=== PATIENT | female | born 1950 | race Caucasian/White ===

== ENCOUNTER 2019-08-09 14:56 | Outpatient (CLI) | payer MEDICARE, SELFPAY ==
--- NOTE | 2019-08-09 15:05 | MR_ITS ---
WS: [id number] MRI LUMBAR SPINE NONCONTRAST TECHNIQUE: Sagittal T1, T2 and STIR imaging. Axial T1 and T2 imaging. CLINICAL INFORMATION: LOW BACK PAIN COMPARISON: None. FINDINGS: Mild lumbar curve. Slight retrolisthesis L2 on L3. Slight anterolisthesis L4 on L5. Schmorl's nodes i n the lower thoracic spine. No high-grade central canal stenosis. Tarlov cysts in the sacrum. L1-L2: Normal. L2-L3: Mild annular bulging with slight effacement of ventral thecal sac. Mild facet arthropathy. Spi nal canal and foramen are patent. L3-L4: Mild annular bulging with slight effacement of ventral thecal sac. Mild facet arthropathy. Spi nal canal and foramen are patent. L4-L5: Grade 1 anterolisthesis L4 on L5. Left foraminal protrusion with mild to moderate left and no significant right foraminal narrowing. Contact of the exiting left L4 nerve root. Mild right foramina l narrowing. Moderate to advanced facet arthropathy. L5-S1: Left eccentric disc osteophyte complex contacts the exiting left L5 nerve root with mild left foraminal narrowing. Right foramen is patent. Moderate facet arthropathy. Visualized pelvic bony structures: Normal. Paravertebral soft tissues: Normal. MR/MR lumbar spine wo con* [id number] IMPRESSION: 1. Left foraminal disc protrusion L4-5 slightly impinges the exiting L4 nerve root with moderate left foraminal narrowing. Recommend correlation for left L4 nerve root symptoms. 2. Left eccentric disc osteophyte complex L5-S1 contacts the exiting left L5 n erve root with mild left foraminal narrowing. 3. Moderate facet arthropathy L3-L4 and L4-L5.
--- NOTE | 2019-08-09 15:05 | MR_ITS ---
WS: [id number] INDICATION: Bilateral hip pain TECHNIQUE: MRI bilateral hips without gadolinium enhancement. Axial T1, axial T2, coronal T1, coronal STIR, sagittal T1, sagittal T2 imaging. FINDINGS: Normal anatomic alignment. No acute fractures. Moderate degenerative arthritis both hips wi th joint space narrowing. No subchondral edema. No significant joint effusion. No edema in the underlying acetabulum. Normal pubic rami. Normal bone marrow signal in the femoral he ads and necks. No evidence of avascular necrosis or subchondral collapse. Proximal femoral shafts are normal in appearance. Normal bony pelvis. Sacrum is normal in appearance. Normal pelvic soft tissues . No inguinal lymphadenopathy. MR/MR hips BI wo con [id number] IMPRESSION: 1. Moderate degenerative arthritis both hips with joint space narrowing. No ac [place] fractures. 2. Normal bone marrow signal in both femoral heads and necks. No evidence of a vascular necrosis. 3. Normal bone marrow signal in the pelvis and sacrum. 4. Normal visualized soft tissues.
== END 2019-08-09 14:57 | disposition home or self-care (01) ==
PROVIDERS: Family Provider Family Medicine; PCP Family Medicine; Visit Provider Family Medicine
DX: M51.26 Other intervertebral disc displacement, lumbar region (principal); M47.816 Spondylosis without myelopathy or radiculopathy, lumbar region; M16.0 Bilateral primary osteoarthritis of hip; G30.9 Alzheimer's disease, unspecified; F02.80 Dementia in other diseases classified elsewhere, unspecified severity, without behavioral disturbance, psychotic disturbance, mood disturbance, and anxiety; M54.9 Dorsalgia, unspecified; F44.4 Conversion disorder with motor symptom or deficit; M51.16 Intervertebral disc disorders with radiculopathy, lumbar region
CPT/HCPCS: 72148; 73721; 96116; 99204

== ENCOUNTER 2019-08-17 06:00 | Outpatient (RCR) | payer MEDICARE, SELFPAY | END 2019-09-03 23:59 | disposition home or self-care (01) | LOC: WPT 06:00 | PROVIDERS: Family Provider Family Medicine; PCP Family Medicine; Referring Provider Specialist; Visit Provider Specialist | DX: M54.9 Dorsalgia, unspecified (principal) | CPT/HCPCS: 97110; 97163 ==

== ENCOUNTER 2019-09-04 06:00 | Outpatient (RCR) | payer MEDICARE, SELFPAY | END 2019-10-04 23:59 | disposition home or self-care (01) | LOC: WPT 06:00 | PROVIDERS: Family Provider Family Medicine; PCP Family Medicine; Referring Provider Specialist; Visit Provider Specialist | DX: M54.9 Dorsalgia, unspecified (principal) | CPT/HCPCS: 97110; 97112; 97140; G0283 ==

== ENCOUNTER → 2019-09-09 12:34 | Outpatient (BNVA) | payer MEDICARE, SELFPAY | PROVIDERS: Family Provider Family Medicine; PCP Family Medicine; Visit Provider Anesthesiology | DX: M51.16 Intervertebral disc disorders with radiculopathy, lumbar region (principal); M79.651 Pain in right thigh; M79.652 Pain in left thigh; Z79.891 Long term (current) use of opiate analgesic | CPT/HCPCS: 99214 ==

== ENCOUNTER 2019-12-05 06:00 | Outpatient (RCR) | payer MEDICARE, SELFPAY | END 2020-01-03 23:59 | disposition home or self-care (01) | LOC: WPT 06:00 | PROVIDERS: Family Provider Family Medicine; PCP Family Medicine; Referring Provider Licensed Practical Nurse; Visit Provider Licensed Practical Nurse | DX: M51.17 Intervertebral disc disorders with radiculopathy, lumbosacral region (principal) | CPT/HCPCS: 97110; 97163 ==

== ENCOUNTER → 2019-12-08 13:41 | Outpatient (BNVA) | payer MEDICARE, SELFPAY | PROVIDERS: Family Provider Family Medicine; PCP Family Medicine; Visit Provider Anesthesiology | DX: M51.16 Intervertebral disc disorders with radiculopathy, lumbar region (principal); M54.9 Dorsalgia, unspecified; Z79.891 Long term (current) use of opiate analgesic | CPT/HCPCS: 99214 ==

== ENCOUNTER 2020-01-04 06:00 | Outpatient (RCR) | payer MEDICARE, SELFPAY | END 2020-02-03 23:59 | disposition home or self-care (01) | LOC: WPT 06:00 | PROVIDERS: Family Provider Family Medicine; PCP Family Medicine; Referring Provider Licensed Practical Nurse; Visit Provider Licensed Practical Nurse | DX: M47.816 Spondylosis without myelopathy or radiculopathy, lumbar region (principal); M51.17 Intervertebral disc disorders with radiculopathy, lumbosacral region; M43.17 Spondylolisthesis, lumbosacral region | CPT/HCPCS: 97110; 97112 ==

== ENCOUNTER → 2020-01-16 13:33 | Outpatient (BNVA) | payer MEDICARE, SELFPAY | PROVIDERS: Family Provider Family Medicine; PCP Family Medicine; Visit Provider Specialist | DX: G30.9 Alzheimer's disease, unspecified (principal); F02.80 Dementia in other diseases classified elsewhere, unspecified severity, without behavioral disturbance, psychotic disturbance, mood disturbance, and anxiety; M51.17 Intervertebral disc disorders with radiculopathy, lumbosacral region; M46.1 Sacroiliitis, not elsewhere classified; R41.9 Unspecified symptoms and signs involving cognitive functions and awareness | CPT/HCPCS: 96116; 99213; 99214 ==

== ENCOUNTER 2020-01-17 12:58 | Outpatient (CLI) | payer MEDICARE, SELFPAY ==
--- NOTE | 2020-01-17 14:15 | XR_ITS ---
WS: [id number] Lumbar spine with flexion, extension, and neutral lateral, 01/17/2020 Clinical Data: Low back pain Comparison: None. Findings: No compression fractures or subluxation is seen. There is degenerative disc narrowing at L5-S1. Minim al 0.3 cm subluxation of L4 on L5 is seen. No increased subluxation is seen on flexion or extension. There is minimal limitation of motion on fl exion and extension. There is calcification of the wall of the abdominal aorta but no aneurysm is se en. XR/XR lumbar spine f/e only [id number] Impression: 1. Limitation of motion on flexion and extension. 2. Anterolisthesis of L4 and L5 0.3 cm. 3. Degenerative disc narrowing at L5-S1.
== END 2020-01-17 12:59 | disposition home or self-care (01) ==
LOC: RAD 12:59
PROVIDERS: PCP Family Medicine; Visit Provider Licensed Practical Nurse
DX: M54.5 Low back pain (principal)
CPT/HCPCS: 72120

== ENCOUNTER 2020-01-17 13:03 | Outpatient (CLI) | payer MEDICARE, SELFPAY ==
--- NOTE | 2020-01-17 12:45 | USCV_ITS ---
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
--- NOTE | 2020-01-17 14:15 | USCV_ITS ---
Melvi Jaeger Age: 69 Gender: F : 1950 Exam Date: 01/17/2020 14:16 Ordering Phys: Rozina Kauffman Technologist: Jing Avilez [place] [facility] [place]ication: lower extremity edema BP: / HR: 61 Rhythm: Sinus Technical Quality: TDS due to body habitus MEASUREMENTS (Male / Female) Normal Values 2D ECHO LV Diastolic Diameter PLAX 3.9 cm 4.2 - 5.9 / 3.9 - 5.3 cm LV Systolic Diameter PLAX 2.3 cm IVS Diastolic Thickness 1.4 cm 0.6 - 1.0 / 0.6 - 0.9 cm IVS Systolic Thickness 1.6 cm LVPW Diastolic Thickness 1.1 cm 0.6 - 1.0 / 0.6 - 0.9 cm LVPW Systolic Thickness 1.9 cm LVOT Diameter 2.0 cm LV Ejection Fraction 2D Teich 73.0 % LV Ejection Fraction MOD 2C 82.1 % LV Ejection Fraction 2C AL 80.8 % LA Diameter 3.9 cm LA Width 4.1 cm LA Height 6.2 cm RA Width 4.0 cm RA Height 5.7 cm M-MODE LV Diastolic Diameter MM 6.1 cm 4.2 - 5.9 / 3.9 - 5.3 cm LV Systolic Diameter MM 4.4 cm LV Ejection Fraction MM Teich 52.7 % IVS Diastolic Thickness MM 0.7 cm 0.6 - 1.0 / 0.6 - 0.9 cm IVS Systolic Thickness MM 0.9 cm LVPW Diastolic Thickness MM 0.5 cm 0.6 - 1.0 / 0.6 - 0.9 cm LVPW Systolic Thickness MM 1.1 cm Aortic Annulus Diameter 3.0 cm LA Ao Ratio MM 1.3 MV E Point Septal Separation 0.9 cm DOPPLER AV Peak Velocity 132.0 cm/s LVOT Peak Velocity 90.0 cm/s AV Area Cont Eq vti 1.9 cm squared AV Area Cont Eq pk 2.2 cm squared MV Peak Velocity 124.0 cm/s MV Area PHT 3.9 cm squared Mitral E to A Ratio 2.7 MV E' Velocity 13.0 cm/s Mitral E to MV E' Ratio 10.4 Mitral E to LV E' Lateral Ratio 8.4 Mitral E to LV E' Septal Ratio 13.6 TR Peak Velocity 297.0 cm/s TR Peak Gradient 35.3 mmHg Right Atrial Pressure 3.0 mmHg Pulmonary Artery Systolic Pressu 38.3 mmHg PV Peak Velocity 88.0 cm/s RV Acceleration Time 0.1 s FINDINGS Left Ventricle Normal left ventricular size and systolic function with no regional wall motion abnormalities. Mild concentric left ventricular hypertrophy left ventricular ejection fraction is estimated at 60%. Grade III diastolic dysfunction (restrictive filling pattern), severely elevated filling pressures. Right Ventricle Normal right ventricular size and systolic function, RVSP 38.3 mmHg. Right Atrium Normal right atrial size. Right atrial pressure estimated at 3 mmHg. Left Atrium Mildly increased left atrial size. Mitral Valve Structurally normal mitral valve. No mitral valve stenosis. Mild-moderate mitral valve regurgitation. Aortic Valve Structurally normal trileaflet aortic valve. No aortic valve stenosis. No aortic valve regurgitation. Tricuspid Valve Structurally normal tricuspid valve. Moderate tricuspid valve regurgitation. Pulmonic Valve Pulmonic valve not well visualized. No pulmonary valve stenosis. Trace pulmonary valve regurgitation. Pericardium No pericardial effusion. Aorta Normal size aortic root and proximal ascending aorta. CONCLUSIONS 1. This is a technically difficult study. 2. Normal left ventricular size and systolic function with no regional wall motion abnormalities. Mild concentric left ventricular hypertrophy left ventricular ejection fraction is estimated at 60%. Grade III diastolic dysfunction (restrictive filling pattern), severely elevated filling pressures. 3. Pulmonary artery pressure estimated at 38 mmHg. 4. Moderate tricuspid valve regurgitation. 5. No prior similar studies to compare. Liliane Negrete MD (Electronically Signed) Final Date: 18 January 2020 13:34 S
== END 2020-01-17 13:04 | disposition home or self-care (01) ==
LOC: US 13:03
PROVIDERS: PCP Family Medicine; Visit Provider Nurse Practitioner Family
DX: R60.0 Localized edema (principal); I73.9 Peripheral vascular disease, unspecified; I07.1 Rheumatic tricuspid insufficiency
CPT/HCPCS: 93306; 93925

== ENCOUNTER 2020-02-04 06:00 | Outpatient (RCR) | payer MEDICARE, SELFPAY | END 2020-03-05 23:59 | disposition home or self-care (01) | LOC: WPT 06:00 | PROVIDERS: PCP Family Medicine; Referring Provider Licensed Practical Nurse; Visit Provider Licensed Practical Nurse | DX: M47.816 Spondylosis without myelopathy or radiculopathy, lumbar region (principal); M51.17 Intervertebral disc disorders with radiculopathy, lumbosacral region | CPT/HCPCS: 97110; 97112; 97530 ==

== ENCOUNTER → 2020-02-16 09:30 | Outpatient (BNVA) | payer MEDICARE, SELFPAY | PROVIDERS: PCP Family Medicine; Visit Provider Anesthesiology | DX: M51.16 Intervertebral disc disorders with radiculopathy, lumbar region (principal); M47.816 Spondylosis without myelopathy or radiculopathy, lumbar region; M43.17 Spondylolisthesis, lumbosacral region; M54.9 Dorsalgia, unspecified; Z79.891 Long term (current) use of opiate analgesic | CPT/HCPCS: 99214 ==

== ENCOUNTER 2020-03-06 06:00 | Outpatient (RCR) | payer MEDICARE, SELFPAY | END 2020-04-04 23:59 | disposition home or self-care (01) | LOC: WPT 06:00 | PROVIDERS: PCP Family Medicine; Referring Provider Licensed Practical Nurse; Visit Provider Licensed Practical Nurse | DX: M51.17 Intervertebral disc disorders with radiculopathy, lumbosacral region (principal); M43.17 Spondylolisthesis, lumbosacral region | CPT/HCPCS: 97110 ==

== ENCOUNTER → 2020-04-12 14:00 | Outpatient (BNVA) | payer MEDICARE, SELFPAY | PROVIDERS: PCP Family Medicine; Visit Provider Anesthesiology | DX: M51.16 Intervertebral disc disorders with radiculopathy, lumbar region (principal); M47.816 Spondylosis without myelopathy or radiculopathy, lumbar region; M51.17 Intervertebral disc disorders with radiculopathy, lumbosacral region; M43.17 Spondylolisthesis, lumbosacral region; M54.9 Dorsalgia, unspecified; Z79.891 Long term (current) use of opiate analgesic | CPT/HCPCS: 99213; 99214 ==

== ENCOUNTER 2020-04-19 10:14 | Inpatient (IN) | payer MEDICARE, SELFPAY ==
[2020-04-19] VITALS (39 sets, daily range): BP systolic 140–178; BP diastolic 77–110; PULSE 88–117; RESP 10–22; TEMP 36.7–36.8; O2SAT 88–97; BMI 34.3
--- NOTE | 2020-04-19 10:25 | ED_ITS ---
HPI - Chest Pain General: Chief Complaint: Chest Pain Stated Complaint: NonStemi/Tx from [facility] Time Seen by Provider: 04/19/20 10:24 History of Present Illness: HPI narrative: 62-year-old female brought in on transfer from [facility] she lives in this area as of no history of coronary disease she had a previous stent to an unknown vessel she is usually followed by Dr. Faith. I reviewed his previous note she start having chest pain intermittently yesterday she been trout fishing and started getting worsening chest pain went into the emergency room was evaluated at the local hospital. Her initial troponin was over 900 her 2-hour troponin was significantly down in the 760. We reviewed the chart that was sent here she is a little past due for her 6-hour troponin will draw immediately. She is pain-free at this time with nitro on the chest MD complaint: chest pain Pertinent past history: coronary artery disease Onset (ago): hour(s) Timing of current episode: episodic Onset: during exertion Pain location: left chest Severity: moderate Quality: tightness and heaviness Relieving factors: nitroglycerin and rest Exacerbating factors: exertion Associated symptoms: Reports dyspnea; Deny abdominal pain, diaphoresis, fever(s), leg edema, nausea, palpitations, sense of impending doom, syncope or vomiting Treatment prior to arrival: aspirin, nitroglycerin and oxygen Review of Systems Const: Denies: fever(s) or diaphoresis ENMT: Denies: throat pain, ear or mastoid pain, nasal discharge or nasal congestion Card: Denies: palpitations or syncope Resp: Reports: dyspnea GI: Denies: abdominal pain, nausea or vomiting : Denies: flank pain, difficulty voiding, dysuria, urinary frequency or urinary urgency Skin/Breast: Denies: rash or pruritus PFSH ED PFSH: Medical History CAD (coronary artery disease) last coronary angiogram 2018- non obstructive disease Encounter for long-term use of opiate analgesic History of myocardial infarction Hx of gastroesophageal reflux (GERD) Hypercholesterolemia Hypertension Intervertebral disc disorder with radiculopathy of lumbosacral region Opioid contract exists 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 region Surgical History History of hysterectomy for cancer Hx of cholecystectomy Stented coronary artery Family History Father CAD (coronary artery disease) Hypertension Stroke Mother Hypertension Social History Smoking and tobacco status: former smoker Second hand smoke exposure: No Alcohol intake: never Household members: significant other Marital status: / Current occupational status: retired and disabled History of recent travel: No Physical Exam Const: COMMON NORMALS: no acute distress GENERAL APPEARANCE: cooperative and comfortable ORIENTATION/CONSCIOUSNESS: Yes awake, Yes oriented to person, Yes oriented to place and Yes oriented to time HENMT: COMMON NORMALS: normocephalic, atraumatic and hearing grossly normal bilaterally HEAD & SCALP: normocephalic and atraumatic Neck/C-Spine: COMMON NORMALS: no JVD Resp: COMMON NORMALS: normal respiratory effort, No retractions, No use of accessory muscles and clear to auscultation bilaterally AUSCULTATION: clear to auscultation bilaterally Cardio: COMMON NORMALS: no JVD, regular rate, regular rhythm and No murmurs present (Cardio) RATE: regular rate RHYTHM: regular rhythm GI: COMMON NORMALS: Soft to palpation and No hepatosplenomegaly present AUSCULTATION: Yes normoactive bowel sounds PALPATION: Yes Soft to palpation, No Tenderness to palpation present (GI), No Guarding due to palpation present (GI) and Yes No hepatosplenomegaly present Extremity: COMMON NORMALS: normal to inspection, capillary refill normal, no clubbing, cyanosis or edema, no calf tenderness and no pedal edema Neuro: SENSORIUM/ORIENTATION: Yes oriented to person, Yes oriented to place and Yes oriented to time Skin: COMMON NORMALS: no rashes or lesions noted GENERAL SKIN EXAM: no rashes or lesions noted Course Vital Signs: Vital signs: Vital Signs Temperature 98.3 F 04/19/20 10:15 Pulse Rate 93 04/19/20 10:15 Respiratory Rate 20 H 04/19/20 10:15 Blood Pressure 170/108 04/19/20 10:15 Pulse Oximetry 93 04/19/20 10:47 MDM - Chest Pain MDM Narrative: Medical decision making narrative: Discussed with Dr. Titus. She has so admit to the hospitalist patient will be admitted for NSTEMI discussed Dr. Ruth as well Discharge Plan Discharge Patient Disposition: Admitted As Inpatient Clinical Impression: Non-ST elevation IL (NSTEMI) Condition: Stable Prescriptions: No Action simethicone [Gas-X Extra Strength] 125 mg tablet,chewable 125 mg PO BID PRN (Reason: FLATULANCE) RF: 0 amlodipine 10 mg tablet 10 mg PO DAILY RF: 0 aspirin [Aspir-81] 81 mg tablet,delayed release (DR/EC) 81 mg PO DAILY RF: 0 buspirone 10 mg tablet 10 mg PO BID RF: 0 cetirizine 10 mg tablet 5 mg PO DAILY RF: 0 donepezil 10 mg tablet 10 mg PO DAILY RF: 0 lisinopril 40 mg tablet 40 mg PO DAILY RF: 0 omeprazole 20 mg capsule,delayed release(DR/EC) 20 mg PO DAILY RF: 0 pramipexole 0.125 mg tablet 0.125 mg PO DAILY RF: 0 atorvastatin 80 mg tablet 80 mg PO DAILY RF: 0 memantine [Namenda] 10 mg tablet 10 mg PO BID Qty: 180 RF: 1 metoprolol segura-hydrochlorothiaz 50-12.5 mg tablet extended release 24 hr 0.5 tab PO BID RF: 0 furosemide [Lasix] 20 mg tablet 20 mg PO DAILY RF: 0 oxycodone-acetaminophen [Percocet] 10-325 mg tablet 1 tab PO TID PRN (Reason: pain) 30 Days Qty: 90 RF: 0 tramadol 50 mg tablet 100 mg PO TID PRN (Reason: pain) 30 Days Qty: 180 RF: 1 baclofen 20 mg tablet 20 mg PO TID PRN (Reason: spasms) 90 Days Qty: 270 RF: 0 isosorbide mononitrate 30 mg Tablet Extended Release 24 Hr 30 mg PO DAILY RF: 0 Referrals: Jorge Styles [Primary Care Provider] - Coding Level of Care Code ED [employer] for Caridad Clayton
[2020-04-19] MEDS: ondansetron 2 mg/ML SDV 2 mL 4 MG IVP (11:14)
[2020-04-19] MEDS: morphine 4 mg/mL SDV 1 mL IVP (11:16)
[2020-04-19 12:22] LABS: Troponin T (5th) Once 766 ng/L (0-10)
--- NOTE | 2020-04-19 12:30 | PC.NURSE ---
pt from er, assessment performed, dr aranda at bedside. ekg ordered, chest pain 7/10, order nitro drip. call light within reach, will continue to monitor.
--- NOTE | 2020-04-19 12:38 | ECG_ITS ---
[facility] Test Date: 2020-04-19 Pat Name: Melvi Jaeger Department: Room: 101 Gender: Female [employer] Operator: : 1950 Requested By: Yolande Ruth Order Number: [id number] Dowd MD: Glen Ramos M.D. Measurements Intervals [place] Rate: 92 P: 59 MS: 165 QRS: -21 QRSD: 87 T: -6 QT: 341 QTc: 423 Interpretive Statements SINUS RHYTHM BORDERLINE LEFT AXIS DEVIATION [QRS AXIS < -20] LOW QRS VOLTAGE IN PRECORDIAL LEADS [QRS DEFLECTION < 1.0 mV IN CHEST LEADS] PATTERN CONSISTENT WITH PULMONARY DISEASE No previous ECG available for comparison Electronically Signed On 04-19-2020 18:38:53 CDT by Geln Ramos M.D. [id number]
--- NOTE | 2020-04-19 12:49 | PM.CONSULT ---
Providers/Reason For Consult Consulting Physican/Specialty*: Dr. Negrete, cardiology Reason for Consult*: Non-ST elevation DC Attending Physician: Yolande Ruth DO Primary Care Provider: Jorge Styles History of Present Illness History of Present Illness Melvi Jaeger is a 70 year old female with past medical history of CAD with history of DC and intervention to an unknown vessel in , hypertension, dyslipidemia, obesity and varicose veins with bilateral lower extremity swelling and cognitive dysfunction. She previously used to follow-up with Dr. Faith and last saw him on 02 February 2020. Patient states that last night she woke up with 9/10 retrosternal chest discomfort that radiated to her back and bilateral arms. She complained of nausea, shortness of breath with that. She tells me this has happened 2 days back as well for which she used nitroglycerin spray that helped her with her symptoms. She is not a great historian. Ambulance was called and she was taken to ER in [place] around 1:30 AM. Her hemoglobin was 13, hematocrit 40.6, potassium 3.8, BUN 16, creatinine 0.9, AST 48. Her baseline troponin T was 922 and at 2 hours was 764. She received metoprolol 5 mg IV, aspirin 324 mg and seems like 4000 units IV of heparin was given. She was transferred to [facility] for further management. blood pressure on arrival was 170/108 mmHg. Troponin T 766. I have been asked to evaluate the patient and assist in further management. At the time of evaluation, she has chest pain 4/10. And blood pressure is elevated. Heparin drip was off in the ER and has not been running. Review of Systems Const: Denies: fever(s), chills, change in appetite, change in weight, fatigue or malaise Eyes: Denies: change in vision or eye discharge ENMT: Denies: throat pain, swelling of lips/tongue, oral sores, bleeding gums, nasal congestion, epistaxis or post nasal drip Card: Denies: chest pain, palpitations, irregular heart rhythm, edema, lightheadedness, syncope, dyspnea on exertion, orthopnea or leg pain with exertion Resp: Denies: dyspnea, productive cough, wheezing or hemoptysis GI: Denies: abdominal pain, nausea, vomiting, hematemesis, heartburn, diarrhea, constipation, change in bowel habits, hematochezia or melena : Denies: difficulty voiding, dysuria, oliguria, hematuria or sexual dysfunction Musc: Denies: back pain, extremity swelling, joint pain or muscle weakness Skin/Breast: Denies: rash, erythema, new lesions or change in hair Neuro: Denies: numbness in extremities, weakness in extremities, lack of coordination, difficulty walking, dizziness, vertigo or confusion Psych: Denies: anxiety, depression, irritability, suicidal ideation or homicidal ideation Endo: Denies: tired all the time, cold intolerance or heat intolerance Fernie/Lymph: Denies: easy bruising, easy bleeding, petechiae or purpura All/Imm: Denies: throat swelling, tongue swelling or acute wheezing Meds/Allergies Home Medications and Allergies Home Medications Medication Instructions Recorded Confirmed Last Taken Type amlodipine 10 mg tablet 10 mg PO DAILY 08/09/19 04/19/20 04/18/20 History aspirin 81 mg tablet,delayed 81 mg PO DAILY 08/09/19 04/19/20 04/18/20 History release atorvastatin 80 mg tablet 80 mg PO DAILY 08/09/19 04/19/20 04/18/20 History buspirone 10 mg tablet 10 mg PO BID 08/09/19 04/19/20 04/18/20 History cetirizine 10 mg tablet 5 mg PO DAILY 08/09/19 04/19/20 04/18/20 History donepezil 10 mg tablet 10 mg PO DAILY 08/09/19 04/19/20 04/18/20 History lisinopril 40 mg tablet 40 mg PO DAILY 08/09/19 04/19/20 04/18/20 History memantine 10 mg tablet 10 mg PO BID #180 tab 08/09/19 04/19/20 04/18/20 Rx omeprazole 20 mg capsule,delayed 20 mg PO DAILY 08/09/19 04/19/20 04/18/20 History release pramipexole 0.125 mg tablet 0.125 mg PO DAILY 08/09/19 04/19/20 04/18/20 History simethicone 125 mg chewable tablet 125 mg PO BID PRN tab 08/09/19 04/19/20 Unknown History metoprolol succ 50 0.5 tab PO BID 06/09/20 10/15/20 10/14/20 History mg-hydrochlorothiazide 12.5 mg tablet,ext.rel 24 hr furosemide 20 mg tablet 20 mg PO DAILY 01/16/20 04/19/20 04/18/20 History baclofen 20 mg tablet 20 mg PO TID PRN 90 Days #270 tab 04/12/20 04/19/20 04/18/20 Rx oxycodone-acetaminophen 10 mg-325 1 tab PO TID PRN 30 Days #90 tab 04/12/20 04/19/20 04/18/20 Rx mg tablet tramadol 50 mg tablet 100 mg PO TID PRN 30 Days #180 tab 04/12/20 04/19/20 04/18/20 Rx isosorbide mononitrate 30 mg PO DAILY 04/19/20 04/19/20 04/18/20 History Allergies Allergy/AdvReac Type Severity Reaction Status Date / Time Penicillins AdvReac Unknown hives Verified 04/19/20 10:34 Sulfa (Sulfonamide AdvReac Unknown hives Verified 04/19/20 10:34 Antibiotics) PFSH Acute PFSH: Medical History CAD (coronary artery disease) last coronary angiogram 2018- non obstructive disease Diastolic congestive heart failure Encounter for long-term use of opiate analgesic History of myocardial infarction Hx of gastroesophageal reflux (GERD) Hx of skin cancer, basal cell Hypercholesterolemia Hypertension Intervertebral disc disorder with radiculopathy of lumbosacral region Opioid contract exists 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 region Surgical History History of hysterectomy for cancer Hx of cholecystectomy Stented coronary artery Family History Father CAD (coronary artery disease) Hypertension Stroke Mother Hypertension Social History Smoking and tobacco status: former smoker Second hand smoke exposure: No Alcohol intake: never Household members: significant other Marital status: / Current occupational status: retired and disabled History of recent travel: No Vitals/I&O/Wt Last Vital Signs Temp 98.3 F 04/19/20 10:15 Pulse 92 04/19/20 11:41 Resp 16 04/19/20 11:41 BP 157/103 04/19/20 11:41 Pulse Ox 95 04/19/20 11:41 Weight last 48 hrs Weight 200 lb Physical Exam Const: COMMON NORMALS: no acute distress, patient oriented x3 and alert GENERAL APPEARANCE: cooperative, comfortable, well kempt and well hydrated HENMT: COMMON NORMALS: normocephalic, atraumatic, hearing grossly normal bilaterally and external ears normal HEAD & SCALP: normocephalic and atraumatic FACE & SINUS: normal facial exam; no edema EXTERNAL EAR: Yes external ears normal Eye: COMMON NORMALS: Equal, round and reactive pupils present, EOMs intact bilaterally, conjunctivae normal and no scleral icterus GENERAL EYE: appearance normal, both eyes and all related structures ALIGNMENT: Yes alignment normal CONJUNCTIVA: Yes conjunctivae normal SCLERA: sclerae normal PUPIL: Yes Equal, round and reactive pupils present Neck/C-Spine: COMMON NORMALS: no lymphadenopathy, supple and no JVD GENERAL: Yes normal visual inspection, Yes trachea midline and No Mass present (neck) CAROTIDS: Yes normal carotid upstroke CERVICAL SPINE: Yes cervical ROM normal Chest: COMMONS NORMALS: normal inspection of the chest and normal palpation of entire chest wall CHEST: Yes Symmetrical chest wall rise, No mass, No tenderness, No Surgical scars present (Chest) and No rash Resp: COMMON NORMALS: clear to auscultation bilaterally EFFORT & INSPECTION: Yes able to speak in complete sentences and No respiratory distress AUSCULTATION: clear to auscultation bilaterally, no crackles, no rales, no rhonchi, no wheezes and vesicular breath sounds Cardio: COMMON NORMALS: no JVD, regular rate, regular rhythm, S1 normal heart sound present, S2 normal heart sound present and Peripheral pulses 2+ throughout PALPATION: normal PMI RATE: regular rate RHYTHM: regular rhythm HEART SOUNDS: S1 normal heart sound present, S2 normal heart sound present, no click, no gallops and no murmurs BRUITS: no carotid bruits PERIPHERAL PULSES: Peripheral pulses 2+ throughout, radial pulses present, posterior tibial pulses present and dorsalis pedis present GI: COMMON NORMALS: Soft to palpation AUSCULTATION: Yes normoactive bowel sounds PALPATION: Yes Soft to palpation, No Tenderness to palpation present (GI), No Guarding due to palpation present (GI), No Rigid due to palpation and No Ascites present Extremity: GENERAL: No calf tenderness, No clubbing, No cyanosis, Yes edema and No pallor Neuro: COMMON NORMALS: patient oriented x3 and gait normal SENSORIUM/ORIENTATION: Yes alert Psych: COMMON NORMALS: Normal thought process present and speech normal APPEARANCE: Yes well kempt SPEECH: Yes normal speech MOOD & AFFECT: Yes euthymic mood THOUGHT PROCESS: Normal thought process present THOUGHT CONTENT: Yes Normal thought content present Skin: HAIR: normal NAILS: normal and no clubbing Data Other Data: Attestation for Other Data: I personally reviewed and interpreted the following: Other data: Transthoracic echocardiogram 17 January 2020 CONCLUSIONS 1. This is a technically difficult study. 2. Normal left ventricular size and systolic function with no regional wall motion abnormalities. Mild concentric left ventricular hypertrophy left ventricular ejection fraction is estimated at 60%. Grade III diastolic dysfunction (restrictive filling pattern), severely elevated filling pressures. 3. Pulmonary artery pressure estimated at 38 mmHg. 4. Moderate tricuspid valve regurgitation. 5. No prior similar studies to compare. Lower extremity arterial duplex 17 January 2020 Normal resting GEOVANI on right and supranormal resting GEOVANI on left side. Near normal Doppler flow velocities. No significant arterial obstructions based on these findings. A&P Assessment and plan (1) Non-ST elevation DC (NSTEMI): Patient has prior history of CAD with stenting several years back in unknown vessel. Having typical anginal chest discomfort with significantly elevated troponin. EKG with sinus rhythm borderline left axis deviation and low QRS voltage in precordial leads. -Patient received aspirin 324mg. Weight-based Lovenox and Plavix 600 mg p.o. x1. -continue with nitroglycerin drip. -I will keep her n.p.o. for possible coronary angiogram later today with Dr. Ramos. -Risks and benefits discussed with the patient and she is agreeable with the plan. Status: Acute (2) Hypertension: Blood pressure elevated. Continue to closely monitor with nitroglycerin drip. -Home medications restarted Status: Acute (3) Hypercholesterolemia: Status: Acute (4) CAD (coronary artery disease): There is documentation of coronary angiogram in 2018 with no obstructive disease. I am unable to actual report of that. -Last stress test at [place] was positive for anterolateral ischemia. Status: Chronic (5) Alzheimer disease: Status: Acute Consult Attestations Medical Necessity Statement: Needs hospital stay for non-ST elevation DC Coding Level of Care Code Acute Pack Out Operator for Chg Fwd Exam Comprehensive Diagnoses Non-ST elevation DC (NSTEMI) I21.4 Hypertension I10 Hypercholesterolemia E78.00 CAD (coronary artery disease) I25.10 Alzheimer disease G30.9; F02.80
[2020-04-19] MEDS: nitroglycerin drip 50 MG/250 ML PREMIX IV (13:19)
--- NOTE | 2020-04-19 13:19 | PC.NURSE ---
nitro drip and fluids started per orders. new iv started in L forearm. call light within reach. will continue to monitor.
[2020-04-19] MEDS: sodium chloride 0.9% 1,000 ML 100 ML IV (13:26)
--- NOTE | 2020-04-19 14:14 | USCV_ITS ---
Melvi Jaeger Age: 70 Gender: F : 1950 Exam Date: 04/19/2020 14:51 Ordering Phys: Liliane Negrete MD ([email or web address]) Technologist: Viktor Marquez [place] [facility] [place]: NSTEMI BP: 155 / 90 HR: 95 Rhythm: Sinus Technical Quality: Adequate MEASUREMENTS (Male / Female) Normal Values 2D ECHO LV Diastolic Diameter PLAX 4.1 cm 4.2 - 5.9 / 3.9 - 5.3 cm LV Systolic Diameter PLAX 2.3 cm IVS Diastolic Thickness 0.8 cm 0.6 - 1.0 / 0.6 - 0.9 cm IVS Systolic Thickness 1.3 cm LVPW Diastolic Thickness 0.9 cm 0.6 - 1.0 / 0.6 - 0.9 cm LVPW Systolic Thickness 1.3 cm LVOT Diameter 2.0 cm LV Ejection Fraction 2D Teich 75.6 % LV Ejection Fraction MOD 2C 52.9 % LV Ejection Fraction 2C AL 52.1 % LA Diameter 3.2 cm LA Width 3.7 cm LA Height 4.7 cm RA Width 3.1 cm RA Height 4.0 cm M-MODE LV Diastolic Diameter MM 5.9 cm 4.2 - 5.9 / 3.9 - 5.3 cm LV Systolic Diameter MM 4.3 cm LV Ejection Fraction MM Teich 51.3 % IVS Diastolic Thickness MM 1.2 cm 0.6 - 1.0 / 0.6 - 0.9 cm IVS Systolic Thickness MM 1.6 cm LVPW Diastolic Thickness MM 1.0 cm 0.6 - 1.0 / 0.6 - 0.9 cm LVPW Systolic Thickness MM 1.8 cm RV Diastolic Diameter MM 0.8 cm Aortic Annulus Diameter 3.4 cm LA Ao Ratio MM 1.1 MV E Point Septal Separation 0.6 cm DOPPLER AV Peak Velocity 146.0 cm/s LVOT Peak Velocity 120.0 cm/s AV Area Cont Eq vti 2.5 cm squared AV Area Cont Eq pk 2.7 cm squared MV Area PHT 5.1 cm squared Mitral E to A Ratio 1.1 MV E' Velocity 50.0 cm/s Mitral E to MV E' Ratio 11.4 Mitral E to LV E' Lateral Ratio 8.8 Mitral E to LV E' Septal Ratio 16.0 TR Peak Velocity 308.0 cm/s TR Peak Gradient 37.9 mmHg FINDINGS Left Ventricle Normal left ventricular cavity size. Normal left ventricular systolic function. Left ventricular ejection fraction is estimated at 60 %. There is possible hypokinesis of mid anteroseptal and apical septal yousif. Normal diastolic function. Right Ventricle Normal right ventricular size and systolic function. Right ventricular systolic pressure 38 mmHg. Right Atrium Upper normal right atrial size. Left Atrium Mildly increased left atrial size. Mitral Valve Mildly thickened mitral valve. No mitral valve stenosis. Trace - mild mitral valve regurgitation. Aortic Valve Aortic valve not well visualized. No aortic valve stenosis. No aortic valve regurgitation. Tricuspid Valve Structurally normal tricuspid valve. Pulmonic Valve Pulmonic valve not well visualized. Pericardium No pericardial effusion. Aorta Normal-sized aortic root. CONCLUSIONS 1. This is a technically difficult study. 2. Normal left ventricular cavity size. Normal left ventricular systolic function. Left ventricular ejection fraction is estimated at 60 %. There is possible hypokinesis of mid anteroseptal and apical septal yousif. Normal diastolic function. 3. Pulmonary artery pressure estimated at 38 mmHg. 4. When compared to previous echocardiogram dated 01/17/2020, there may be possible hypokinesis of anteroseptal wall. Liliane Negrete MD (Electronically Signed) Final Date: 19 April 2020 18:47 S
[2020-04-19] MEDS: enoxaparin 100 mg/mL Syringe SUBCUT (14:22)
[2020-04-19] MEDS: clopidogrel 300 mg Tablet 600 MG PO (14:22)
--- NOTE | 2020-04-19 15:12 | P.HP_ITS ---
Providers/Chief Complaint Admitting Physician: Yolande Ruth DO Primary Care Provider: Jorge Styles Chief Complaint: STEMI/ TRANSFER FROM [facility] History of Present Illness Melvi Jaeger is a 70 year old female with a past medical history of coronary artery disease with history of stenting x5, hypertension, hyperlipidemia and diastolic congestive heart failure that presented to the emergency department at an outside facility due to chest pain. Patient was noted to have concern for non-ST elevation TN and transferred to [facility] for further evaluation and treatment. Patient reports that she followed previously with Dr. Faith before his mcc, has not seen her new motors and controls tester. She stated that she has been having chest pain that is located in the center of her chest that is worse with activity. Stated that with any walking or exertion she will begin having chest pain and shortness of breath. Patient stated that her symptoms have been progressively worse over the past 2 days and became really bad this morning. She stated the nitroglycerin did help relieve her pain Review of Systems Const: Denies: fever(s) or chills Eyes: Denies: change in vision ENMT: Denies: nasal congestion Card: Reports: chest pain; Denies: palpitations or edema Resp: Denies: dyspnea, productive cough or hemoptysis GI: Denies: abdominal pain, nausea, vomiting, diarrhea, constipation, hematochezia or melena : Denies: dysuria or hematuria Musc: Denies: extremity pain or muscle cramps Skin/Breast: Denies: rash or new lesions Neuro: Denies: headache(s) or dizziness Psych: Denies: anxiety or depression Endo: Denies: polyuria or hot flashes Fernie/Lymph: Denies: easy bruising or easy bleeding Medications/Allergies Home Medications Medication Instructions Recorded Confirmed Last Taken Type amlodipine 10 mg tablet 10 mg PO DAILY 08/09/19 04/19/20 04/18/20 History aspirin 81 mg tablet,delayed 81 mg PO DAILY 08/09/19 04/19/20 04/18/20 History release atorvastatin 80 mg tablet 80 mg PO DAILY 08/09/19 04/19/20 04/18/20 History buspirone 10 mg tablet 10 mg PO BID 08/09/19 04/19/20 04/18/20 History cetirizine 10 mg tablet 5 mg PO DAILY 08/09/19 04/19/20 04/18/20 History donepezil 10 mg tablet 10 mg PO DAILY 08/09/19 04/19/20 04/18/20 History lisinopril 40 mg tablet 40 mg PO DAILY 08/09/19 04/19/20 04/18/20 History memantine 10 mg tablet 10 mg PO BID #180 tab 08/09/19 04/19/20 04/18/20 Rx omeprazole 20 mg capsule,delayed 20 mg PO DAILY 08/09/19 04/19/20 04/18/20 History release pramipexole 0.125 mg tablet 0.125 mg PO DAILY 08/09/19 04/19/20 04/18/20 History simethicone 125 mg chewable tablet 125 mg PO BID PRN tab 08/09/19 04/19/20 Unknown History metoprolol succ 50 0.5 tab PO BID 12/13/19 04/19/20 04/18/20 History mg-hydrochlorothiazide 12.5 mg tablet,ext.rel 24 hr furosemide 20 mg tablet 20 mg PO DAILY 01/16/20 04/19/20 04/18/20 History baclofen 20 mg tablet 20 mg PO TID PRN 90 Days #270 tab 04/12/20 04/19/20 04/18/20 Rx oxycodone-acetaminophen 10 mg-325 1 tab PO TID PRN 30 Days #90 tab 04/12/20 04/19/20 04/18/20 Rx mg tablet tramadol 50 mg tablet 100 mg PO TID PRN 30 Days #180 tab 04/12/20 04/19/20 04/18/20 Rx isosorbide mononitrate 30 mg PO DAILY 04/19/20 04/19/20 04/18/20 History Allergies Allergy/AdvReac Type Severity Reaction Status Date / Time Penicillins AdvReac Unknown hives Verified 04/19/20 10:34 Sulfa (Sulfonamide AdvReac Unknown hives Verified 04/19/20 10:34 Antibiotics) PFSH Acute PFSH: Medical History (Updated 04/19/20 @ 15:15 by Yolande Ruth DO) CAD (coronary artery disease) last coronary angiogram 2017- non obstructive disease Diastolic congestive heart failure Encounter for long-term use of opiate analgesic History of myocardial infarction Hx of gastroesophageal reflux (GERD) Hx of skin cancer, basal cell Hypercholesterolemia Hypertension Intervertebral disc disorder with radiculopathy of lumbosacral region Opioid contract exists 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 region Surgical History History of hysterectomy for cancer Hx of cholecystectomy Stented coronary artery Family History Father CAD (coronary artery disease) Hypertension Stroke Mother Hypertension Social History Smoking and tobacco status: former smoker Second hand smoke exposure: No Alcohol intake: never Household members: significant other Marital status: / Current occupational status: retired and disabled History of recent travel: No Vitals/I&O/Wt Last Vital Signs Temp 98.0 F 04/19/20 12:00 Pulse 96 04/19/20 14:41 Resp 11 L 04/19/20 14:40 BP 159/94 04/19/20 14:40 Pulse Ox 92 04/19/20 14:40 Weight last 48 hrs Weight 96.87 kg Weight 90.718 kg Physical Exam Const: COMMON NORMALS: patient oriented x3 and alert GENERAL APPEARANCE: cooperative ORIENTATION/CONSCIOUSNESS: Yes awake, Yes oriented to person, Yes oriented to place and Yes oriented to time HENMT: COMMON NORMALS: normocephalic and atraumatic HEAD & SCALP: normocephalic and atraumatic Eye: COMMON NORMALS: Equal, round and reactive pupils present PUPIL: Yes Equal, round and reactive pupils present Neck/C-Spine: COMMON NORMALS: supple GENERAL: Yes normal visual inspection Resp: COMMON NORMALS: normal respiratory effort and clear to auscultation bilaterally EFFORT & INSPECTION: Yes able to speak in complete sentences AUSCULTATION: clear to auscultation bilaterally, no rhonchi and no wheezes Cardio: COMMON NORMALS: regular rate, regular rhythm and No murmurs present (Cardio) RATE: regular rate RHYTHM: regular rhythm GI: COMMON NORMALS: Soft to palpation and non-tender INSPECTION: No abdominal distension AUSCULTATION: Yes normoactive bowel sounds PALPATION: Yes Soft to palpation Extremity: COMMON NORMALS: no clubbing, cyanosis or edema and no calf tenderness Neuro: COMMON NORMALS: patient oriented x3, CN's II-XII intact bilaterally, moves all extremities and no focal motor deficits SENSORIUM/ORIENTATION: Yes alert, Yes oriented to person, Yes oriented to place and Yes oriented to time SPEECH: speech normal Psych: COMMON NORMALS: mental status grossly normal and cooperative Skin: COMMON NORMALS: no rashes or lesions noted GENERAL SKIN EXAM: no rashes or lesions noted A&P Assessment and plan (1) Non-ST elevation TN (NSTEMI): Labs from outside facility reviewed Initial troponin at outside facility greater than 900 with recheck here at 766 Given heparin at outside facility, will continue on treatment dose Lovenox Loading dose of Plavix Due to patient continuing to have chest pain and left arm pain will start on nitro drip Continue aspirin, atorvastatin, Imdur, lisinopril, metoprolol Status: Acute (2) Hypertension: Nitroglycerin drip and did not wish for her to become too hypotensive Further medications as noted above Status: Acute (3) Hypercholesterolemia: We will continue on atorvastatin 80 mg daily Status: Acute (4) CAD (coronary artery disease): With history of stenting x5 according to patient report, previously followed by Dr. Faith Cardiology consulted as noted above, appreciate recommendations and assistance in patient's care. Status: Chronic (5) Diastolic congestive heart failure: Appears to be euvolemic at this time, continue home Lasix Status: Acute Additional A&P Information DVT prophylaxis: On treatment dose Lovenox Diet: N.p.o. until cardiac evaluation CODE STATUS: Full code Attestations Medical Necessity Statement*: Inpatient admission due to non-ST elevation TN, expected stay greater than 2 midnights Coding Level of Care Code Acute Director Of Field Service for [facility] Diagnoses Non-ST elevation TN (NSTEMI) I21.4 Hypertension I10 Hypercholesterolemia E78.00 CAD (coronary artery disease) I25.10 Diastolic congestive heart failure I50.30
[2020-04-19 16:06] LABS: Thyroid Stimulating Hormone 0.72 uIU/mL (0.27-4.20)
[2020-04-19] MEDS: metoprolol tartrate 25 mg Tablet PO (17:18)
[2020-04-19] MEDS: BuSPIRONE 10 mg Tablet PO (17:18)
[2020-04-19] MEDS: memantine 5 mg tablet 10 MG PO (17:19)
--- NOTE | 2020-04-19 17:29 | PC.NURSE ---
pt from er, assessment performed, dr aranda at bedside. ekg ordered, chest pain 7/10, order nitro drip. call light within reach, will continue to monitor.
--- NOTE | 2020-04-19 18:18 | XACV_ITS ---
Exam Room: [facility] Ht: 152 cm Wt: 97 kg BSA: 2.08 m2 Gender: Female : 1950 Any Known Allergies: Sulfa Exam Priority: Routine Procedure(s): Procedure Description: Diagnostic procedure Procedure Description: Coronary angiography Procedure Description: Percutaneous coronary intervention using drug-eluting stent x1 Diagnostic Cath Status: Urgent Diagnostic Findings * LAD has mid segment 50% stenosis after takeoff of large diagonal branch. Distally LAD is a small vessel and has diffuse luminal irregularities... * CX has proximal 30 to 40% stenosis it gives rise to 3 OM branches that are small in caliber. OM 2 has proximal to mid 50 to 60% stenosis however it is a small vessel.. * RCA is a large vessel has no significant stenosis.. * Ramus artery has proximal to distal stents. There is severe in-stent restenosis from proximal to distal stents. Right after the stent there is subtotal occlusion of the vessel. There is JATINDER I flow. Severe 85% stenosis, JATINDER: 1 flow. * LM has 0% stenosis. * Coronary angiography shows right dominance. PCI Status: Urgent PCI Indication: NSTE - ACS Interventional Findings * We the left main artery using XB 3.5 guide catheter. IV heparin was administered to maintain a nice ACT of 250 sec throughout the procedure. A 0.014 run-through guidewire was used to cross the lesions and ramus artery. We used a 2.5 x 15 mm semi-compliant balloon to perform serial dilations of in-stent restenosis and also subtotally occluded distal ramus artery. At the level of distal ramus stent, severe stenosis was still present after balloon angioplasty. We decided to put a 2.75 x 18 mm resolute Quinn stent there. For balloon angioplasty of proximal portion of ramus artery stent, we used a 3.0 x 12 mm NC balloon. At this time final angiogram was obtained. There was still some residual stenosis in the very distal segment of the artery that was left for medical management. However the rest of the vessel had JATINDER-3 flow. Good stent expansion was noted. Patient left the Obstetrics Tech in stable condition.. * Ramus: 85% stenosis treated with AB TREK 2.50X15 RX BALLOON, AGUSTO Elias RANULFO 2.75X18 NATALIIA, and AGUSTO GAMBINO EUPHORA RX [id number] BALLOON. 0% residual stenosis, JATINDER: 3 flow. Conclusions 1. Mild moderate disease of LAD and left circumflex. 2. There is severe coronary artery disease with one vessel disease. 3. Ramus was treated with two Balloon and Drug Eluting Stent. Recommendations * Transferred back to CSU. * Aspirin and Plavix for at least 1 year. * High intensity statin therapy. * Beta-juan and lisinopril. * Order echocardiogram. * Patient to follow with cardiology as outpatient. Interventional RX Recommendation: PCI w/o planned CABG Diagnostic RX Recommendation: PCI w/o planned CABG Anticoagulation: Heparin Pressures Phase:Rest AO : 179 / 108 ( 127 ) @ 1:52:00 PM 143 / 97 ( 118 ) @ 1:54:00 PM 146 / 97 ( 121 ) @ 1:56:00 PM 143 / 94 ( 118 ) @ 1:57:00 PM 144 / 82 ( 110 ) @ 2:11:00 PM 152 / 103 ( 127 ) @ 2:14:00 PM 162 / 111 ( 136 ) @ 2:17:00 PM 180 / 108 ( 138 ) @ 2:20:00 PM 117 / 60 ( 87 ) @ 2:22:00 PM 162 / 96 ( 126 ) @ 2:24:00 PM 143 / 99 ( 114 ) @ 2:28:00 PM 167 / 101 ( 129 ) @ 2:30:00 PM Clinical Evaluation EBL: 5mL-10mL Procedural Details Procedure Consent Obtained. Pre-Procedure Time Out. Identified patient by full name and date of as verbalized by the patient/guarantor. Does the consent match the physician's order: Yes. Accurate & Complete Informed Consent: Yes. Inpatient/Outpatient History & Physical on Chart: Yes. If H&P is completed, is and addenduem needed: N/A; If yes, is the addendum complete: N/A. Visualize and Verify Site with Patient/Guarantor: N/A. Relevant Radiology Images available: Yes. Pre-op teaching completed and patient verbalized understanding. The risks, benefits, and alternatives of sedation and/or procedure were discussed by physician. The patient agrees to continue. Procedure started. Correct patient, site and procedure confirmed by cath team. PERRLA. 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 Lungs clear x 5 lobes. A 18 gauge IV was started in the left forearm using aseptic technique. A 18 gauge IV was started in the left anticubital using aseptic technique. IV Fluids: 0.9% NaCl at KVO. 0 mL infused prior to biological lab technician. Oxygen started at 2liters/min via nasal canula. right groin was prepped with chloroprep then draped in the usual sterile fashion. right radial was prepped with chloroprep then draped in the usual sterile fashion. Physician notified. Baseline sample Acquired. HR: 91 BPM. Physician arrived. Physician scrubbed in. Immediate Pre-Procedure Time Out. Correct Patient: Yes; Correct Procedure: Yes; Correct Site: Yes; Correct Patient Position: Yes; Correct Supplies: Yes; Dried Flammable Prep: Yes; Blood Products Available: No;. Lidocaine 1% infiltrated to the right radial. Arterial access obtained. A 5 yi TIG catheter in over wire. Multiple views taken of left coronary artery. Equipment: 6F - Femoral. Cardiac Cath Pack. ACIST Manifold Kit Model BT 2000. Heparinized Saline (2 units/mL), 1000 mL bag. Catheter redirected to the RCA. Multiple views taken of right coronary artery. 6 yi XB 3 guide catheter was inserted over the wire. Tiffany Arias, COLIN was relieved by Tang Lauren as monitoring person. Inventory is TR 180cm Runthrough NS extra floppy 0.014 wire. Runthrough guidewire was advanced through the guide catheter to lesion in the Ramus. Inflation number : 1 A AB TREK 2.50X15 RX BALLOON was prepped and advanced across the Ramus , then inflated to 14 CHRISTOPHER for 0:25 seconds. Inflation number: 2 The AB TREK 2.50X15 RX BALLOON was reinflated across the Ramus, to 16 CHRISTOPHER for 0:13 seconds. Inflation number: 3 The AB TREK 2.50X15 RX BALLOON was reinflated across the Ramus, to 16 CHRISTOPHER for 0:08 seconds. Inflation number: 4 The AB TREK 2.50X15 RX BALLOON was reinflated across the Ramus, to 16 CHRISTOPHER for 0:09 seconds. Inflation number: 5 The AB TREK 2.50X15 RX BALLOON was reinflated across the Ramus, to 10 CHRISTOPHER for 0:21 seconds. Inflation number: 6 The AB TREK 2.50X15 RX BALLOON was reinflated across the Ramus, to 10 CHRISTOPHER for 0:08 seconds. Inflation number: 7 The AB TREK 2.50X15 RX BALLOON was reinflated across the Ramus, to 6 CHRISTOPHER for 0:12 seconds. Inflation number: 8 The AB TREK 2.50X15 RX BALLOON was reinflated across the Ramus, to 8 CHRISTOPHER for 0:12 seconds. Balloon out. Inflation Number : 9 A AGUSTO Elias RANULFO 2.75X18 NATALIIA -Lot Number# [id number] Exp date: 12/30/2021 was prepped and advanced across the Ramus. The stent was deployed at 14 CHRISTOPHER for 0:26 seconds. Stent balloon out over wire. Inflation number : 10 A AGUSTO GAMBINO EUPHORA RX [id number] BALLOON was prepped and advanced across the Ramus , then inflated to 14 CHRISTOPHER for 0:11 seconds. Balloon out. Wire out. Guide catheter out. Medication's Wasted: Nitro = 50 mg. Medication's Wasted: Heparin = 6000 units. Total IV fluids: 100 mL. Omnipaque 261mL. Physician scrubbed out. A TR Band was successful obtaining hemostatsis at the Right Radial artery insertion site. Complications: None. Estimated blood loss: 5mL-10mL. Procedure completed. Patient transferred by bed to 1st floor. [facility] Clinical Fraility Score: 3: Managing Well. Obstetrics Tech Indications: ACS <= 24 hours. Chest Pain Symptom Assessment: Typical Angina Symptoms. Cardiovascular Instability: N/A. Current diagnosis: NSTEMI. TR band placed. Hemostasis obtained. Vital chart was stopped. Access Site Site: Right Radial artery Sheath Size: 6 Fr Hemostasis Method: TR Band Hemostasis Success: Successful Procedure Medications Start: 6:49 PM Stop: 6:49 PM Medication: Nitrogylcerin Amount: 200 mcg Route: I.A. Start: 6:49 PM Stop: 6:49 PM Medication: Benadryl Amount: 25 mg Route: I.V. Start: 6:58 PM Stop: 6:58 PM Medication: Versed Amount: 1 mg Route: I.V. Start: 6:58 PM Stop: 6:58 PM Medication: Fentanyl Amount: 50 mcg Route: I.V. Start: 7:12 PM Stop: 7:12 PM Medication: Versed Amount: 1 mg Route: I.V. Start: 7:12 PM Stop: 7:12 PM Medication: Fentanyl Amount: 50 mcg Route: I.V. Start: 7:25 PM Stop: 7:25 PM Medication: Versed Amount: 1 mg Route: I.V. Start: 7:25 PM Stop: 7:25 PM Medication: Fentanyl Amount: 50 mcg Route: I.V. I, the attending physician, have reviewed and verified all procedure medications. Yes, all medications given per verbal order History/Risk Factors Hypertension: Yes Dyslipidemia: No Peripheral Arterial Disease (PAD): No Myocardial Infarction (TX): No Obesity: No Renal Disease: No Tobacco Use: Former Prior Interventions PCI: Yes CABG: No Valve Surgery: No Report Signatures Finalized by Glen Ramos MD on 04/22/2020 07:53 PM
--- NOTE | 2020-04-19 18:24 | W.PM.OPSUD ---
Surgery/Procedure H&P Update DATE OF PROCEDURE: April 19, 2020 DATE H&P PERFORMED: 04/19/20 H&P UPDATE INFORMATION: I have reviewed H&P completed within last 30 days, I have examined patient prior to procedure and No changes to prior documentation PREOP DIAGNOSIS: NSTEMI PRIMARY INDICATION FOR PROCEDURE: NSTEMI PLANNED PROCEDURE: Operation Date: 04/19/20 17:00 Proposed Procedures p Cardiac Catheterization(Left) - Glen Ramos M.D PATIENT REASSESSED PRIOR TO SEDATION, WITH NO CHANGE NOTED: Yes PHYSICAL EXAM: alert, oriented x 3 and clear to auscultation bilaterally AIRWAY EVAL/ANESTHESIA PLAN: normal airway, ASA III, Risks, benefits & alternatives of sedation and/or procedure discussed and Patient agrees to continue as planned
--- NOTE | 2020-04-19 18:27 | PC.NURSE ---
pt taken to photo lab manager.
--- NOTE | 2020-04-19 20:06 | PC.NURSE ---
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 Pulses palpable, no signs of bleeding or hematoma noted. Report called to Sully Burden RN. Patient resting in bed with eyes closed at this time, no complaints of pain, call light within reach. Continue care
[2020-04-19] MEDS: sodium chloride 0.9% 1,000 ML 30 ML IV (22:09)
--- NOTE | 2020-04-19 22:17 | PC.NURSE ---
Patient requested food after returning from process laboratory specialist procedure. Patient was given sandwich, pudding, and diet sprite because of being NPO before angiogram. Patient's TR band is still in place on right wrist, slowing letting air down. Patient is compliant with cares and staff, patient is alert and orientated just groggy from process laboratory specialist medications. Call light is within reach. Continue care.
--- NOTE | 2020-04-19 22:43 | PC.NURSE ---
TR band removed at 2238. Dressing applied, dry and intact. No s/s of bleeding or hematoma noted. All v/s stable. Call light within reach. continue care.
[2020-04-20] VITALS (9 sets, daily range): BP systolic 133–171; BP diastolic 73–97; PULSE 84–112; RESP 13–21; TEMP 36.2–37.3; O2SAT 91–97
--- NOTE | 2020-04-20 03:50 | PC.NURSE ---
Patient resting in room with eyes closed. Incision site dry and intact, no bleeding or hematoma present still. Patient is complaint with cares, denies any pain at this time, call light within reach, continue care.
[2020-04-20] MEDS: HYDROcodone-acetaminophen 5-325 mg Tablet 1 TAB PO (05:00)
[2020-04-20 05:30] LABS: Basophils % 0.4 %; Eosinophils % 0.6 %; Hematocrit 46.1 % (37.0-47.0); Hemoglobin 14.5 g/dL (11.5-15.3); Lymphocytes # 0.7 10^3/uL (0.8-4.8); Lymphocytes % 15.1 %; Mean Corpuscular HGB Conc 31.5 g/dL (30.0-36.0); Mean Corpuscular Hemoglobin 29.2 pg (28.0-34.0); Mean Corpuscular Volume 92.8 fL (81-99); Mean Platelet Volume 10.8 fL (7.4-10.4); Monocytes # 0.7 10^3/uL (0.2-0.9); Monocytes % 13.8 %; Neutrophils # 3.39 10^3/uL (1.8-7.7); Neutrophils % 69.9 %; Nucleated Red Blood Cells % 0 %; Platelet Count 173 10^3/cmm (130-400); Red Blood Count 4.97 10^6/uL (4.1-5.3); Red Cell Distribution Width 13.2 % (12.1-15.1); White Blood Count 4.9 10^3/uL (4.0-10.0)
[2020-04-20 05:57] LABS: Anion Gap 16.7 (5-19); Blood Urea Nitrogen 10 mg/dL (8-23); Calcium 10.6 mg/dL (8.5-10.5); Carbon Dioxide 26 mmol/L (22-29); Chloride 101 mmol/L (98-107); Glomerular Filtration Rate 99.4 mL/min (90-130); Glucose 113 mg/dL (65-115); Osmolality Calculated 290 mOsm/kg (285-295); Potassium 3.7 mmol/L (3.5-5.1); Sodium 140 mmol/L (136-145)
[2020-04-20 05:59] LABS: Chol HDL Ratio 3.13 mg/dL (0.0-4.40); Cholesterol 144 mg/dL (0-200); HDL Cholesterol 46 mg/dL (60-100); LDL Cholesterol Calculated 59 mg/dL (50-129); LDL HDL Ratio 1.28 RATIO (0.00-3.22); Triglycerides 197 mg/dL (0-150)
--- NOTE | 2020-04-20 09:35 | PM.DCS ---
Discharge Providers Date of Admission: 04/19/20 11:03 Date of Discharge: April 20, 2020 Attending Provider at Admission: Yolande Ruth DO Attending Provider at Discharge: Yolande Ruth DO Primary Care Provider: Jorge Styles Diagnoses at Discharge Discharge Diagnosis (1) Non-ST elevation IA (NSTEMI): Status: Acute (2) Hypertension: Status: Acute (3) Hypercholesterolemia: Status: Acute (4) CAD (coronary artery disease): Status: Chronic Problem details: last coronary angiogram 2017- non obstructive disease (5) Alzheimer disease: Status: Acute Reason for Visit Reason for Visit: STEMI/ TRANSFER FROM [place] [facility] Course Hospital Course: Patient was seen and evaluated in outside emergency department transferred to our facility for further evaluation and treatment due to concern for non-ST elevation IA. Cardiology was consulted and patient was taken for cardiac cath on 04/19/2020. Patient was noted to have rein-stent stenosis and stent placed by cardiology, Dr. Ramos. Patient did well following the procedure with no postoperative complications. She was awake and alert denied any chest pain or shortness of breath on date of discharge. Discussed with patient plan for discharge to home with close cardiology follow-up and lifting restrictions per cardiology, she verbalized understanding and agreed with plan. Physical Exam Const: COMMON NORMALS: patient oriented x3 and alert GENERAL APPEARANCE: cooperative ORIENTATION/CONSCIOUSNESS: Yes awake, Yes oriented to person, Yes oriented to place and Yes oriented to time HENMT: COMMON NORMALS: normocephalic and atraumatic HEAD & SCALP: normocephalic and atraumatic Eye: COMMON NORMALS: Equal, round and reactive pupils present PUPIL: Yes Equal, round and reactive pupils present Neck/C-Spine: COMMON NORMALS: supple GENERAL: Yes normal visual inspection Resp: COMMON NORMALS: normal respiratory effort and clear to auscultation bilaterally EFFORT & INSPECTION: Yes able to speak in complete sentences AUSCULTATION: clear to auscultation bilaterally, no rhonchi and no wheezes Cardio: COMMON NORMALS: regular rate, regular rhythm and No murmurs present (Cardio) RATE: regular rate RHYTHM: regular rhythm GI: COMMON NORMALS: Soft to palpation and non-tender INSPECTION: No abdominal distension AUSCULTATION: Yes normoactive bowel sounds PALPATION: Yes Soft to palpation Extremity: COMMON NORMALS: no clubbing, cyanosis or edema and no calf tenderness Neuro: COMMON NORMALS: patient oriented x3, CN's II-XII intact bilaterally, moves all extremities and no focal motor deficits SENSORIUM/ORIENTATION: Yes alert, Yes oriented to person, Yes oriented to place and Yes oriented to time SPEECH: speech normal Psych: COMMON NORMALS: mental status grossly normal and cooperative Skin: COMMON NORMALS: no rashes or lesions noted GENERAL SKIN EXAM: no rashes or lesions noted Discharge Data Data Completed and Pending: Completed Studies During Hospitalization Category Date Time Status CV echo complete* [id number] Routine Ultrasound 04/19/20 14:14 Completed Pending at discharge Category Date Time Status AUXILIARY ENGINEER request for service Routin e Exams 04/19/20 18:18 Taken Labs from last 24 hours 04/20/20 04/20/20 04/20/20 04:50 04:50 04:50 WBC 4.9 RBC 4.97 Hgb 14.5 Hct 46.1 MCV 92.8 MCH 29.2 MCHC 31.5 RDW 13.2 Plt Count 173 MPV 10.8 H Neut % (Auto) 69.9 Lymph % (Auto) 15.1 Coleman % (Auto) 13.8 Eos % (Auto) 0.6 Baso % (Auto) 0.4 Neut # (Auto) 3.39 Lymph # (Auto) 0.7 L Coleman # (Auto) 0.7 Eos # (Auto) 0.0 Baso # (Auto) 0.0 Nucleated RBC % (a uto) 0 Nucleated RBCs # 0.0 Sodium 140 Potassium 3.7 Chloride 101 Carbon Dioxide 26 Anion Gap 16.7 BUN 10 Creatinine 0.6 GFR Calculation 99.4 Glucose 113 Calculated Osmolal ity 290 Calcium 10.6 H Troponin T Gen 5 n g/L Triglycerides 197 H Cholesterol 144 LDL Cholesterol, C alc 59 HDL Cholesterol 46 L LDL/HDL Ratio 1.28 Cholesterol/HDL Ra leno 3.13 TSH 04/19/20 04/19/20 11:32 11:32 WBC RBC Hgb Hct MCV MCH MCHC RDW Plt Count MPV Neut % (Auto) Lymph % (Auto) Coleman % (Auto) Eos % (Auto) Baso % (Auto) Neut # (Auto) Lymph # (Auto) Coleman # (Auto) Eos # (Auto) Baso # (Auto) Nucleated RBC % (a uto) Nucleated RBCs # Sodium Potassium Chloride Carbon Dioxide Anion Gap BUN Creatinine GFR Calculation Glucose Calculated Osmolal ity Calcium Troponin T Gen 5 n g/L 766 H* Triglycerides Cholesterol LDL Cholesterol, C alc HDL Cholesterol LDL/HDL Ratio Cholesterol/HDL Ra leno TSH 0.72 Vitals: Last Vital Signs Temp 98.0 F 04/20/20 08:00 Pulse 92 04/20/20 08:00 Resp 18 04/20/20 08:00 BP 133/81 04/20/20 08:00 Pulse Ox 91 04/20/20 08:00 Discharge Plan Discharge Patient Disposition: Home Condition: Stable Prescriptions: New clopidogrel 75 mg Tablet 75 mg PO DAILY 30 Days Qty: 30 RF: 0 Continued simethicone [Gas-X Extra Strength] 125 mg tablet,chewable 125 mg PO BID PRN (Reason: FLATULANCE) RF: 0 aspirin [Aspir-81] 81 mg tablet,delayed release (DR/EC) 81 mg PO DAILY RF: 0 buspirone 10 mg tablet 10 mg PO BID RF: 0 cetirizine 10 mg tablet 5 mg PO DAILY RF: 0 donepezil 10 mg tablet 10 mg PO DAILY RF: 0 lisinopril 40 mg tablet 40 mg PO DAILY RF: 0 omeprazole 20 mg capsule,delayed release(DR/EC) 20 mg PO DAILY RF: 0 pramipexole 0.125 mg tablet 0.125 mg PO DAILY RF: 0 atorvastatin 80 mg tablet 80 mg PO DAILY RF: 0 memantine [Namenda] 10 mg tablet 10 mg PO BID Qty: 180 RF: 1 metoprolol segura-hydrochlorothiaz 50-12.5 mg tablet extended release 24 hr 0.5 tab PO BID RF: 0 furosemide [Lasix] 20 mg tablet 20 mg PO DAILY RF: 0 oxycodone-acetaminophen [Percocet] 10-325 mg tablet 1 tab PO TID PRN (Reason: pain) 30 Days Qty: 90 RF: 0 tramadol 50 mg tablet 100 mg PO TID PRN (Reason: pain) 30 Days Qty: 180 RF: 1 baclofen 20 mg tablet 20 mg PO TID PRN (Reason: spasms) 90 Days Qty: 270 RF: 0 isosorbide mononitrate 30 mg Tablet Extended Release 24 Hr 30 mg PO DAILY RF: 0 Held amlodipine 10 mg tablet 10 mg PO DAILY RF: 0 Hold Instructions: Resume on 04/27/20. Discharge Orders: Discharge Order (Routine); Ordered 04/20/20 Ordered By: Yolande Ruth Referrals: Jorge Styles [Primary Care Provider] - 4-7 days Glen Ramos M.D [Physician] - 1 week Discharge Diet: Cardiac Discharge Activity: Increase activity as tolerated and Limit activity as instructed Activity Restrictions/Additional Instructions: Diagnosed with heart attack and taken to cardiac Instructional Design Technologist for stent placement. Cardiology, Dr. Ramos was consulted. You will need close cardiology follow-up in 1 week, follow-up with your primary care provider in 5 to 7 days Continue to follow lifting restrictions as recommended by cardiology Continue on aspirin, Plavix, atorvastatin, metoprolol, lisinopril Call your physician or present to the ED for any acute illness or concern Discharge Attestations Time Spent in Discharge Care*: greater than 30 min Specific Discharge Activities: Specific discharge activities: educating patient, educating and/or supporting family/caregiver, discussing with home health care case manager/social workers/dc planners and documenting/other paperwork Quality Metrics Clinical Quality Measures During this hospital stay, did patient experience: AMI Clinical Trial Participant: No Contraindication to aspirin (AMI): Aspirin given Contraindication to statin: Statin prescribed Contraindication to PCI: PCI performed Coding Level of Care Code Acute Heating Element Builder for natalie Fwd Diagnoses Non-ST elevation IA (NSTEMI) I21.4 Hypertension I10 Hypercholesterolemia E78.00 CAD (coronary artery disease) I25.10 Alzheimer disease G30.9; F02.80
[2020-04-20] MEDS: aspirin 81 mg EC Tablet PO (10:11)
[2020-04-20] MEDS: lisinopril 20 mg Tablet 40 MG PO (10:11)
--- NOTE | 2020-04-20 10:11 | PM.PN ---
Subjective Subjective: Interval history: She feels well and is eager to go home. No chest pain Medications: Reviewed: Yes Medication Review Details: Current Medications Acetaminophen (Tylenol) 650 mg PO Q6H PRN PRN Reason: Mild/Mod Pain Or Temp >/= 101 Acetaminophen (Tylenol) 650 mg PO Q6H PRN PRN Reason: MILD PAIN Hydrocodone Bitart/Acetaminophen ([place] 5-325 Mg) 1 tab PO Q4H PRN PRN Reason: MODERATE TO SEVERE PAIN Last Admin: 04/20/20 05:00 Dose: 1 tab Documented by: Al Hydrox/Mg Hydrox/Simethicone (Maalox) 30 ml PO Q15M PRN PRN Reason: INDIGESTION Alprazolam (Xanax) 0.25 mg PO TID PRN PRN Reason: ANXIETY Aspirin (Aspirin Ec) 81 mg PO DAILY [facility] Last Admin: 04/20/20 10:11 Dose: 81 mg Documented by: Atorvastatin Calcium (Lipitor) 80 mg PO DAILY [facility] Last Admin: 04/20/20 10:12 Dose: 80 mg Documented by: Atropine Sulfate (Atropine) 0.5 mg IVP PRN PRN PRN Reason: Symptomatic bradycardia Baclofen (Lioresal) 20 mg PO TID PRN PRN Reason: spasms Buspirone HCl (Buspar) 10 mg PO BID [facility] Clopidogrel Bisulfate (Plavix) 75 mg PO DAILY [facility] Last Admin: 04/20/20 10:14 Dose: 75 mg Documented by: Donepezil HCl (Aricept) 10 mg PO DAILY [facility] Last Admin: 04/20/20 10:13 Dose: 10 mg Documented by: Fentanyl (Sublimaze) 50 mcg IVP PRN PRN PRN Reason: Prior to sheath removal Furosemide (Lasix) 20 mg PO DAILY [facility] Last Admin: 04/20/20 10:15 Dose: 20 mg Documented by: Sodium Chloride (Sodium Chloride 0.9%) 1,000 mls @ 30 mls/hr IV .Q24H [facility] Last Admin: 04/19/20 22:09 Dose: 30 mls/hr Documented by: Isosorbide Mononitrate (Imdur) 30 mg PO DAILY [facility] Last Admin: 04/20/20 10:15 Dose: 30 mg Documented by: Lisinopril (Prinivil) 40 mg PO DAILY [facility] Last Admin: 04/20/20 10:11 Dose: 40 mg Documented by: Magnesium Hydroxide (Milk Of Magnesia) 30 ml PO DAILY PRN PRN Reason: CONSTIPATION Memantine (Namenda) 10 mg PO BID [facility] Metoprolol Tartrate (Lopressor) 25 mg PO BID [facility] Morphine Sulfate (Morphine) 2 mg IVP Q4H PRN PRN Reason: SEVERE PAIN Naloxone HCl (Narcan) 0.1 mg IVP Q2M PRN PRN Reason: OPIATERV Naloxone HCl (Narcan) 0.1 mg IVP Q2M PRN PRN Reason: RESPIRATORY RATE < 8/MIN Nitroglycerin (Nitrostat) 0.4 mg SUBLINGUAL Q5M PRN PRN Reason: CHEST PAIN Ondansetron HCl (Zofran) 4 mg IVP Q6H PRN PRN Reason: NAUSEA AND VOMITING Pantoprazole Sodium (Protonix) 40 mg PO DAILY [facility] Pramipexole Dihydrochloride (Mirapex) 0.125 mg PO DAILY [facility] Temazepam (Restoril) 15 mg PO BEDTIME PRN PRN Reason: INSOMNIA Tramadol HCl (Ultram) 100 mg PO TID PRN PRN Reason: pain Vitals/I&O/Wt Last Vital Signs Temp 98.0 F 04/20/20 08:00 Pulse 92 04/20/20 08:00 Resp 18 04/20/20 08:00 BP 133/81 04/20/20 08:00 Pulse Ox 91 04/20/20 08:00 04/19/20 04/20/20 04/20/20 22:59 06:59 14:59 Intake Total 999.358 / 999.358 200 / 1199.358 150 / 150 Output Total 900 / 900 Balance 99.358 / 99.358 200 / 299.358 150 / 150 Weight last 48 hrs Weight 207 lb 8 oz Weight 213 lb 9 oz Weight 200 lb Physical Exam Const: COMMON NORMALS: no acute distress, patient oriented x3 and alert GENERAL APPEARANCE: cooperative, comfortable, well kempt and well hydrated HENMT: COMMON NORMALS: normocephalic, atraumatic, hearing grossly normal bilaterally and external ears normal HEAD & SCALP: normocephalic and atraumatic FACE & SINUS: normal facial exam; no edema EXTERNAL EAR: Yes external ears normal Eye: COMMON NORMALS: Equal, round and reactive pupils present, EOMs intact bilaterally, conjunctivae normal and no scleral icterus GENERAL EYE: appearance normal, both eyes and all related structures ALIGNMENT: Yes alignment normal CONJUNCTIVA: Yes conjunctivae normal SCLERA: sclerae normal PUPIL: Yes Equal, round and reactive pupils present Neck/C-Spine: COMMON NORMALS: no lymphadenopathy, supple and no JVD GENERAL: Yes normal visual inspection, Yes trachea midline and No Mass present (neck) CAROTIDS: Yes normal carotid upstroke CERVICAL SPINE: Yes cervical ROM normal Chest: COMMONS NORMALS: normal inspection of the chest and normal palpation of entire chest wall CHEST: Yes Symmetrical chest wall rise, No mass, No tenderness, No Surgical scars present (Chest) and No rash Resp: COMMON NORMALS: clear to auscultation bilaterally EFFORT & INSPECTION: Yes able to speak in complete sentences and No respiratory distress AUSCULTATION: clear to auscultation bilaterally, no crackles, no rales, no rhonchi, no wheezes and vesicular breath sounds Cardio: COMMON NORMALS: no JVD, regular rate, regular rhythm, S1 normal heart sound present, S2 normal heart sound present and Peripheral pulses 2+ throughout PALPATION: normal PMI RATE: regular rate RHYTHM: regular rhythm HEART SOUNDS: S1 normal heart sound present, S2 normal heart sound present, no click, no gallops and no murmurs BRUITS: no carotid bruits PERIPHERAL PULSES: Peripheral pulses 2+ throughout, radial pulses present, posterior tibial pulses present and dorsalis pedis present GI: COMMON NORMALS: Soft to palpation AUSCULTATION: Yes normoactive bowel sounds PALPATION: Yes Soft to palpation, No Tenderness to palpation present (GI), No Guarding due to palpation present (GI), No Rigid due to palpation and No Ascites present Extremity: GENERAL: No calf tenderness, No cyanosis, Yes edema and No pallor Neuro: COMMON NORMALS: patient oriented x3 and gait normal SENSORIUM/ORIENTATION: Yes alert Psych: COMMON NORMALS: Normal thought process present and speech normal APPEARANCE: Yes well kempt SPEECH: Yes normal speech MOOD & AFFECT: Yes euthymic mood THOUGHT PROCESS: Normal thought process present THOUGHT CONTENT: Yes Normal thought content present Skin: HAIR: normal NAILS: normal and no clubbing Data : 04/20/20 04:50 04/20/20 04:50 A&P Assessment and plan (1) Non-ST elevation ND (NSTEMI): Patient has prior history of CAD with stenting several years back in unknown vessel. Having typical anginal chest discomfort with significantly elevated troponin. EKG with sinus rhythm borderline left axis deviation and low QRS voltage in precordial leads. -Patient received aspirin 324mg. Weight-based Lovenox and Plavix 600 mg p.o. x1. -continue with nitroglycerin drip. Patient had LHC yesterday and was found to have ramus in stent restenosis with subtotal occlusion in distal small segment. Balloon angioplasty was done for ISR in ramus and distal ramus was stented with NATALIIA. Small diagonal with stenosis to be managed medically. -continue DAPT, metoprolol, statin. -f/u in [facility] in 1 week and with me in 4 weeks. Status: Acute (2) Hypertension: Blood pressure elevated. Continue to closely monitor with nitroglycerin drip. -Home medications restarted Status: Acute (3) Hypercholesterolemia: Status: Acute (4) CAD (coronary artery disease): There is documentation of coronary angiogram in 2018 with no obstructive disease. I am unable to actual report of that. -Last stress test at [facility] was positive for anterolateral ischemia. Status: Chronic (5) Alzheimer disease: Status: Acute Attestations Medical Necessity Statement*: Stable to be discharged today. Coding Level of Care Code Acute [employer] for [employer] [facility] Diagnoses Non-ST elevation ND (NSTEMI) I21.4 Hypertension I10 Hypercholesterolemia E78.00 CAD (coronary artery disease) I25.10 Alzheimer disease G30.9; F02.80
[2020-04-20] MEDS: atorvastatin 40 mg Tablet 80 MG PO (10:12)
[2020-04-20] MEDS: donepezil 5 MG Tablet 10 MG PO (10:13)
[2020-04-20] MEDS: clopidogrel 75 mg Tablet PO (10:14)
[2020-04-20] MEDS: FUROsemide 20 mg Tablet PO (10:15)
[2020-04-20] MEDS: isosorbide mononitrate ER 30 mg Tablet PO (10:15)
[2020-04-20] MEDS: pramipexole 0.25 mg Tablet 0.125 MG PO (10:26)
[2020-04-20] MEDS: pantoprazole DR 40 mg Tablet PO (10:27)
== END 2020-04-20 15:00 | disposition home or self-care (01) | DRG 246 ==
LOC: ER 11:25 → CSU 11:36
PROVIDERS: Internal Medicine; Admitting Provider Family Medicine; Emergency Provider Family Medicine; PCP Family Medicine; Visit Provider Family Medicine
PROC: 027034Z Dilation of Coronary Artery, One Artery with Drug-eluting Intraluminal Device, Percutaneous Approach (ICD-10-PCS; principal; 2020-04-19 17:00)
PROC: 027034Z Dilation of Coronary Artery, One Artery with Drug-eluting Intraluminal Device, Percutaneous Approach (ICD-10-PCS; 2020-04-19 17:00)
DX: T82.855A Stenosis of coronary artery stent, initial encounter (principal); I21.4 Non-ST elevation (NSTEMI) myocardial infarction; I50.30 Unspecified diastolic (congestive) heart failure; Y65.8 Other specified misadventures during surgical and medical care; Y92.009 Unspecified place in unspecified non-institutional (private) residence as the place of occurrence of the external cause; I25.10 Atherosclerotic heart disease of native coronary artery without angina pectoris; F02.80 Dementia in other diseases classified elsewhere, unspecified severity, without behavioral disturbance, psychotic disturbance, mood disturbance, and anxiety; E78.00 Pure hypercholesterolemia, unspecified; Z79.82 Long term (current) use of aspirin; G30.9 Alzheimer's disease, unspecified; E78.5 Hyperlipidemia, unspecified; Z79.891 Long term (current) use of opiate analgesic; K21.9 Gastro-esophageal reflux disease without esophagitis; Z85.828 Personal history of other malignant neoplasm of skin; I25.82 Chronic total occlusion of coronary artery; Z87.891 Personal history of nicotine dependence; E66.9 Obesity, unspecified; Z68.35 Body mass index [BMI] 35.0-35.9, adult; I11.0 Hypertensive heart disease with heart failure
CPT/HCPCS: 12345; 36415; 80048; 80061; 84443; 84484; 85025; 93005; 93306; 93454; 96372; 96375; 99283; C1725; C1769; C1874; C1887; C1894; C9600; J1200; J1644; J1650; J2250; J2270; J2405; J3010; J3490; J7030; Q9967

== ENCOUNTER 2020-04-22 18:45 | Inpatient (IN) | payer MEDICARE, SELFPAY ==
[2020-04-22] VITALS (8 sets, daily range): BP systolic 104–153; BP diastolic 61–83; PULSE 84–100; RESP 14–18; TEMP 36.6–37; O2SAT 94–99
--- NOTE | 2020-04-22 18:51 | ECG_ITS ---
[facility] Test Date: 2020-04-22 Pat Name: Melvi Jaeger Department: Room: Gender: Female Scale Expert: : 1950 Requested By: Jonathon Schroeder Order Number: [id number] Nile MD: Axel Gibson M.D. Measurements Intervals [place] Rate: 96 P: 57 OK: 153 QRS: -31 QRSD: 86 T: 42 QT: 360 QTc: 455 Interpretive Statements SINUS RHYTHM MARKED LEFT AXIS DEVIATION [QRS AXIS < -30] PATTERN CONSISTENT WITH PULMONARY DISEASE Compared to ECG 04/19/2020 12:58:07 No significant changes Electronically Signed On 04-23-2020 21:36:19 CDT by Axel Gibson M.D. [email or web address]
--- NOTE | 2020-04-22 18:51 | XRR_ITS ---
PROCEDURE INFORMATION: Exam: XR Chest, 1 View Exam date and time: 04/22/2020 6:53 PM Age: 70 years old Clinical indication: Chest pain; Type not specified; Prior surgery; Surgery date: 3-7 days post-operative; Surgery type: 6th stent placed approx 1 week ago; Additional info: Cp TECHNIQUE: Imaging protocol: XR of the chest Views: 1 view. COMPARISON: No relevant prior studies available. FINDINGS: Lungs: Minimal dependent atelectasis left lung base. Pleural space: Unremarkable. No pleural effusion. No pneumothorax. Heart/Mediastinum: Cardiac structures and configuration with arteriosclerosis. Bones/joints: Unremarkable for age. Other findings: Heavy body habitus. XR/XR chest 1V portable [id number] IMPRESSION: Minimal dependent atelectasis left lung base.
--- NOTE | 2020-04-22 18:58 | W.ED.CHESTPA ---
HPI - Chest Pain General: Chief Complaint: Chest Pain Stated Complaint: CHEST PAIN; STENTS LAST THURSDAY Time Seen by Provider: 04/22/20 18:46 History of Present Illness: HPI narrative: 70-year-old female presents with chest discomfort. She had presented 3 days ago with chest discomfort, and ended up having balloon angioplasty with stent placement to her ramus where there was an in-stent restenosis. She had done well and went home. She says pain started around 5:00 this evening. She was lying down in her home. She has had some shortness of breath. None currently. Pain radiates down left greater than right arm. Pain is improved after nitroglycerin sublingual and paste. She has had aspirin. She still has some discomfort on arrival. Pertinent past history: coronary artery disease, prior [place] and [employer] Onset (ago): hour(s) Timing of current episode: constant Prior episodes: Yes Onset: during rest Pain location: substernal and left chest Pain radiation: right arm and left arm Severity: moderate Quality: tightness and aching Relieving factors: nitroglycerin Exacerbating factors: nothing Context: other Associated symptoms: Reports dyspnea and nausea; Deny fever(s), leg edema, palpitations or vomiting Review of Systems Const: Denies: fever(s) Eyes: Denies: change in vision ENMT: Denies: odynophagia, swelling of lips/tongue or sinus pain Card: Reports: chest pain, swelling of feet/ankles and dyspnea on exertion; Denies: palpitations or irregular heart rhythm Resp: Reports: dyspnea GI: Reports: nausea; Denies: vomiting : Denies: dysuria or hematuria Musc: Denies: neck pain or joint warmth Skin/Breast: Denies: rash or erythema Neuro: Denies: headache(s), dizziness or vertigo Psych: Denies: anxiety PFSH ED PFSH: Medical History (Updated 04/22/20 @ 20:53 by Jonathon Bolanos DO) CAD (coronary artery disease) Diastolic congestive heart failure Encounter for long-term use of opiate analgesic History of myocardial infarction Hx of gastroesophageal reflux (GERD) Hx of skin cancer, basal cell Hypercholesterolemia Hypertension Intervertebral disc disorder with radiculopathy of lumbosacral region Opioid contract exists 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 region Surgical History History of hysterectomy for cancer Hx of cholecystectomy Stented coronary artery Family History Father CAD (coronary artery disease) Hypertension Stroke Mother Hypertension Social History Smoking and tobacco status: former smoker Second hand smoke exposure: No Alcohol intake: never Household members: significant other Marital status: / Current occupational status: retired and disabled History of recent travel: No Physical Exam Const: GENERAL APPEARANCE: well developed and anxious ORIENTATION/CONSCIOUSNESS: Yes oriented to person and Yes oriented to place HENMT: COMMON NORMALS: normocephalic, external ears normal and Normal external nose present HEAD & SCALP: normocephalic; no scalp tenderness FACE & SINUS: normal facial exam NOSE: Normal external nose present and No nasal discharge present EXTERNAL EAR: Yes external ears normal Eye: COMMON NORMALS: Equal, round and reactive pupils present, EOMs intact bilaterally and conjunctivae normal EYELID: eyelids normal CONJUNCTIVA: Yes conjunctivae normal PUPIL: Yes Equal, round and reactive pupils present Neck/C-Spine: GENERAL: No tracheal deviation Chest: COMMONS NORMALS: normal inspection of the chest CHEST: No tenderness Resp: COMMON NORMALS: clear to auscultation bilaterally EFFORT & INSPECTION: No tachypneic, No respiratory distress, No retractions, No uses accessory muscles and No tracheal deviation AUSCULTATION: clear to auscultation bilaterally, no rhonchi, no wheezes and lung sounds not diminished Cardio: COMMON NORMALS: regular rate and regular rhythm RATE: regular rate RHYTHM: regular rhythm HEART SOUNDS: no murmurs PERIPHERAL PULSES: radial pulses present GI: INSPECTION: No abdominal distension AUSCULTATION: No Hyperactive bowel sounds present and No Hypoactive bowel sounds present PALPATION: No Guarding due to palpation present (GI) and No Rigid due to palpation PERCUSSION: no dullness to percussion and no tympanic to percussion Neuro: SENSORIUM/ORIENTATION: Yes oriented to person and Yes oriented to place Psych: COMMON NORMALS: mental status grossly normal Course Consultations: Consultation #1: blue Vital Signs: Vital signs: Vital Signs Temperature 98.6 F 04/22/20 18:47 Pulse Rate 100 04/22/20 19:34 Respiratory Rate 16 04/22/20 19:35 Blood Pressure 132/78 04/22/20 19:34 Pulse Oximetry 94 04/22/20 19:35 MDM - Chest Pain MDM Narrative: Medical decision making narrative: 70-year-old female with left discomfort 3 days after angioplasty and stenting of in-stent stenosis of her ramus artery. Her troponin is 1556, but was 766 before her cath. She has no acute ST changes on EKG. She has a sinus rhythm with a rate of 90 and a left axis. As she has developed chest pain soon after her stenting, she will be observed. Lab Data: Labs: Lab Results 04/22/20 04/22/20 04/22/20 Range/Units 18:55 18:55 18:55 WBC 4.6 (4.0-10.0) 10^3/ uL RBC 4.54 (4.1-5.3) 10^6/u L Hgb 13.2 (11.5-15.3) g/dL Hct 41.9 (37.0-47.0) % MCV 92.3 (81-99) fL MCH 29.1 (28.0-34.0) pg MCHC 31.5 (30.0-36.0) g/dL RDW 13.3 (12.1-15.1) % Plt Count 183 (130-400) 10^3/c mm MPV 11.3 H (7.4-10.4) fL Neut % (Auto) 41.5 % Lymph % (Auto) 37.7 % [place] % (Auto) 15.9 % Eos % (Auto) 4.1 % Baso % (Auto) 0.4 % Neut # (Auto) 1.90 (1.8-7.7) 10^3/u L Lymph # (Auto) 1.7 (0.8-4.8) 10^3/u L [place] # (Auto) 0.7 (0.2-0.9) 10^3/u L Eos # (Auto) 0.2 (0.0-0.8) 10^3/u L Baso # (Auto) 0.0 (0.0-0.1) 10^3/u L Nucleated RBC % (a uto) 0 % Nucleated RBCs # 0.0 /100WBC PT 12.20 (12.1-14.9) SECO NDS INR 0.88 (0.8-1.2) Sodium 138 (136-145) mmol/L Potassium 4.7 (3.5-5.1) mmol/L Chloride 99 (98-107) mmol/L Carbon Dioxide 27 (22-29) mmol/L Anion Gap 16.7 (5-19) BUN 24 H (8-23) mg/dL Creatinine 0.9 (0.5-0.9) mg/dL GFR Calculation 62.3 L (90-130) mL/min Glucose 94 (65-115) mg/dL Calculated Osmolal ity 290 (285-295) mOsm/k g Calcium 10.4 (8.5-10.5) mg/dL Total Bilirubin 0.3 (0.15-1.2) mg/dL AST 34 H (0-32) U/L ALT 26 (0-33) U/L Alkaline Phosphata se 96 (35-105) IU/L Creatine Kinase 210 H (26-192) U/L Troponin T Baselin e (0-10) ng/L NT-Pro-B Natriuret Pep 778 H (0-125) pg/mL Total Protein 6.9 (6.6-8.7) g/dL Albumin 4.5 (3.5-5.2) g/dL Globulin 2.4 (1.3-4.6) g/dL 10/18/20 Range/Units 18:55 WBC (4.0-10.0) 10^3/ uL RBC (4.1-5.3) 10^6/u L Hgb (11.5-15.3) g/dL Hct (37.0-47.0) % MCV (81-99) fL MCH (28.0-34.0) pg MCHC (30.0-36.0) g/dL RDW (12.1-15.1) % Plt Count (130-400) 10^3/c mm MPV (7.4-10.4) fL Neut % (Auto) % Lymph % (Auto) % [place] % (Auto) % Eos % (Auto) % Baso % (Auto) % Neut # (Auto) (1.8-7.7) 10^3/u L Lymph # (Auto) (0.8-4.8) 10^3/u L [place] # (Auto) (0.2-0.9) 10^3/u L Eos # (Auto) (0.0-0.8) 10^3/u L Baso # (Auto) (0.0-0.1) 10^3/u L Nucleated RBC % (a uto) % Nucleated RBCs # /100WBC PT (12.1-14.9) SECO NDS INR (0.8-1.2) Sodium (136-145) mmol/L Potassium (3.5-5.1) mmol/L Chloride (98-107) mmol/L Carbon Dioxide (22-29) mmol/L Anion Gap (5-19) BUN (8-23) mg/dL Creatinine (0.5-0.9) mg/dL GFR Calculation (90-130) mL/min Glucose (65-115) mg/dL Calculated Osmolal ity (285-295) mOsm/k g Calcium (8.5-10.5) mg/dL Total Bilirubin (0.15-1.2) mg/dL AST (0-32) U/L ALT (0-33) U/L Alkaline Phosphata se (35-105) IU/L Creatine Kinase (26-192) U/L Troponin T Baselin e 1556 H* (0-10) ng/L NT-Pro-B Natriuret Pep (0-125) pg/mL Total Protein (6.6-8.7) g/dL Albumin (3.5-5.2) g/dL Globulin (1.3-4.6) g/dL Discharge Plan Discharge Patient Disposition: Placed in Observation Clinical Impression: Chest pain Condition: Stable Referrals: Jorge Styles [Primary Care Provider] - Coding Level of Care Code 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
[2020-04-22 19:04] LABS: Basophils % 0.4 %; Eosinophils # 0.2 10^3/uL (0.0-0.8); Eosinophils % 4.1 %; Hematocrit 41.9 % (37.0-47.0); Hemoglobin 13.2 g/dL (11.5-15.3); Lymphocytes # 1.7 10^3/uL (0.8-4.8); Lymphocytes % 37.7 %; Mean Corpuscular HGB Conc 31.5 g/dL (30.0-36.0); Mean Corpuscular Hemoglobin 29.1 pg (28.0-34.0); Mean Corpuscular Volume 92.3 fL (81-99); Mean Platelet Volume 11.3 fL (7.4-10.4); Monocytes # 0.7 10^3/uL (0.2-0.9); Monocytes % 15.9 %; Neutrophils % 41.5 %; Nucleated Red Blood Cells % 0 %; Platelet Count 183 10^3/cmm (130-400); Red Blood Count 4.54 10^6/uL (4.1-5.3); Red Cell Distribution Width 13.3 % (12.1-15.1); White Blood Count 4.6 10^3/uL (4.0-10.0)
[2020-04-22 19:26] LABS: INR 0.88 (0.8-1.2)
[2020-04-22] MEDS: morphine 4 mg/mL SDV 1 mL IVP (19:35)
[2020-04-22 19:36] LABS: Troponin(5th) Baseline 1556 ng/L (0-10)
[2020-04-22] MEDS: ondansetron 2 mg/ML SDV 2 mL 4 MG IVP (19:36)
--- NOTE | 2020-04-22 19:37 | PC.NURSE ---
Lab called critical troponin of 155, notified DR. Bolanos. No orders at this time.
[2020-04-22 19:41] LABS: Alanine Aminotransferase 26 U/L (0-33); Albumin Level 4.5 g/dL (3.5-5.2); Alkaline Phosphatase 96 IU/L (35-105); Anion Gap 16.7 (5-19); Aspartate Amino Transferase 34 U/L (0-32); Blood Urea Nitrogen 24 mg/dL (8-23); Calcium 10.4 mg/dL (8.5-10.5); Carbon Dioxide 27 mmol/L (22-29); Chloride 99 mmol/L (98-107); Creatine Phosphokinase 210 U/L (26-192); Globulin 2.4 g/dL (1.3-4.6); Glomerular Filtration Rate 62.3 mL/min (90-130); Glucose 94 mg/dL (65-115); NT Pro B Type Natriuretic Pept 778 pg/mL (0-125); Osmolality Calculated 290 mOsm/kg (285-295); Potassium 4.7 mmol/L (3.5-5.1); Sodium 138 mmol/L (136-145); Total Bilirubin 0.3 mg/dL (0.15-1.2); Total Protein 6.9 g/dL (6.6-8.7)
--- NOTE | 2020-04-22 20:37 | PM.HP ---
Providers/Chief Complaint Primary Care Provider: Jorge Styles Chief Complaint: CHEST PAIN; STENTS LAST THURSDAY History of Present Illness Melvi Jaeger is a 70 year old female who has established coronary artery disease, underwent cardiac catheterization on Thursday, had in-stent restenosis of distal rami status post balloon angioplasty and stent placement coming in today for worsening chest pain. Patient is stating that since her discharge from the hospital she has only managed to do laundry at home and cleared some leaves off her porch. She was resting in her couch when her chest pain started around evening, she is describing this pain similar to previous one, it was radiating towards her both arms and back, she experienced nausea but without any vomiting or diaphoresis. Her chest pain lasted for about an hour, got better after getting morphine 4 mg in the ER. Diagnostics in the ER revealed normal EKG without ischemic or infarctive changes, troponin 1600, at the time my evaluation chest pain 08/15, hemodynamically stable, I have discussed her findings with Dr. Ramos as well. Review of Systems Const: Reports: body aches and fatigue; Denies: fever(s) or chills Eyes: Denies: change in vision ENMT: Denies: throat pain Card: Reports: chest pain and swelling of feet/ankles; Denies: dyspnea on exertion or orthopnea Resp: Denies: dyspnea GI: Reports: nausea; Denies: abdominal pain or vomiting : Denies: flank pain Musc: Denies: neck pain Skin/Breast: Denies: rash Neuro: Denies: headache(s) Psych: Denies: anxiety Endo: Denies: polyuria [place]/Lymph: Denies: easy bruising All/Imm: Denies: urticaria Medications/Allergies Home Medications Medication Instructions Recorded Confirmed Last Taken Type amlodipine 10 mg tablet 10 mg PO DAILY 08/09/19 04/19/20 04/18/20 History aspirin 81 mg tablet,delayed 81 mg PO DAILY 08/09/19 04/19/20 04/18/20 History release atorvastatin 80 mg tablet 80 mg PO DAILY 08/09/19 04/19/20 04/18/20 History buspirone 10 mg tablet 10 mg PO BID 08/09/19 04/19/20 04/18/20 History cetirizine 10 mg tablet 5 mg PO DAILY 08/09/19 04/19/20 04/18/20 History donepezil 10 mg tablet 10 mg PO DAILY 08/09/19 04/19/20 04/18/20 History lisinopril 40 mg tablet 40 mg PO DAILY 08/09/19 04/19/20 04/18/20 History memantine 10 mg tablet 10 mg PO BID #180 tab 08/09/19 04/19/20 04/18/20 Rx omeprazole 20 mg capsule,delayed 20 mg PO DAILY 08/09/19 04/19/20 04/18/20 History release pramipexole 0.125 mg tablet 0.125 mg PO DAILY 08/09/19 04/19/20 04/18/20 History simethicone 125 mg chewable tablet 125 mg PO BID PRN tab 08/09/19 04/19/20 Unknown History metoprolol succ 50 0.5 tab PO BID 12/13/19 04/19/20 04/18/20 History mg-hydrochlorothiazide 12.5 mg tablet,ext.rel 24 hr furosemide 20 mg tablet 20 mg PO DAILY 01/16/20 04/19/20 04/18/20 History baclofen 20 mg tablet 20 mg PO TID PRN 90 Days #270 tab 04/12/20 04/19/20 04/18/20 Rx oxycodone-acetaminophen 10 mg-325 1 tab PO TID PRN 30 Days #90 tab 04/12/20 04/19/20 04/18/20 Rx mg tablet tramadol 50 mg tablet 100 mg PO TID PRN 30 Days #180 tab 04/12/20 04/19/20 04/18/20 Rx isosorbide mononitrate 30 mg PO DAILY 04/19/20 04/19/20 04/18/20 History clopidogrel 75 mg PO DAILY 30 Days #30 tab 04/20/20 Unknown Rx Allergies Allergy/AdvReac Type Severity Reaction Status Date / Time Penicillins AdvReac Unknown hives Verified 04/19/20 10:34 Sulfa (Sulfonamide AdvReac Unknown hives Verified 04/19/20 10:34 Antibiotics) PFSH Acute PFSH: Medical History CAD (coronary artery disease) Diastolic congestive heart failure Encounter for long-term use of opiate analgesic History of myocardial infarction Hx of gastroesophageal reflux (GERD) Hx of skin cancer, basal cell Hypercholesterolemia Hypertension Intervertebral disc disorder with radiculopathy of lumbosacral region Opioid contract exists 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 region Surgical History History of hysterectomy for cancer Hx of cholecystectomy Stented coronary artery Family History Father CAD (coronary artery disease) Hypertension Stroke Mother Hypertension Social History Smoking and tobacco status: former smoker Second hand smoke exposure: No Alcohol intake: never Household members: significant other Marital status: / Current occupational status: retired and disabled History of recent travel: No Vitals/I&O/Wt Last Vital Signs Temp 98.6 F 04/22/20 18:47 Pulse 100 04/22/20 19:34 Resp 16 04/22/20 19:35 BP 132/78 04/22/20 19:34 Pulse Ox 94 04/22/20 19:35 Physical Exam Narrative: EXAM NARRATIVE: Pleasant female Currently stable no active chest pain or respiratory distress Appears stated age S1, S2 no tachycardia, heart failure Hemodynamically stable No reproducible chest pain No murmur appreciated Lungs are clear to auscultation EOMI, PERRLA Appropriate mood and affect No neurological deficit Abdomen soft distended bowel sound present Lower extremity varicose veins otherwise nonpitting edema without active gangrene or ulcer Does not look fluid overloaded or dehydrated Data : 04/22/20 18:55 04/22/20 18:55 A&P Assessment and plan (1) Unstable angina: Status: Acute (2) Stented coronary artery: Status: Acute Additional A&P Information Unstable angina Recent coronary angiogram status post balloon angioplasty and stent placement in rami intermedius, Moderate lesions found in left coronary artery as well I would monitor her EKG with serial troponins Currently chest pain 08/15, EKG without ischemic or infarctive changes, troponin 1600(previous troponins 900 from outside facility, at [facility] [place], [place] her troponins were 766), considering the fact that she had angioplasty and moderate coronary disease of other vessels my threshold to start anticoagulant/ACS will be low if her next troponins are higher than the baseline(will give first therapeutic dose now Lovenox 100 mg SC), in case of worsening of her symptoms she will need another angiogram for now I would keep her n.p.o. and monitor on telemetry floor Continue aspirin, Plavix, high-dose statins, lisinopril, optimize antianginal medication Case discussed with Dr. Honeycutt Alzheimer's dementia: I would hold Namenda for tonight, no acute delirium or exacerbation of her baseline dementia GERD: Continue Protonix 20 mg daily Anxiety/depression: I would hold buspirone, cetirizine, for tonight Diastolic congestive heart failure: BNP 700, clinically looks euvolemic, will hold Lasix for now Full code N.p.o. 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
--- NOTE | 2020-04-22 21:46 | PC.NURSE ---
Patient arrived to the floor from the ED after report was received via phone. Patient is alert and oriented and ambulatory. Patient states I was just discharged Thursday after I had a stent put in my heart here. Right wrist post-cath site WNL. VSS. Patient was on 2 L NC when arriving from the ED. Patient was weaned to room air with oxygen saturation maintaining 90s. Patient does not have any pain or any other complaints at this time.
[2020-04-22 21:55] LABS: Troponin 5 2HR 1826 ng/L (0-10); Troponin 5 2HR Delta 270 ABS# (0-10)
[2020-04-22] MEDS: enoxaparin 100 mg/mL Syringe SUBCUT (21:55)
--- NOTE | 2020-04-22 22:09 | PC.NURSE ---
Dr. Agarwal notified of critical troponin. Also notified that med rec has been updated and patient states she has not had the nighttime doses of her home medications.
[2020-04-23] VITALS (26 sets, daily range): BP systolic 116–172; BP diastolic 71–103; PULSE 79–112; RESP 9–25; TEMP 36.7–36.8; O2SAT 84–99
--- NOTE | 2020-04-23 00:12 | PC.NURSE ---
Patient placed back on 2 L NC due to oxygen saturation dropping down to 86 percent while sleeping. Will monitor.
--- NOTE | 2020-04-23 00:51 | ECG_ITS ---
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 Measurements Intervals [place] Rate: 89 P: 57 WV: 154 QRS: -5 QRSD: 84 T: 42 QT: 364 QTc: 444 Interpretive Statements SINUS RHYTHM WITH OCCASIONAL VENTRICULAR PREMATURE COMPLEXES Compared to ECG 04/22/2020 18:57:49 Ventricular premature complex(es) now present Left-axis deviation no longer present Electronically Signed On 04-23-2020 21:45:45 CDT by Axel Gisbon M.D. [email or web address]/[id number]
--- NOTE | 2020-04-23 01:11 | PC.NURSE ---
Dr. Agarwal notified of patient complaining of restless legs, asking for her med for it.
[2020-04-23] MEDS: pramipexole 0.25 mg Tablet 0.125 MG PO ×2 (01:33→21:07)
[2020-04-23 01:51] LABS: Troponin 5 6HR 1690 ng/L (0-10); Troponin 5 6HR Delta 134 ng/L (0-12)
[2020-04-23 05:24] LABS: Anion Gap 14.4 (5-19); Blood Urea Nitrogen 20 mg/dL (8-23); Calcium 9.8 mg/dL (8.5-10.5); Carbon Dioxide 26 mmol/L (22-29); Chloride 104 mmol/L (98-107); Glomerular Filtration Rate 83.2 mL/min (90-130); Glucose 110 mg/dL (65-115); Osmolality Calculated 293 mOsm/kg (285-295); Potassium 4.4 mmol/L (3.5-5.1); Sodium 140 mmol/L (136-145)
--- NOTE | 2020-04-23 08:38 | PM.CONSULT ---
Providers/Reason For Consult Consulting Physican/Specialty*: Nigel Gibson MD/cardiology Reason for Consult*: Patient with chest pain, recent PCI, elevated troponin T Attending Physician: Washington Garcia MD Primary Care Provider: Jorge Styles History of Present Illness History of Present Illness Melvi Jaeger is a 70 year old female is admitted to the hospital through the emergency room, where she presented with complaints of chest pain. This patient is known to have coronary artery disease, recent PCI, high blood pressure, dyslipidemia and cognitive dysfunction. She was admitted to hospital, 3 days prior to this admission, when she presented with a non-ST elevation myocardial infarction. Subsequent cardiac catheterization evealed a high-grade in-stent stenosis in the proximal to mid segments of the intermedius artery. She had a balloon angioplasty of the proximal lesion and balloon angioplasty followed by stent placement of the distal lesion. She had a high-grade lesion in the [place] vessel, distal to the distal stent which was ballooned. There was some residual lesion left in this area which thought to be appropriate to treat medically. The patient was discharged home in stable condition. Yesterday around 5 PM, she started having mid substernal chest pain, more or less similar to what she had previously. She had associated nausea and shortness of breath. The pain was radiated to the left arm. No other associated symptoms or radiation of pain. The intensity of the pain was 10/10. She took 1 sublingual nitro spray which brought down the pain to 7/10. At this point, she called the ambulance. In the ambulance, she was given 2 more sublingual nitro. Her pain came down to 3/10. Her initial troponin T in the emergency room was found to be elevated, in the 1500 range. According to age 6 hours was 1826. She had a delta of 270. Her chest pain gradually started subsiding. At the time of my examination, she is pain-free. She denies any fever, chills or cough. No other specific complaints. She has been compliant with medications. Review of Systems Narrative: CONSTITUTIONAL: No fever or chills. EYES: No blurring of vision or other visual disturbances lately. ENT: No hoarseness of voice, auditory disturbances or sore throat. CARDIOVASCULAR: As mentioned above. RESPIRATORY: No significant cough. GASTROINTESTINAL: No hematemesis or melena. GENITOURINARY: No dysuria or hematuria. INTEGUMENTARY: No skin rashes or history of skin cancer. NEURO: No transient ischemic attacks or amaurosis. PSYCHIATRIC: No history of psychosis or major depression. HEMATOLOGIC: No bleeding disorders or significant anemia. ENDOCRINE: No history of polyuria or polydipsia. MUSCULOSKELETAL: No recent joint pain or swelling. ALLERGY/IMMUNOLOGY: As mentioned above. Meds/Allergies Home Medications and Allergies Home Medications Medication Instructions Recorded Confirmed Last Taken Type amlodipine 10 mg tablet 10 mg PO DAILY 08/09/19 04/22/20 04/22/20 08:00 History aspirin 81 mg tablet,delayed 81 mg PO DAILY 08/09/19 04/22/20 04/22/20 08:00 History release atorvastatin 80 mg tablet 80 mg PO DAILY 08/09/19 04/22/20 04/22/20 08:00 History buspirone 10 mg tablet 10 mg PO BID 08/09/19 04/22/20 04/22/20 08:00 History cetirizine 10 mg tablet 5 mg PO DAILY 08/09/19 04/22/20 04/22/20 08:00 History donepezil 10 mg tablet 10 mg PO DAILY 08/09/19 04/22/20 04/22/20 08:00 History lisinopril 40 mg tablet 40 mg PO DAILY 08/09/19 04/22/20 04/22/20 08:00 History memantine 10 mg tablet 10 mg PO BID #180 tab 08/09/19 04/22/20 04/22/20 08:00 Rx omeprazole 20 mg capsule,delayed 20 mg PO DAILY 08/09/19 04/22/20 04/22/20 08:00 History release pramipexole 0.125 mg tablet 0.125 mg PO DAILY 08/09/19 04/22/20 04/22/20 08:00 History simethicone 125 mg chewable tablet 125 mg PO BID PRN tab 08/09/19 04/22/20 Unknown History metoprolol succ 50 0.5 tab PO BID 12/13/19 04/22/20 04/22/20 08:00 History mg-hydrochlorothiazide 12.5 mg tablet,ext.rel 24 hr furosemide 20 mg tablet 20 mg PO DAILY 01/16/20 04/22/20 04/22/20 08:00 History baclofen 20 mg tablet 20 mg PO TID PRN 90 Days #270 tab 04/12/20 04/22/20 04/18/20 Rx oxycodone-acetaminophen 10 mg-325 1 tab PO TID PRN 30 Days #90 tab 04/12/20 04/22/20 04/18/20 Rx mg tablet tramadol 50 mg tablet 100 mg PO TID PRN 30 Days #180 tab 04/12/20 04/22/20 04/18/20 Rx isosorbide mononitrate 30 mg PO DAILY 04/19/20 04/22/20 04/22/20 08:00 History clopidogrel 75 mg PO DAILY 30 Days #30 tab 04/20/20 04/22/20 04/22/20 08:00 Rx Allergies Allergy/AdvReac Type Severity Reaction Status Date / Time Penicillins AdvReac Unknown hives Verified 04/22/20 22:15 Sulfa (Sulfonamide AdvReac Unknown hives Verified 04/22/20 22:15 Antibiotics) Current Medications Current Medications Generic Name Dose Route Start Last Admin Trade Name Freq PRN Reason Stop Dose Admin Pramipexole Dihydrochloride 0.125 mg 04/23/20 01:28 04/23/20 01:33 Mirapex PO 0.125 mg BEDTIME SHIRIN Administration PFSH Acute PFSH: Medical History (Updated 04/23/20 @ 09:22 by Axel Gibson MD) Atherosclerotic heart disease of [place] coronary artery with unstable angina pectoris CAD (coronary artery disease) Diastolic congestive heart failure Encounter for long-term use of opiate analgesic History of myocardial infarction Hx of gastroesophageal reflux (GERD) Hx of skin cancer, basal cell Hypercholesterolemia Hypertension Intervertebral disc disorder with radiculopathy of lumbosacral region Opioid contract exists 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 region Surgical History History of hysterectomy for cancer Hx of cholecystectomy Stented coronary artery Family History Father CAD (coronary artery disease) Hypertension Stroke Mother Hypertension Social History Smoking and tobacco status: former smoker Second hand smoke exposure: No Alcohol intake: never Household members: significant other Marital status: / Current occupational status: retired and disabled History of recent travel: No Vitals/I&O/Wt Last Vital Signs Temp 98.3 F 04/23/20 07:10 Pulse 87 04/23/20 07:10 Resp 18 04/23/20 07:10 BP 116/71 04/23/20 07:10 Pulse Ox 99 04/23/20 07:10 04/22/20 04/23/20 04/23/20 22:59 06:59 14:59 Intake Total 300 / 300 Balance 300 / 300 Weight last 48 hrs Weight 220 lb 12.8 oz Physical Exam Narrative: EXAM NARRATIVE: GENERAL: The patient is alert and oriented times three. Not in any acute distress. HEENT: No significant pallor, icterus or lymphadenopathy. The fundus is not visualized NECK: Trachea appears to be central. No masses noted. No JVD or thyromegaly appreciated. No carotid bruit. RESPIRATORY: Chest is symmetrical. No intercostals muscle retraction or any accessory muscle activation. There is no chest wall tenderness. Breath sounds are heard bilaterally. No rales or rhonchi heard. No evidence of any consolidation. BREASTS: Deferred. HEART: the PMI was not palpated.. No palpable precordial events. S1 and S2 are normal. No S3 or S4 heard. No pericardial rub or any click heard. ABDOMEN: No vessel pulsations or distention. No tenderness. No organomegaly appreciated. No abdominal bruit. Bowel sounds are normally heard. : Deferred. RECTAL: Deferred. LYMPHATIC: No lymphadenopathy noted in the neck or groin. EXTREMITIES: No edema or cyanosis. No clubbing. The pulses are symmetrical bilaterally. The radial, femoral, dorsalis pedis and the posterior tibial pulses are palpated and found to be in good volume and amplitude. MUSCULOSKELETAL: Gait is normal. There is no joint deformity or swelling noted. No joint tenderness or any effusion. The shoulder and hip joints appear to have normal range of motion. SKIN: There are no significant scars or skin rash noted. NEUROPSYCHIATRIC: The patient is alert and oriented x3. Appears to be in a good mood. The higher functions are grossly within normal limits. No tremors or rigidity noted. Data Labs: Other Labs: Laboratory Last Values WBC 4.6 10^3/uL (4.0- 10.0) 04/22/20 18:55 RBC 4.54 10^6/uL (4.1 -5.3) 04/22/20 18:55 Hgb 13.2 g/dL (11.5-1 5.3) 04/22/20 18:55 Hct 41.9 % (37.0-47.0 ) 04/22/20 18:55 MCV 92.3 fL (81-99) 04/22/20 18:55 MCH 29.1 pg (28.0-34. 0) 04/22/20 18:55 MCHC 31.5 g/dL (30.0-3 6.0) 04/22/20 18:55 RDW 13.3 % (12.1-15.1 ) 04/22/20 18:55 Plt Count 183 10^3/cmm (130 -400) 04/22/20 18:55 MPV 11.3 fL (7.4-10.4 ) H 04/22/20 18:55 Neut % (Auto) 41.5 % 04/22/20 18:55 Lymph % (Auto) 37.7 % 04/22/20 18:55 [place] % (Auto) 15.9 % 04/22/20 18:55 Eos % (Auto) 4.1 % 04/22/20 18:55 Baso % (Auto) 0.4 % 04/22/20 18:55 Neut # (Auto) 1.90 10^3/uL (1.8 -7.7) 04/22/20 18:55 Lymph # (Auto) 1.7 10^3/uL (0.8- 4.8) 04/22/20 18:55 [place] # (Auto) 0.7 10^3/uL (0.2- 0.9) 04/22/20 18:55 Eos # (Auto) 0.2 10^3/uL (0.0- 0.8) 04/22/20 18:55 Baso # (Auto) 0.0 10^3/uL (0.0- 0.1) 04/22/20 18:55 Nucleated RBC % (a uto) 0 % 04/22/20 18:55 Nucleated RBCs # 0.0 /100WBC 04/22/20 18:55 PT 12.20 SECONDS (12 .1-14.9) 04/22/20 18:55 INR 0.88 (0.8-1.2) 04/22/20 18:55 Sodium 140 mmol/L (136-1 45) 04/23/20 04:43 Potassium 4.4 mmol/L (3.5-5 .1) 04/23/20 04:43 Chloride 104 mmol/L (98-10 7) 04/23/20 04:43 Carbon Dioxide 26 mmol/L (22-29) 04/23/20 04:43 Anion Gap 14.4 (5-19) 04/23/20 04:43 BUN 20 mg/dL (8-23) 04/23/20 04:43 Creatinine 0.7 mg/dL (0.5-0. 9) 04/23/20 04:43 GFR Calculation 83.2 mL/min (90-1 30) L 04/23/20 04:43 Glucose 110 mg/dL (65-115 ) 04/23/20 04:43 Calculated Osmolal ity 293 mOsm/kg (285- 295) 04/23/20 04:43 Calcium 9.8 mg/dL (8.5-10 .5) 04/23/20 04:43 Total Bilirubin 0.3 mg/dL (0.15-1 .2) 04/22/20 18:55 AST 34 U/L (0-32) H 04/22/20 18:55 ALT 26 U/L (0-33) 04/22/20 18:55 Alkaline Phosphata se 96 IU/L (35-105) 04/22/20 18:55 Creatine Kinase 210 U/L (26-192) H 04/22/20 18:55 Troponin T Baselin e 1556 ng/L (0-10) H* 04/22/20 18:55 Troponin T 120 Min alicia 1826 ng/L (0-10) H 04/22/20 21:15 Delta Troponin T 270 ABS# (0-10) H* 04/22/20 21:15 Troponin T Hi Sens 6Hr 1690 ng/L (0-10) H 04/23/20 01:05 Troponin T Hi Sens 6Hr Delta 134 ng/L (0-12) H* 04/23/20 01:05 NT-Pro-B Natriuret Pep 778 pg/mL (0-125) H 04/22/20 18:55 Total Protein 6.9 g/dL (6.6-8.7 ) 04/22/20 18:55 Albumin 4.5 g/dL (3.5-5.2 ) 04/22/20 18:55 Globulin 2.4 g/dL (1.3-4.6 ) 04/22/20 18:55 Imaging^: Cardiac catheterization: My impression: Angiogram was performed on 04/19/2020. The findings are as follows. Diagnostic Findings * LAD has mid segment 50% stenosis after takeoff of large diagonal branch. Distally LAD is a small vessel and has diffuse luminal irregularities... * CX has proximal 30 to 40% stenosis it gives rise to 3 OM branches that are small in caliber. OM 2 has proximal to mid 50 to 60% stenosis however it is a small vessel.. * RCA is a large vessel has no significant stenosis.. * Ramus artery has proximal to distal stents. There is severe in-stent restenosis from proximal to distal stents. Right after the stent there is subtotal occlusion of the vessel. There is JATINDER I flow. Severe 85% stenosis, JATINDER: 1 flow. * LM has 0% stenosis. * Coronary angiography shows right dominance. PCI details * We the left main artery using XB 3.5 guide catheter. IV heparin wasadministered to maintain a nice ACT of 250 sec throughout the procedure. A0.014 run-through guidewire was used to cross the lesions and ramus artery.We used a 2.5 x 15 mm semi-compliant balloon to perform serial dilations ofin-stent restenosis and also subtotally occluded distal ramus artery. At thelevel of distal ramus stent, severe stenosis was still present after balloonangioplasty. We decided to put a 2.75 x 18 mm resolute Ranulfo stent there. For balloon angioplasty of proximal portion of ramus artery stent, we used a 3.0 x12 mm NC balloon. At this time final angiogram was obtained. There was stillsome residual stenosis in the very distal segment of the artery that was leftfor medical management. However the rest of the vessel had JATINDER-3 flow. Good stent expansion was noted. 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 * Ramus: 85% stenosis treated with AB TREK 2.50X15 RX BALLOON, AGUSTO Elias RANULFO 2.75X18 NATALIIA, and AGUSTO GAMBINO EUPHORA RX [id number] BALLOON. 0% residual stenosis, JATINDER: 3 flow. Echo: My impression: Echocardiogram on 04/19/2020 revealed 1. This is a technically difficult study. 2. Normal left ventricular cavity size. Normal left ventricular systolic function. Left ventricular ejection fraction is estimated at 60 %. There is possible hypokinesis of mid anteroseptal and apical septal yousif. Normal diastolic function. 3. Pulmonary artery pressure estimated at 38 mmHg. 4. When compared to previous echocardiogram dated 01/17/2020, there may be possible hypokinesis of anteroseptal wall. EKG^: EKG 1: My Interpretation: normal sinus rhythm with normal [place] and QRS duration. No significant ST-T changes. A&P Assessment and plan (1) NSTEMI (non-ST elevated myocardial infarction): The patient's clinical features are consistent with a non-ST elevation myocardial infarction. She may treated with subcu Lovenox, Plavix, aspirin, nitrates, statin and the other current medications. Status: Acute (2) Atherosclerotic heart disease of [place] coronary artery with unstable angina pectoris: Patient had a cardiac colorization on the 15th of this month. The findings are as follows. It is very possible that she may have occluded the intermedius artery. For further evaluation, a repeat cardiac dilatation and possible repeat PCI would be appropriate. I will be discussing this with Dr. Ramos. May continue on the current measures for the time being. Status: Acute Qualifiers: [place] vs. transplanted heart: [place] heart Qualified Code(s): I25.110 - Atherosclerotic heart disease of [place] coronary artery with unstable angina pectoris (3) Hypercholesterolemia: May continue on the current medications. Status: Acute (4) Hypertension: Currently normotensive. Status: Acute Qualifiers: Hypertension type: essential hypertension Qualified Code(s): I10 - Essential (primary) hypertension (5) Alzheimer disease: Management as per the primary. Status: Acute Qualifiers: Alzheimer's disease onset: other onset Dementia behavioral disturbance: without behavioral disturbance Qualified Code(s): G30.8 - Other Alzheimer's disease; F02.80 - Dementia in other diseases classified elsewhere without behavioral disturbance Additional A&P Information Based on the patient's clinical progress and the results of the above, further recommendations will be made. Thank you for the opportunity to evaluate this patient make recommendations. Coding Level of Care Code Acute Wild Animal Caretaker for Chg Fwd Diagnoses NSTEMI (non-ST elevated myocardial infarction) I21.4 Atherosclerotic heart disease of [place] coronary artery with unstable angina pectoris I25.110 [place] vs. transplanted heart: [place] heart Hypercholesterolemia E78.00 Hypertension I10 Hypertension type: essential hypertension Alzheimer disease G30.8; F02.80 Alzheimer's disease onset: other onset Dementia behavioral disturbance: without behavioral disturbance
[2020-04-23] MEDS: lisinopril 20 mg Tablet 40 MG PO (08:46)
[2020-04-23] MEDS: atorvastatin 40 mg Tablet 80 MG PO (08:46)
[2020-04-23] MEDS: pantoprazole DR 40 mg Tablet PO (08:46)
[2020-04-23] MEDS: clopidogrel 75 mg Tablet PO (08:46)
[2020-04-23] MEDS: aspirin 81 mg EC Tablet PO (08:46)
[2020-04-23] MEDS: isosorbide mononitrate ER 30 mg Tablet PO (08:47)
[2020-04-23] MEDS: enoxaparin 100 mg/mL Syringe SUBCUT ×2 (08:47→21:07)
--- NOTE | 2020-04-23 09:47 | PC.CHAP ---
Pastoral Care Encounter/Spiritual Assessment Type of Contact [] Declined private investigator visit [] Patient/Family/Request visit [] Outpatient visit [] Follow-up visit [] Physician referral [] Code/Alert [] Routine visit [] Staff referral [] Actively dying [] Patient sleeping [] Family support [] [] Out of room [] Palliative care [] [x] Receiving care in room [] Pre-surgical visit [] Trauma [] Long length of stay [] ICU visit [] Other: Relational/Emotional Strength [] Patient feels connected with others/family/visitors/staff [] Distress [] Loneliness/isolation [] Abandonment Spirituality of Patient [] Person of Yuli [] Attends Restorationism of their Yuli [] Believes in Prayer [] Reads Bible or Yarsani materials [] There are Spiritual issues to be addressed Spa Coordinator Interventions [x] Prayer [] Active listening [] Non-anxious presence [] Spiritual/emotional support [] Crisis/trauma care [] Spiritual counseling [] Bereavement support [] Provided bereavement packet [] Provided Bible/devotional materials [] Provided toy/stuffed animal, coloring book to patient or family member [] Provided Communion [] Anointing/Mars [] Salvation [x] Completed spiritual assessment [] Other: Impact on Illness or Injury [] Angry [] Fearful [] Anxious [] Often cries [] Exhaustion [] Unable to work [] Unable to attend rastafarian [] Unable to walk/stand [] Unable to read [] Unable to drive [] Unable to eat/drink [] Unable to sleep [] Unable to be with family [] Patient intubated [] Other: Summary Time spent with patient
--- NOTE | 2020-04-23 10:22 | XACV_ITS ---
Exam Room: [facility] Ht: 163 cm Wt: 100 kg BSA: 2.17 m2 Gender: Female : 1950 Any Known Allergies: Sulfa Exam Priority: Routine Procedure(s): Procedure Description: Diagnostic procedure Procedure Description: PTCA Procedure Description: Coronary Angiography Diagnostic Cath Status: Urgent Diagnostic Findings * LAD has mid segment 30% stenosis after takeoff of large diagonal branch. The LAD is a small vessel and has diffuse luminal irregularities.. * CX has proximal 30 to 40% stenosis. It gives rise to 3 OM branches that are small in caliber. OM 2 has proximal to mid 50 to 60% stenosis however it is a small vessel.. * RCA is a large vessel and does not have any significant stenosis.. * Ramus artery is medium sized vessel. It has proximal to distal stents. * Distal stent has complete occlusion. Ramus: Severe 100% stenosis, JATINDER: 0 flow. * LM has 0% stenosis. * Coronary angiography shows right dominance. PCI Status: Urgent PCI Indication: NSTE - ACS Interventional Findings * We engaged the left main artery using XB 3.5 guide catheter. A 0.014 run-through guidewire was used to cross the lesion and was placed on distal ramus artery. We initially attempted to perform balloon angioplasty of distal occluded stent using 3.0 x 27 mm NC balloon however it would not cross into the distal stent. We then performed balloon angioplasty initially using 2.0 x 8 mm balloon. This was followed by a 2.75 x 8 mm NC balloon. Several attempts using this and eventually 3.0 x 27 mm NC balloon were made and balloon angioplasty was performed. JATINDER I-II flow was restored. Given this arteries poor outflow and multiple layers of stents in the ramus artery we decided to stop here and treat residual stenosis medically. Patient was chest pain-free at this time. * Ramus: 100% stenosis treated with MDT NC EUPHORA RX 3.36Y99WH BALLOON, MDT NC EUPHORA RX 2.29H96HL BALLOON, and MDT NC EUPHORA RX 2.0X08MM BALLOON. 40% residual stenosis, JATINDER: 2 flow. Conclusions 1. There is severe coronary artery disease with one vessel disease. Occluded recently placed distal ramus stent.. 2. Ramus was treated with three Balloon. Recommendations * Patient has questionable compliance with medications. She mentioned she might not be taking her medicines and does not remember names of her medications. Patient has cognitive dysfunction. We attempted balloon angioplasty and were able to achieve JATINDER I-II flow however this vessel has poor outflow and multiple layers of stents. Given patient's poor compliance, multiple layers of stents and poor outflow we decided not to put another stent and treat residual stenosis. * Continue aspirin and Plavix. * High intensity statin. * Beta-juan and lisinopril. * Order repeat echocardiogram with contrast. Interventional RX Recommendation: PCI w/o planned CABG Diagnostic RX Recommendation: PCI w/o planned CABG Anticoagulation: Heparin Pressures Phase:Rest AO : 132 / 71 ( 93 ) @ 5:58:00 AM 105 / 69 ( 86 ) @ 6:03:00 AM 118 / 64 ( 86 ) @ 6:10:00 AM 121 / 78 ( 100 ) @ 6:27:00 AM 108 / 65 ( 84 ) @ 6:45:00 AM Clinical Evaluation EBL: 5mL-10mL Procedural Details Procedure Consent Obtained. Pre-Procedure Time Out. Identified patient by full name and date of as verbalized by the patient/guarantor. Does the consent match the physician's order: Yes. Accurate & Complete Informed Consent: Yes. Inpatient/Outpatient History & Physical on Chart: Yes. If H&P is completed, is and addenduem needed: No; If yes, is the addendum complete: N/A. Visualize and Verify Site with Patient/Guarantor: N/A. Relevant Radiology Images available: N/A. Pre-op teaching completed and patient verbalized understanding. The risks, benefits, and alternatives of sedation and/or procedure were discussed by physician. The patient agrees to continue. Hemodynamic formulas in Rest were re-calculated based on hemoglobin value from 04/22/2020 6:55:00 PM. Procedure started. [facility] Clinical Fraility Score: 3: Managing Well. Manager Business Process Indications: ACS <= 24 hours. Chest Pain Symptom Assessment: Typical Angina Symptoms. Cardiovascular Instability: No. Correct patient, site and procedure confirmed by cath team. PERRLA. 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 Lungs clear x 5 lobes. IV Site on Arrival: 20 gauge in the left anticubital. IV Fluids: 0.9% NaCl at KVO. 0 mL infused prior to laborer/grade check. Pre Procedural Pulses: bilateral dorsalis pedis was Doppled. Pre Procedural Pulses: bilateral posterior tibial was Doppled. Pre Procedural Pulses: bilateral radial was 2+. Oxygen started at 2liters/min via nasal canula. Baseline sample Acquired. HR: 85 BPM. Physician notified. Physician arrived. Equipment: 6F - Radial. Cardiac Cath Pack. ACIST Manifold Kit Model BT 2000. Heparinized Saline (2 units/mL), 1000 mL bag. bilateral groins was prepped with chloroprep then draped in the usual sterile fashion. right radial was prepped with chloroprep then draped in the usual sterile fashion. Physician scrubbed in. Immediate Pre-Procedure Time Out. Correct Patient: Yes; Correct Procedure: Yes; Correct Site: Yes; Correct Patient Position: Yes; Correct Supplies: Yes; Dried Flammable Prep: Yes; Blood Products Available: N/A;. Lidocaine 1% infiltrated to the right radial. Arterial access obtained. A 5 turkmen TIG catheter in over wire. Multiple views taken of left coronary artery. Catheter redirected to the RCA. Multiple views taken of right coronary artery. Catheter out. Inventory is [facility] 6 FR XB 3.5 GUIDE. 6 turkmen XB 3.5 guide catheter was inserted over the wire. Runthrough guidewire was advanced through the guide catheter to lesion in the Ramus. Inflation number : 1 A MDT NC EUPHORA RX 3.51G17GE BALLOON was prepped and advanced across the Ramus , then inflated to 14 CHRISTOPHER for 0:23 seconds. Balloon out. Inventory is AB BMW Guide Wire .014 190cm. Wire out. BMW guidewire was advanced through the guide catheter to lesion in the Ramus. Inflation number: 2 The MDT NC EUPHORA RX 3.90N22XK BALLOON was reinflated across the Ramus, to 14 CHRISTOPHER for 0:22 seconds. Balloon out. Inflation number : 3 A MDT NC EUPHORA RX 2.09G58RN BALLOON was prepped and advanced across the Ramus , then inflated to 14 CHRISTOPHER for 0:10 seconds. Inflation number: 4 The MDT NC EUPHORA RX 2.99X76ZY BALLOON was reinflated across the Ramus, to 14 CHRISTOPHER for 0:13 seconds. Results checked. Balloon out. Inflation number : 5 A MDT NC EUPHORA RX 2.0X08MM BALLOON was prepped and advanced across the Ramus , then inflated to 14 CHRISTOPHER for 0:12 seconds. Inflation number: 6 The MDT NC EUPHORA RX 2.0X08MM BALLOON was reinflated across the Ramus, to 14 CHRISTOPHER for 0:26 seconds. Inflation number: 7 The MDT NC EUPHORA RX 2.0X08MM BALLOON was reinflated across the Ramus, to 14 CHRISTOPHER for 0:15 seconds. Inflation number: 8 The MDT NC EUPHORA RX 2.0X08MM BALLOON was reinflated across the Ramus, to 14 CHRISTOPHER for 0:09 seconds. Balloon out. Inflation number: 9 The MDT NC EUPHORA RX 2.76K27QO BALLOON was reinflated across the Ramus, to 16 CHRISTOPHER for 0:14 seconds. Inflation number: 10 The MDT NC EUPHORA RX 2.80Z84MH BALLOON was reinflated across the Ramus, to 16 CHRISTOPHER for 0:09 seconds. Inflation number: 11 The MDT NC EUPHORA RX 2.96W55DV BALLOON was reinflated across the Ramus, to 16 CHRISTOPHER for 0:17 seconds. Inflation number: 12 The MDT NC EUPHORA RX 2.37E76HX BALLOON was reinflated across the Ramus, to 16 CHRISTOPHER for 0:06 seconds. Balloon out. Wire out. Called for anesthesia to come assist with sedation. Runthrough guidewire was advanced through the guide catheter to lesion in the Ramus. 3.0x27 NC balloon inserted and removed. Wire out. Guide catheter out. Physician scrubbed out. A TR Band was successful obtaining hemostatsis at the Right Radial artery insertion site. TR band placed. Hemostasis obtained. Post Procedure: Pulses reassessed and unchanged. PERRLA. 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 No VTE prophylaxis required. Medication's Wasted: Lidocaine 1% = 18 mL. Medication's Wasted: Nitro = 49.4 mg. Medication's Wasted: Heparin = 6000 units. Total IV fluids: 200 mL. Complications: none. Post-op diagnosis: occluded Ramus stent. Estimated blood loss: 5mL-10mL. PCI Indication: NSTE. Procedure completed. Patient transferred by bed to 1st floor. Vital chart was stopped. Access Site Site: Right Radial artery Sheath Size: 6 Fr Hemostasis Method: TR Band Hemostasis Success: Successful Procedure Medications Start: 10:49 AM Stop: 10:49 AM Medication: Fentanyl Amount: 50 mcg Route: I.V. Start: 10:49 AM Stop: 10:49 AM Medication: Versed Amount: 1 mg Start: 10:56 AM Stop: 10:56 AM Medication: Nitrogylcerin Amount: 200 mcg Route: I.A. Start: 10:57 AM Stop: 10:57 AM Medication: Versed Amount: 1 mg Route: I.V. Start: 10:57 AM Stop: 10:57 AM Medication: Fentanyl Amount: 50 mcg Route: I.V. Start: 11:34 AM Stop: 11:34 AM Medication: Versed Amount: 2 mg Route: I.V. Start: 11:36 AM Stop: 11:36 AM Medication: Fentanyl Amount: 25 mcg Route: I.V. Start: 11:37 AM Stop: 11:37 AM Medication: Fentanyl Amount: 25 mcg Route: I.V. Start: 11:39 AM Stop: 11:39 AM Medication: Fentanyl Amount: 50 mcg Route: I.V. Start: 11:40 AM Stop: 11:40 AM Medication: Nitrogylcerin Amount: 200 mcg Route: I.C. Start: 11:41 AM Stop: 11:41 AM Medication: Morphine Amount: 2 mg Route: I.V. Start: 11:43 AM Stop: 11:43 AM Medication: Nitrogylcerin Amount: 200 mcg Route: I.C. Start: 11:46 AM Stop: 11:46 AM Medication: Morphine Amount: 2 mg Route: I.V. Start: 11:49 AM Stop: 11:49 AM Medication: Zofran (ondansetron) Amount: 4 mg Route: I.V. I, the attending physician, have reviewed and verified all procedure medications. Yes, all medications given per verbal order History/Risk Factors Hypertension: Yes Dyslipidemia: Yes Peripheral Arterial Disease (PAD): No Myocardial Infarction (NE): No Obesity: Yes Renal Disease: No Tobacco Use: Former Prior Interventions PCI: Yes CABG: No Valve Surgery: No Report Signatures Finalized by Glen Ramos MD on 04/30/2020 06:45 PM
--- NOTE | 2020-04-23 10:32 | P.PN_ITS ---
Subjective Subjective: Interval history: Patient reports that her chest pain resolved and she is pain-free this morning. Denies shortness of breath or abdominal pain. Reports compliance with her medications including Plavix. Troponin appears to be trending down. Vitals/I&O/Wt Last Vital Signs Temp 98.3 F 04/23/20 07:10 Pulse 87 04/23/20 07:10 Resp 18 04/23/20 07:10 BP 116/71 04/23/20 07:10 Pulse Ox 99 04/23/20 07:10 04/22/20 04/23/20 04/23/20 22:59 06:59 14:59 Intake Total 300 / 300 Balance 300 / 300 Weight last 48 hrs Weight 100.153 kg Physical Exam Const: COMMON NORMALS: no acute distress and patient oriented x3 Resp: COMMON NORMALS: normal respiratory effort and clear to auscultation bilaterally AUSCULTATION: clear to auscultation bilaterally Cardio: COMMON NORMALS: regular rate, regular rhythm and S2 normal heart sound present RATE: regular rate RHYTHM: regular rhythm HEART SOUNDS: S2 normal heart sound present OTHER: No lower extremity edema GI: COMMON NORMALS: Normal to inspection, nondistended, normoactive bowel sounds present, Soft to palpation and non-tender PALPATION: Yes Soft to palpation Neuro: COMMON NORMALS: patient oriented x3 and no focal motor deficits Data : 04/22/20 18:55 04/23/20 04:43 A&P Assessment and plan (1) Stented coronary artery: Status: Acute (2) NSTEMI (non-ST elevated myocardial infarction): Status: Acute Additional A&P Information Alzheimer's dementia: I would hold Namenda for tonight, no acute delirium or exacerbation of her baseline dementia GERD: Continue Protonix 20 mg daily Anxiety/depression: I would hold buspirone, cetirizine, for tonight Diastolic congestive heart failure: BNP 700, clinically looks euvolemic, will hold Lasix for now Full code N.p.o. after midnight DVT prophylaxis not indicated currently I am giving her therapeutic dose of Lovenox PLAN: Patient is being taken to [facility] for further evaluation. Attestations Medical Necessity Statement*: Patient was acute non-ST elevation DE requires close inpatient monitoring and treatment. Coding Level of Care Code Acute Credit Compliance Officer for Caridad Clayton Diagnoses Stented coronary artery Z95.5 NSTEMI (non-ST elevated myocardial infarction) I21.4
--- NOTE | 2020-04-23 10:39 | W.PM.OPSUD ---
Surgery/Procedure H&P Update DATE OF PROCEDURE: April 23, 2020 DATE H&P PERFORMED: 04/19/20 H&P UPDATE INFORMATION: I have reviewed H&P completed within last 30 days, I have examined patient prior to procedure and No changes to prior documentation PREOP DIAGNOSIS: NSTEMI PRIMARY INDICATION FOR PROCEDURE: NSTEMI PLANNED PROCEDURE: Left heart cath/coronary angiography/Percutaneous coronary intervention PATIENT REASSESSED PRIOR TO SEDATION, WITH NO CHANGE NOTED: Yes PHYSICAL EXAM: alert and oriented x 3 AIRWAY EVAL/ANESTHESIA PLAN: normal airway, ASA III, Risks, benefits & alternatives of sedation and/or procedure discussed and Patient agrees to continue as planned
--- NOTE | 2020-04-23 12:21 | ECG_ITS ---
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 Measurements Intervals [place] Rate: 90 P: 65 [place]: 173 QRS: -5 QRSD: 90 T: -11 QT: 384 QTc: 470 Interpretive Statements SINUS RHYTHM MODERATE ST DEPRESSION [0.05+ mV ST DEPRESSION] Compared to ECG 04/23/2020 00:44:46 ST (T wave) deviation now present Ventricular premature complex(es) no longer present Electronically Signed On 04-23-2020 21:40:34 CDT by Axel Gibson M.D. [id number]
--- NOTE | 2020-04-23 12:30 | PC.NURSE ---
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 dr ordered nitro drip. tr band in place. no hematoma noted. pt assisted to bathroom, then back to bed. call light within reach, will continue to monitor.
[2020-04-23] MEDS: nitroglycerin drip 50 MG/250 ML PREMIX IV (12:34)
--- NOTE | 2020-04-23 12:41 | USCV_ITS ---
Melvi Jaeger Age: 70 Gender: F : 1950 Exam Date: 04/23/2020 13:26 Ordering Phys: Glen Ramos M.D ([email or web address]) Technologist: Viktor Marquez Exam Location: [facility] [place] Indication: eval ef BP: 167 / 100 HR: 79 Rhythm: Sinus Technical Quality: Very technically difficult study MEASUREMENTS (Male / Female) Normal Values 2D ECHO LV Ejection Fraction MOD 2C 58.3 % LV Ejection Fraction 2C AL 59.7 % FINDINGS Left Ventricle This is a limited echocardiogram done to asssess EF. Poor quality images because of technical difficulty. Overall LVEF appears to be normal. Regional wall motion abnormalities can not be assessed because of limited visualization. Right Ventricle Right Atrium Left Atrium Mitral Valve Aortic Valve Tricuspid Valve Pulmonic Valve Pericardium Aorta CONCLUSIONS This is a limited echocardiogram done to asssess EF. Poor quality images because of technical difficulty. Overall LVEF appears to be normal. Regional wall motion abnormalities can not be assessed because of limited visualization. Glen Ramos MD (Electronically Signed) Final Date: 23 April 2020 16:56 S
--- NOTE | 2020-04-23 12:56 | PM.OP2 ---
Brief Operative Note: Date of procedure: 04/23/20 Pre-op diagnosis: Non-ST elevation MS Post-op diagnosis: other (Occluded ramus stent/ in-stent restenosis of the medius artery.) Procedure Done: Coronary angiography/balloon angioplasty of ramus intermedius. 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 She had a recently put distal ramus artery stent. This vessel has multiple layers of stents done in the past starting from ostium all the way to the distal vessel. Ramus artery post stent is small in size and has poor outflow. Coronary angiography today showed occluded recent ramus stent with significant in-stent restenosis prior to that. Patient has tanana dysfunction and has likely missed doses of Plavix per her history. Report a guidewire across the occluded stent and performed multiple attempts of balloon angioplasty. By end of procedure she has JATINDER I flow however her outflow vessels are small and diseased. Given her multiple stent layers in the artery, diseased outflow and noncompliance with medications we did not attempt to put more stents in this vessel. We will treat her medically at this time. LAD, left circumflex and RCA have good flow. If she has postprocedure chest discomfort episodes repeat EKG and put on nitro drip. Condition: stable Disposition: floor Coding Level of Care Code Acute Commercial Loan Closer for Caridad Clayton
[2020-04-23] MEDS: perflutren protein-a microsphr 0.22 mg/mL SDV 3 mL IV (13:40)
--- NOTE | 2020-04-23 14:30 | PC.NURSE ---
tr band removed. dressing in place, no hematoma noted. will continue to monitor. call light in place.
[2020-04-23 18:12] LABS: Partial Thromboplastin Time 36.8 SECONDS (23.9-36.7)
[2020-04-23] MEDS: BuSPIRONE 10 mg Tablet PO (18:29)
[2020-04-23] MEDS: memantine 5 mg tablet 10 MG PO (18:29)
--- NOTE | 2020-04-23 23:36 | PC.NURSE ---
Patient resting in bed with eyes closed, patient very needy so far thus shift. Patient denies any complaints of pain at this time, Nitro Gtt still running at 15. Call light within reach, v/s wnl. continue care.
[2020-04-24] VITALS (8 sets, daily range): BP systolic 119–166; BP diastolic 73–102; PULSE 91–119; RESP 14–19; TEMP 36.4–37; O2SAT 14–97
--- NOTE | 2020-04-24 01:48 | PC.NURSE ---
Patient reported an increase in chest pain and Nitro drip was titrated up per protocol. V/S all stable and wnl, no changes on ice cutter, patient has not complained of chest pain since. Call light is within reach, continue care.
[2020-04-24] MEDS: ALPRAZolam 0.25 mg Tablet PO ×2 (04:02→19:52)
--- NOTE | 2020-04-24 04:39 | PC.NURSE ---
Patient restless and needing attention from staff this shift. Patient reported a mild stomach ache, nurse gave patient a diet sprite and some crackers to help, patient stated upset stomach went away. Patient also requested something to make her sleep or to help calm her down at 0400, PRN xanax given per orders and patients request. Patient is currently resting in room with eyes open at this time, denies pain, call light is within reach, continue care.
--- NOTE | 2020-04-24 06:17 | PC.NURSE ---
End of shift: Uneventful shift, nitro drip still running, v/s wnl, patient denies pain, call light within reach, continue care.
--- NOTE | 2020-04-24 07:14 | PC.NURSE ---
chest pressure rated at 4/10 nitro drip increase to 20 mcg
[2020-04-24] MEDS: pantoprazole DR 40 mg Tablet PO (09:01)
[2020-04-24] MEDS: cetirizine 10 mg Tablet 5 MG PO (09:01)
[2020-04-24] MEDS: memantine 5 mg tablet 10 MG PO (09:02)
[2020-04-24] MEDS: amlodipine 10 mg Tablet PO (09:02)
[2020-04-24] MEDS: BuSPIRONE 10 mg Tablet PO ×2 (09:02→18:13)
[2020-04-24] MEDS: pramipexole 0.25 mg Tablet 0.125 MG PO ×2 (09:02→19:52)
[2020-04-24] MEDS: metoprolol succinate ER (24 HR) 50 mg Tablet 25 MG PO ×2 (09:04→18:12)
[2020-04-24] MEDS: donepezil 5 MG Tablet 10 MG PO (09:04)
[2020-04-24] MEDS: FUROsemide 20 mg Tablet PO (09:05)
[2020-04-24] MEDS: aspirin 81 mg EC Tablet PO (09:05)
[2020-04-24] MEDS: atorvastatin 40 mg Tablet 80 MG PO (09:05)
[2020-04-24] MEDS: isosorbide mononitrate ER 30 mg Tablet PO (09:05)
[2020-04-24] MEDS: clopidogrel 75 mg Tablet PO (09:07)
[2020-04-24] MEDS: lisinopril 20 mg Tablet 40 MG PO (09:07)
[2020-04-24] MEDS: hydroCHLOROthiazide 25 mg Tablet 6.25 MG PO ×2 (09:10→18:12)
--- NOTE | 2020-04-24 09:37 | PC.CHAP ---
Pastoral Care Encounter/Spiritual Assessment Type of Contact [] Declined automotive software engineer visit [] Patient/Family/Request visit [] Outpatient visit [] Follow-up visit [] Physician referral [] Code/Alert [x] Routine visit [] Staff referral [] Actively dying [] Patient sleeping [] Family support [] [] Out of room [] Palliative care [] [] Receiving care in room [] Pre-surgical visit [] Trauma [] Long length of stay [] ICU visit [] Other: Relational/Emotional Strength [] Patient feels connected with others/family/visitors/staff [] Distress [] Loneliness/isolation [] Abandonment Spirituality of Patient [] Person of Yuli [] Attends Rastafarian of their Yuli [] Believes in Prayer [] Reads Bible or Christianity materials [] There are Spiritual issues to be addressed Plastic And Reconstructive Surgeon Interventions [x] Prayer [x] Active listening [x] Non-anxious presence [x] Spiritual/emotional support [] Crisis/trauma care [] Spiritual counseling [] Bereavement support [] Provided bereavement packet [] Provided Bible/devotional materials [] Provided toy/stuffed animal, coloring book to patient or family member [] Provided Communion [] Anointing/[place] [] Salvation [x] Completed spiritual assessment [] Other: Impact on Illness or Injury [] Angry [] Fearful [] Anxious [] Often cries [] Exhaustion [] Unable to work [] Unable to attend nondenominational [] Unable to walk/stand [] Unable to read [] Unable to drive [] Unable to eat/drink [] Unable to sleep [] Unable to be with family [] Patient intubated [] Other: Summary patient waiting for further tests Time spent with patient 10 min
--- NOTE | 2020-04-24 09:47 | PC.NURSE ---
pt walked about 50ft with demetris
[2020-04-24] MEDS: oxyCODONE-APAP 10-325 mg Tablet 1 TAB PO (11:07)
--- NOTE | 2020-04-24 11:11 | PC.NURSE ---
Pt has been asking for her pain meds such as oxycodone and tramadol. notified
--- NOTE | 2020-04-24 11:53 | ECG_ITS ---
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 Measurements Intervals [place] Rate: 98 P: 64 AL: 167 QRS: 20 QRSD: 93 T: 91 QT: 343 QTc: 438 Interpretive Statements SINUS RHYTHM WITH OCCASIONAL SUPRAVENTRICULAR PREMATURE COMPLEXES NONSPECIFIC ST & T-WAVE ABNORMALITY Compared to ECG 04/23/2020 12:28:34 T-wave abnormality now present ST (T wave) deviation no longer present Electronically Signed On 04-24-2020 16:34:17 CDT by Liliane Negrete M.D. [id number]
--- NOTE | 2020-04-24 12:15 | PC.NURSE ---
Pt denies any chest pain or chest pressure at this time Nitro drip decreased per protocol.
--- NOTE | 2020-04-24 14:31 | PM.PN ---
Subjective Subjective: Interval history: Patient reports feeling better. Earlier today she had chest pain and during my evaluation still on nitroglycerin drip which controlled her pain well. Still remains tachycardic and hypertensive. Medications further adjusted by Dr. Gibson. Vitals/I&O/Wt Last Vital Signs Temp 98.0 F 04/24/20 10:59 Pulse 109 H 04/24/20 10:59 Resp 17 04/24/20 11:07 BP 148/91 04/24/20 10:59 Pulse Ox 97 04/24/20 11:07 04/23/20 04/24/20 04/24/20 22:59 06:59 14:59 Intake Total 324.05 / 325.425 671.00 / 671.00 Output Total 1000 / 1000 Balance 324.05 / 325.425 -1000 / -674.575 671.00 / 671.00 Weight last 48 hrs Weight 100.153 kg Physical Exam Const: COMMON NORMALS: no acute distress and patient oriented x3 Resp: COMMON NORMALS: normal respiratory effort and clear to auscultation bilaterally AUSCULTATION: clear to auscultation bilaterally Cardio: COMMON NORMALS: regular rate, regular rhythm and S2 normal heart sound present RATE: regular rate RHYTHM: regular rhythm HEART SOUNDS: S2 normal heart sound present OTHER: No lower extremity edema GI: COMMON NORMALS: Normal to inspection, nondistended, normoactive bowel sounds present, Soft to palpation and non-tender PALPATION: Yes Soft to palpation Neuro: COMMON NORMALS: patient oriented x3 and no focal motor deficits Data : 04/22/20 18:55 04/23/20 04:43 A&P Assessment and plan (1) Stented coronary artery: Patient had in-stent stenosis. Status: Acute (2) NSTEMI (non-ST elevated myocardial infarction): Status: Acute Additional A&P Information Alzheimer's dementia: I would hold Namenda for tonight, no acute delirium or exacerbation of her baseline dementia GERD: Continue Protonix 20 mg daily Anxiety/depression: I would hold buspirone, cetirizine, for tonight Diastolic congestive heart failure: BNP 700, clinically looks euvolemic, will hold Lasix for now Full code N.p.o. after midnight DVT prophylaxis not indicated currently I am giving her therapeutic dose of Lovenox PLAN: Continue current monitoring and treatment. Again discussed extensively regarding importance of medical compliance. Patient reports that she sets up her medications for a week and admits that she could possibly miss a day or 2. We have discussed regarding importance of complying especially with Plavix and she voiced understanding. Continue medication adjustments. Attestations Medical Necessity Statement*: Patient with non-ST elevation [place] due to in-stent stenosis continues to have chest pain requiring further inpatient monitoring and treatment including medication adjustments. Time Spent in Patient Care: 16 - 35 minutes Coding Level of Care Code Acute Tool Room Lathe Operator for Caridad Clayton Diagnoses Stented coronary artery Z95.5 NSTEMI (non-ST elevated myocardial infarction) I21.4
--- NOTE | 2020-04-24 16:28 | P.PN_ITS ---
Subjective Subjective: Interval history: He had some chest discomfort yesterday night. It seems to be responding to the IV nitroglycerin. She is somewhat tachycardic and also has an elevated blood pressure. Denies any fever or chills. No cough. Medications: Reviewed: Yes Medication Review Details: Current Medications Acetaminophen (Tylenol) 650 mg PO Q6H PRN PRN Reason: MILD PAIN Al Hydrox/Mg Hydrox/Simethicone (Maalox) 30 ml PO Q15M PRN PRN Reason: INDIGESTION Alprazolam (Xanax) 0.25 mg PO TID PRN PRN Reason: ANXIETY Last Admin: 04/24/20 04:02 Dose: 0.25 mg Documented by: Amlodipine Besylate (Norvasc) 10 mg PO DAILY [facility] Last Admin: 04/24/20 09:02 Dose: 10 mg Documented by: Aspirin (Aspirin Ec) 81 mg PO DAILY [facility] Last Admin: 04/24/20 09:05 Dose: 81 mg Documented by: Atorvastatin Calcium (Lipitor) 80 mg PO DAILY [facility] Last Admin: 04/24/20 09:05 Dose: 80 mg Documented by: Atropine Sulfate (Atropine) 0.5 mg IVP PRN PRN PRN Reason: Symptomatic bradycardia Baclofen (Lioresal) 20 mg PO TID PRN PRN Reason: spasms Buspirone HCl (Buspar) 10 mg PO BID [facility] Last Admin: 04/24/20 09:02 Dose: 10 mg Documented by: Cetirizine HCl (Zyrtec) 5 mg PO DAILY [facility] Last Admin: 04/24/20 09:01 Dose: 5 mg Documented by: Clopidogrel Bisulfate (Plavix) 75 mg PO DAILY [facility] Last Admin: 04/24/20 09:07 Dose: 75 mg Documented by: Donepezil HCl (Aricept) 10 mg PO DAILY [facility] Last Admin: 04/24/20 09:04 Dose: 10 mg Documented by: Enoxaparin Sodium (Lovenox) 40 mg SUBCUT Q24H [facility] Fentanyl (Sublimaze) 50 mcg IVP PRN PRN PRN Reason: Prior to sheath removal Furosemide (Lasix) 20 mg PO DAILY [facility] Last Admin: 04/24/20 09:05 Dose: 20 mg Documented by: Hydrochlorothiazide (Hctz) 6.25 mg PO BID [facility] Last Admin: 04/24/20 09:10 Dose: 6.25 mg Documented by: Nitroglycerin/Dextrose (Nitroglycerin Drip) 50 mg in 250 mls @ 0 mls/hr IV .Q0M [facility]; Protocol Last Titration: 04/24/20 12:00 Dose: 10 mcg/min, 3 mls/hr Documented by: Isosorbide Mononitrate (Imdur) 30 mg PO DAILY [facility] Last Admin: 04/24/20 09:05 Dose: 30 mg Documented by: Lisinopril (Prinivil) 40 mg PO DAILY [facility] Last Admin: 04/24/20 09:07 Dose: 40 mg Documented by: Magnesium Hydroxide (Milk Of Magnesia) 30 ml PO DAILY PRN PRN Reason: CONSTIPATION Memantine (Namenda) 10 mg PO BID [facility] Last Admin: 04/24/20 09:02 Dose: 10 mg Documented by: Metoprolol Succinate (Toprol Xl) 25 mg PO BID [facility] Last Admin: 04/24/20 09:04 Dose: 25 mg Documented by: Naloxone HCl (Narcan) 0.1 mg IVP Q2M PRN PRN Reason: RESPIRATORY RATE < 8/MIN Nitroglycerin (Nitrostat) 0.4 mg SUBLINGUAL Q5M PRN PRN Reason: CHEST PAIN Oxycodone/Acetaminophen (Percocet 10-325 Mg) 1 tab PO Q6H PRN PRN Reason: MODERATE PAIN Last Admin: 04/24/20 11:07 Dose: 1 tab Documented by: Pantoprazole Sodium (Protonix) 40 mg PO DAILY [facility] Last Admin: 04/24/20 09:01 Dose: 40 mg Documented by: Pramipexole Dihydrochloride (Mirapex) 0.125 mg PO BEDTIME [facility] Last Admin: 04/23/20 21:07 Dose: 0.125 mg Documented by: Pramipexole Dihydrochloride (Mirapex) 0.125 mg PO DAILY [facility] Last Admin: 04/24/20 09:02 Dose: 0.125 mg Documented by: Simethicone (Mylicon Tab) 120 mg PO BID PRN PRN Reason: FLATULANCE Temazepam (Restoril) 15 mg PO BEDTIME PRN PRN Reason: INSOMNIA Vitals/I&O/Wt Last Vital Signs Temp 98.6 F 04/24/20 14:54 Pulse 115 H 04/24/20 14:54 Resp 14 04/24/20 14:54 BP 126/77 04/24/20 14:54 Pulse Ox 95 04/24/20 14:54 04/24/20 04/24/20 04/24/20 06:59 14:59 22:59 Intake Total 671.00 / 671.00 Output Total 1000 / 1000 Balance -1000 / -674.575 671.00 / 671.00 Weight last 48 hrs Weight 220 lb 12.8 oz Physical Exam Narrative: EXAM NARRATIVE: GENERAL: The patient is alert and oriented times three. Not in any acute distress. HEENT: No significant pallor, icterus or lymphadenopathy. The fundus is not visualized NECK: Trachea appears to be central. No masses noted. No JVD or thyromegaly appreciated. No carotid bruit. RESPIRATORY: Chest is symmetrical. No intercostals muscle retraction or any accessory muscle activation. There is no chest wall tenderness. Breath sounds are heard bilaterally. No rales or rhonchi heard. No evidence of any consolidation. BREASTS: Deferred. HEART: the PMI was not palpated.. No palpable precordial events. S1 and S2 are normal. No S3 or S4 heard. No pericardial rub or any click heard. ABDOMEN: No vessel pulsations or distention. No tenderness. No organomegaly appreciated. No abdominal bruit. Bowel sounds are normally heard. : Deferred. RECTAL: Deferred. LYMPHATIC: No lymphadenopathy noted in the neck or groin. EXTREMITIES: No edema or cyanosis. No clubbing. The pulses are symmetrical bilaterally. The radial, femoral, dorsalis pedis and the posterior tibial pulses are palpated and found to be in good volume and amplitude. MUSCULOSKELETAL: Gait is normal. There is no joint deformity or swelling noted. No joint tenderness or any effusion. The shoulder and hip joints appear to have normal range of motion. SKIN: There are no significant scars or skin rash noted. NEUROPSYCHIATRIC: The patient is alert and oriented x3. Appears to be in a good mood. The higher functions are grossly within normal limits. No tremors or rigidity noted. Data : 04/25/20 07:30 04/25/20 07:30 A&P Assessment and plan (1) NSTEMI (non-ST elevated myocardial infarction): Patient seems to have some unstable anginal symptoms. Apparently the culprit lesion was very complex for intervention. The artery was of small caliber. I would increase the dose of the isosorbide mononitrate to 60 mg p.o. daily. Taper off with the IV nitroglycerin Status: Acute (2) Atherosclerotic heart disease of [place] coronary artery with unstable angina pectoris: The coronary angiogram findings are as mentioned above. Since there were no other intervenable lesions, the plan is to optimize the medical treatment. Status: Acute Qualifiers: [place] vs. transplanted heart: [place] heart Qualified Code(s): I25.110 - Atherosclerotic heart disease of [place] coronary artery with unstable angina pectoris (3) Hypercholesterolemia: May continue on the current medications. Status: Acute (4) Hypertension: Currently the blood pressure is a stage II. We will try to optimize the medications Status: Acute Qualifiers: Hypertension type: essential hypertension Qualified Code(s): I10 - Essential (primary) hypertension (5) Alzheimer disease: Management as per the primary. Status: Acute Qualifiers: Alzheimer's disease onset: other onset Dementia behavioral disturbance: without behavioral disturbance Qualified Code(s): G30.8 - Other Alzheimer's disease; F02.80 - Dementia in other diseases classified elsewhere without beha vioral disturbance Additional A&P Information We will continue to optimize the antihypertensive and antianginal medications. 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 transplanted heart: [place] heart Hypercholesterolemia E78.00 Hypertension I10 Hypertension type: essential hypertension Alzheimer disease G30.8; F02.80 Alzheimer's disease onset: other onset Dementia behavioral disturbance: without behavioral disturbance
--- NOTE | 2020-04-24 18:13 | PC.NURSE ---
Home med Pt stated that Dr. Gage told her to discontinue Namenda-Memantine since it is not helping her memory problems. Notified Dr. Garcia regarding this and that pt has received the morning dose. Received order to hold off on the evening dose.
--- NOTE | 2020-04-24 18:37 | PC.NURSE ---
Pt denies any chest pain or discomfort Pt stated, I feel good. I think I am on amend. Nitro drip titrated down to 5 mcg/min at this time.
[2020-04-24] MEDS: enoxaparin 40 mg/0.4 mL Syringe SUBCUT (19:52)
--- NOTE | 2020-04-24 20:11 | PC.NURSE ---
Patient states that she is not having any pain at this time. Nitro drip tapered off.
[2020-04-25] VITALS: BP 108/62; PULSE 81; RESP 16; TEMP 36.9; O2SAT 93
[2020-04-25 04:00] VITALS: BP 115/78; PULSE 86; RESP 14; TEMP 37.1; O2SAT 94
[2020-04-25 04:07] VITALS: RESP 15
[2020-04-25] MEDS: oxyCODONE-APAP 10-325 mg Tablet 1 TAB PO (04:07)
[2020-04-25 08:04] LABS: Basophils % 0.2 %; Eosinophils % 0.6 %; Hematocrit 43.1 % (37.0-47.0); Hemoglobin 14.1 g/dL (11.5-15.3); Lymphocytes # 1.4 10^3/uL (0.8-4.8); Lymphocytes % 27.4 %; Mean Corpuscular HGB Conc 32.7 g/dL (30.0-36.0); Mean Corpuscular Hemoglobin 29.1 pg (28.0-34.0); Mean Platelet Volume 11.4 fL (7.4-10.4); Monocytes # 0.5 10^3/uL (0.2-0.9); Monocytes % 9.9 %; Neutrophils % 61.5 %; Nucleated Red Blood Cells % 0 %; Platelet Count 207 10^3/cmm (130-400); Red Blood Count 4.84 10^6/uL (4.1-5.3); Red Cell Distribution Width 12.9 % (12.1-15.1)
[2020-04-25 08:06] LABS: Alanine Aminotransferase 30 U/L (0-33); Albumin Level 4.2 g/dL (3.5-5.2); Alkaline Phosphatase 79 IU/L (35-105); Anion Gap 16.4 (5-19); Aspartate Amino Transferase 99 U/L (0-32); Blood Urea Nitrogen 14 mg/dL (8-23); Calcium 10.4 mg/dL (8.5-10.5); Carbon Dioxide 27 mmol/L (22-29); Chloride 93 mmol/L (98-107); Globulin 2.8 g/dL (1.3-4.6); Glomerular Filtration Rate 99.4 mL/min (90-130); Glucose 169 mg/dL (65-115); Osmolality Calculated 280 mOsm/kg (285-295); Potassium 3.4 mmol/L (3.5-5.1); Sodium 133 mmol/L (136-145); Total Bilirubin 0.6 mg/dL (0.15-1.2)
[2020-04-25] MEDS: amlodipine 10 mg Tablet PO (09:14)
[2020-04-25] MEDS: BuSPIRONE 10 mg Tablet PO (09:14)
[2020-04-25] MEDS: donepezil 5 MG Tablet 10 MG PO (09:14)
[2020-04-25] MEDS: memantine 5 mg tablet 10 MG PO (09:14)
[2020-04-25] MEDS: aspirin 81 mg EC Tablet PO (09:16)
[2020-04-25] MEDS: lisinopril 20 mg Tablet 40 MG PO (09:16)
[2020-04-25] MEDS: cetirizine 10 mg Tablet 5 MG PO (09:16)
[2020-04-25] MEDS: hydroCHLOROthiazide 25 mg Tablet 6.25 MG PO (09:16)
[2020-04-25] MEDS: atorvastatin 40 mg Tablet 80 MG PO (09:16)
[2020-04-25] MEDS: clopidogrel 75 mg Tablet PO (09:18)
[2020-04-25] MEDS: isosorbide mononitrate ER 60 mg Tablet PO (09:18)
[2020-04-25] MEDS: pantoprazole DR 40 mg Tablet PO (09:18)
[2020-04-25] MEDS: metoprolol succinate ER (24 HR) 50 mg Tablet 25 MG PO (09:18)
[2020-04-25] MEDS: FUROsemide 20 mg Tablet PO (09:18)
[2020-04-25] MEDS: pramipexole 0.25 mg Tablet 0.125 MG PO (09:19)
[2020-04-25 10:18] VITALS: BP 118/58; PULSE 86; RESP 18; TEMP 36.5; O2SAT 93
--- NOTE | 2020-04-25 10:28 | PM.DCS ---
Discharge Providers Date of Admission: 04/22/20 21:15 Date of Discharge: April 25, 2020 Attending Provider at Admission: Abigail Agarwal MD Attending Provider at Discharge: Washington Garcia MD Primary Care Provider: Jorge Styles Diagnoses at Discharge Discharge Diagnosis (1) NSTEMI (non-ST elevated myocardial infarction): Status: Acute (2) Atherosclerotic heart disease of [place] coronary artery with unstable angina pectoris: Status: Acute Qualifiers: [place] vs. transplanted heart: [place] heart Qualified Code(s): I25.110 - Atherosclerotic heart disease of [place] coronary artery with unstable angina pectoris (3) Hypercholesterolemia: Status: Acute (4) Hypertension: Status: Acute Qualifiers: Hypertension type: essential hypertension Qualified Code(s): I10 - Essential (primary) hypertension (5) Alzheimer disease: Status: Acute Qualifiers: Alzheimer's disease onset: other onset Dementia behavioral disturbance: without behavioral disturbance Qualified Code(s): G30.8 - Other Alzheimer's disease; F02.80 - Dementia in other diseases classified elsewhere without behavioral disturbance Reason for Visit Reason for Visit: CHEST PAIN; STENTS LAST THURSDAY Hospital Course Discharge Summary: Patient presented with chest pain and diagnosed with acute non-ST elevation AR and was further evaluated with coronary angiography. Unfortunately patient had in-stent thrombosis after recent intervention. Medical noncompliance was suspected and I had extensive discussion with patient regarding importance of taking her medications as prescribed. Patient voiced understanding. Reports that she will make sure she is not going to skip any doses especially Plavix. This was also communicated to patient's . This morning patient denies any shortness of breath or chest pain. Reports that she had good night sleep. She denies paroxysmal nocturnal dyspnea or orthopnea. Denies lower extremity swelling. Her medications were readjusted and Imdur was increased. Patient was seen by Dr. Gibson this morning and felt safe from cardiac standpoint to be dismissed home. Physical Exam Const: COMMON NORMALS: no acute distress and patient oriented x3 Resp: COMMON NORMALS: normal respiratory effort and clear to auscultation bilaterally AUSCULTATION: clear to auscultation bilaterally Cardio: COMMON NORMALS: regular rate, regular rhythm and S2 normal heart sound present RATE: regular rate RHYTHM: regular rhythm HEART SOUNDS: S2 normal heart sound present OTHER: No lower extremity edema GI: COMMON NORMALS: Normal to inspection, nondistended, normoactive bowel sounds present, Soft to palpation and non-tender PALPATION: Yes Soft to palpation Neuro: COMMON NORMALS: patient oriented x3 and no focal motor deficits Discharge Data Data Completed and Pending: Completed Studies During Hospitalization Category Date Time Status XR chest 1[place] [id number] Stat Exams 04/22/20 18:51 Completed CV echo lmt wo/w contras [id number] Rout ine Ultrasound 04/23/20 12:41 Completed US/CV paperwork R outine Ultrasound 04/23/20 13:37 Completed Pending at discharge Category Date Time Status 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 Routin e Exams 04/23/20 10:22 Taken Labs from last 24 hours 04/25/20 04/25/20 07:30 07:30 WBC 5.0 RBC 4.84 Hgb 14.1 Hct 43.1 MCV 89.0 MCH 29.1 MCHC 32.7 RDW 12.9 Plt Count 207 MPV 11.4 H Neut % (Auto) 61.5 Lymph % (Auto) 27.4 [place] % (Auto) 9.9 Eos % (Auto) 0.6 Baso % (Auto) 0.2 Neut # (Auto) 3.10 Lymph # (Auto) 1.4 [place] # (Auto) 0.5 Eos # (Auto) 0.0 Baso # (Auto) 0.0 Nucleated RBC % (a uto) 0 Nucleated RBCs # 0.0 Sodium 133 L Potassium 3.4 L Chloride 93 L Carbon Dioxide 27 Anion Gap 16.4 BUN 14 Creatinine 0.6 GFR Calculation 99.4 Glucose 169 H Calculated Osmolal ity 280 L Calcium 10.4 Total Bilirubin 0.6 AST 99 H ALT 30 Alkaline Phosphata se 79 Total Protein 7.0 Albumin 4.2 Globulin 2.8 Vitals: Last Vital Signs Temp 97.7 F 04/25/20 10:18 Pulse 86 04/25/20 10:18 Resp 18 04/25/20 10:18 BP 118/58 04/25/20 10:18 Pulse Ox 93 04/25/20 10:18 Discharge Plan Discharge Patient Disposition: Home Condition: Stable Prescriptions: New aspirin 81 mg Tablet,Delayed Release (Dr/Ec) 81 mg PO DAILY Qty: 30 RF: 0 nitroglycerin 0.4 mg Tablet, Sublingual 0.4 mg sublingual Q5M PRN (Reason: Chest Pain) Qty: 25 RF: 0 Continued simethicone [Gas-X Extra Strength] 125 mg tablet,chewable 125 mg PO BID PRN (Reason: FLATULANCE) RF: 0 amlodipine 10 mg tablet 10 mg PO DAILY RF: 0 Hold Instructions: Resume on 04/27/20. buspirone 10 mg tablet 10 mg PO BID RF: 0 cetirizine 10 mg tablet 5 mg PO DAILY RF: 0 donepezil 10 mg tablet 10 mg PO DAILY RF: 0 lisinopril 40 mg tablet 40 mg PO DAILY RF: 0 omeprazole 20 mg capsule,delayed release(DR/EC) 20 mg PO DAILY RF: 0 pramipexole 0.125 mg tablet 0.125 mg PO DAILY RF: 0 atorvastatin 80 mg tablet 80 mg PO DAILY RF: 0 memantine [Namenda] 10 mg tablet 10 mg PO BID Qty: 180 RF: 1 metoprolol segura-hydrochlorothiaz 50-12.5 mg tablet extended release 24 hr 0.5 tab PO BID RF: 0 furosemide [Lasix] 20 mg tablet 20 mg PO DAILY RF: 0 oxycodone-acetaminophen [Percocet] 10-325 mg tablet 1 tab PO TID PRN (Reason: pain) 30 Days Qty: 90 RF: 0 tramadol 50 mg tablet 100 mg PO TID PRN (Reason: pain) 30 Days Qty: 180 RF: 1 baclofen 20 mg tablet 20 mg PO TID PRN (Reason: spasms) 90 Days Qty: 270 RF: 0 clopidogrel 75 mg Tablet 75 mg PO DAILY 30 Days Qty: 30 RF: 0 Changed isosorbide mononitrate 30 mg Tablet Extended Release 24 Hr 60 mg PO DAILY Qty: 60 RF: 0 Discontinued aspirin [Aspir-81] 81 mg tablet,delayed release (DR/EC) 81 mg PO DAILY RF: 0 Discharge Orders: Discharge Order (Routine); Ordered 04/25/20 Ordered By: Washington Garcia Referrals: Jorge Styles [Primary Care Provider] - 4-7 days Axel Gibson MD [Physician] - 2 weeks Discharge Diet: Advance as tolerated Discharge Activity: Increase activity as tolerated Activity Restrictions/Additional Instructions: Please call your doctor or present to emergency department if your condition worsens or you develop diarrhea, lightheadedness, fatigue or see blood in your stool or black stool. Please keep blood pressure and heart rate log 3 times daily to present to primary care physician next visit for medication adjustment. Please make sure you comply with with medical treatment and take your medications as prescribed especially Plavix as we have discussed. Please make sure you do not skip any dose of your cardiac medications. 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 transplanted heart: [place] heart Hypercholesterolemia E78.00 Hypertension I10 Hypertension type: essential hypertension Alzheimer disease G30.8; F02.80 Alzheimer's disease onset: other onset Dementia behavioral disturbance: without behavioral disturbance
[2020-04-25] MEDS: potassium chloride ER 10 mEq Tablet 40 MEQ PO (10:45)
[2020-04-25 11:08] VITALS: BP 118/58; PULSE 86; RESP 18; TEMP 36.5; O2SAT 93
--- NOTE | 2020-04-25 11:11 | PM.PN ---
Subjective Subjective: Interval history: Patient is feeling better with no recurrence of chest pain. She has been ambulating on telemetry with no specific complaints. Her vital signs are stable. No significant arrhythmias on the monitor. Medications: Reviewed: Yes Medication Review Details: Current Medications Al Hydrox/Mg Hydrox/Simethicone (Maalox) 30 ml PO Q15M PRN PRN Reason: INDIGESTION Alprazolam (Xanax) 0.25 mg PO TID PRN PRN Reason: ANXIETY Last Admin: 04/24/20 19:52 Dose: 0.25 mg Documented by: Amlodipine Besylate (Norvasc) 10 mg PO DAILY COUNT INCLUDES THE [facility] Last Admin: 04/25/20 09:14 Dose: 10 mg Documented by: Aspirin (Aspirin Ec) 81 mg PO DAILY COUNT INCLUDES THE [facility] Last Admin: 04/25/20 09:16 Dose: 81 mg Documented by: Atorvastatin Calcium (Lipitor) 80 mg PO DAILY COUNT INCLUDES THE [facility] Last Admin: 04/25/20 09:16 Dose: 80 mg Documented by: Atropine Sulfate (Atropine) 0.5 mg IVP PRN PRN PRN Reason: Symptomatic bradycardia Baclofen (Lioresal) 20 mg PO TID PRN PRN Reason: spasms Buspirone HCl (Buspar) 10 mg PO BID COUNT INCLUDES THE [facility] Last Admin: 04/25/20 09:14 Dose: 10 mg Documented by: Cetirizine HCl (Zyrtec) 5 mg PO DAILY COUNT INCLUDES THE [facility] Last Admin: 04/25/20 09:16 Dose: 5 mg Documented by: Clopidogrel Bisulfate (Plavix) 75 mg PO DAILY COUNT INCLUDES THE [facility] Last Admin: 04/25/20 09:18 Dose: 75 mg Documented by: Donepezil HCl (Aricept) 10 mg PO DAILY COUNT INCLUDES THE [facility] Last Admin: 04/25/20 09:14 Dose: 10 mg Documented by: Enoxaparin Sodium (Lovenox) 40 mg SUBCUT Q24H COUNT INCLUDES THE [facility] Last Admin: 04/24/20 19:52 Dose: 40 mg Documented by: Fentanyl (Sublimaze) 50 mcg IVP PRN PRN PRN Reason: Prior to sheath removal Furosemide (Lasix) 20 mg PO DAILY COUNT INCLUDES THE [facility] Last Admin: 04/25/20 09:18 Dose: 20 mg Documented by: Hydrochlorothiazide (Hctz) 6.25 mg PO BID COUNT INCLUDES THE [facility] Last Admin: 04/25/20 09:16 Dose: 6.25 mg Documented by: Nitroglycerin/Dextrose (Nitroglycerin Drip) 50 mg in 250 mls @ 0 mls/hr IV .Q0M COUNT INCLUDES THE [facility]; Protocol Last Titration: 04/24/20 19:46 Dose: 0 mcg/min, 0 mls/hr Documented by: Isosorbide Mononitrate (Imdur) 60 mg PO DAILY COUNT INCLUDES THE [facility] Last Admin: 04/25/20 09:18 Dose: 60 mg Documented by: Lisinopril (Prinivil) 40 mg PO DAILY COUNT INCLUDES THE [facility] Last Admin: 04/25/20 09:16 Dose: 40 mg Documented by: Magnesium Hydroxide (Milk Of Magnesia) 30 ml PO DAILY PRN PRN Reason: CONSTIPATION Memantine (Namenda) 10 mg PO BID COUNT INCLUDES THE [facility] Last Admin: 04/25/20 09:14 Dose: 10 mg Documented by: Metoprolol Tartrate (Lopressor) 25 mg PO BID COUNT INCLUDES THE [facility] Naloxone HCl (Narcan) 0.1 mg IVP Q2M PRN PRN Reason: RESPIRATORY RATE < 8/MIN Nitroglycerin (Nitrostat) 0.4 mg SUBLINGUAL Q5M PRN PRN Reason: CHEST PAIN Oxycodone/Acetaminophen (Percocet 10-325 Mg) 1 tab PO Q6H PRN PRN Reason: MODERATE PAIN Last Admin: 04/25/20 04:07 Dose: 1 tab Documented by: Pantoprazole Sodium (Protonix) 40 mg PO DAILY COUNT INCLUDES THE [facility] Last Admin: 04/25/20 09:18 Dose: 40 mg Documented by: Pramipexole Dihydrochloride (Mirapex) 0.125 mg PO BEDTIME COUNT INCLUDES THE [facility] Last Admin: 04/24/20 19:52 Dose: 0.125 mg Documented by: Pramipexole Dihydrochloride (Mirapex) 0.125 mg PO DAILY COUNT INCLUDES THE [facility] Last Admin: 04/25/20 09:19 Dose: 0.125 mg Documented by: Simethicone (Mylicon Tab) 120 mg PO BID PRN PRN Reason: FLATULANCE Temazepam (Restoril) 15 mg PO BEDTIME PRN PRN Reason: INSOMNIA Vitals/I&O/Wt Last Vital Signs Temp 97.7 F 04/25/20 11:08 Pulse 86 04/25/20 11:08 Resp 18 04/25/20 11:08 BP 118/58 04/25/20 11:08 Pulse Ox 93 04/25/20 11:08 04/24/20 04/25/20 04/25/20 22:59 06:59 14:59 Intake Total 141.5 / 812.50 400 / 1212.50 Balance 141.5 / 812.50 400 / 1212.50 Physical Exam Narrative: EXAM NARRATIVE: GENERAL: The patient is alert and oriented times three. Not in any acute distress. HEENT: No significant pallor, icterus or lymphadenopathy. The fundus is not visualized NECK: Trachea appears to be central. No masses noted. No JVD or thyromegaly appreciated. No carotid bruit. RESPIRATORY: Chest is symmetrical. No intercostals muscle retraction or any accessory muscle activation. There is no chest wall tenderness. Breath sounds are heard bilaterally. No rales or rhonchi heard. No evidence of any consolidation. BREASTS: Deferred. HEART: the PMI was not palpated.. No palpable precordial events. S1 and S2 are normal. No S3 or S4 heard. No pericardial rub or any click heard. ABDOMEN: No vessel pulsations or distention. No tenderness. No organomegaly appreciated. No abdominal bruit. Bowel sounds are normally heard. : Deferred. RECTAL: Deferred. LYMPHATIC: No lymphadenopathy noted in the neck or groin. EXTREMITIES: No edema or cyanosis. No clubbing. The pulses are symmetrical bilaterally. The radial, femoral, dorsalis pedis and the posterior tibial pulses are palpated and found to be in good volume and amplitude. MUSCULOSKELETAL: Gait is normal. There is no joint deformity or swelling noted. No joint tenderness or any effusion. The shoulder and hip joints appear to have normal range of motion. SKIN: There are no significant scars or skin rash noted. NEUROPSYCHIATRIC: The patient is alert and oriented x3. Appears to be in a good mood. The higher functions are grossly within normal limits. No tremors or rigidity noted. Data : 04/25/20 07:30 04/25/20 07:30 Other Labs: Laboratory Last Values WBC 5.0 10^3/uL (4.0-10.0) 04/25/20 07:30 RBC 4.84 10^6/uL (4.1-5.3) 04/25/20 07:30 Hgb 14.1 g/dL (11.5-15.3) 04/25/20 07:30 Hct 43.1 % (37.0-47.0) 04/25/20 07:30 MCV 89.0 fL (81-99) 04/25/20 07:30 MCH 29.1 pg (28.0-34.0) 04/25/20 07:30 MCHC 32.7 g/dL (30.0-36.0) 04/25/20 07:30 RDW 12.9 % (12.1-15.1) 04/25/20 07:30 Plt Count 207 10^3/cmm (130-400) 04/25/20 07:30 MPV 11.4 fL (7.4-10.4) H 04/25/20 07:30 Neut % (Auto) 61.5 % 04/25/20 07:30 Lymph % (Auto) 27.4 % 04/25/20 07:30 [place] % (Auto) 9.9 % 04/25/20 07:30 Eos % (Auto) 0.6 % 04/25/20 07:30 Baso % (Auto) 0.2 % 04/25/20 07:30 Neut # (Auto) 3.10 10^3/uL (1.8-7.7) 04/25/20 07:30 Lymph # (Auto) 1.4 10^3/uL (0.8-4.8) 04/25/20 07:30 [place] # (Auto) 0.5 10^3/uL (0.2-0.9) 04/25/20 07:30 Eos # (Auto) 0.0 10^3/uL (0.0-0.8) 04/25/20 07:30 Baso # (Auto) 0.0 10^3/uL (0.0-0.1) 04/25/20 07:30 Nucleated RBC % (auto) 0 % 04/25/20 07:30 Nucleated RBCs # 0.0 /100WBC 04/25/20 07:30 PT 12.20 SECONDS (12.1-14.9) 04/22/20 18:55 INR 0.88 (0.8-1.2) 04/22/20 18:55 APTT 36.8 SECONDS (23.9-36.7) H 04/23/20 17:27 Sodium 133 mmol/L (136-145) L 04/25/20 07:30 Potassium 3.4 mmol/L (3.5-5.1) L 04/25/20 07:30 Chloride 93 mmol/L (98-107) L 04/25/20 07:30 Carbon Dioxide 27 mmol/L (22-29) 04/25/20 07:30 Anion Gap 16.4 (5-19) 04/25/20 07:30 BUN 14 mg/dL (8-23) 04/25/20 07:30 Creatinine 0.6 mg/dL (0.5-0.9) 04/25/20 07:30 GFR Calculation 99.4 mL/min (90-130) 04/25/20 07:30 Glucose 169 mg/dL (65-115) H 04/25/20 07:30 Calculated Osmolality 280 mOsm/kg (285-295) L 04/25/20 07:30 Calcium 10.4 mg/dL (8.5-10.5) 04/25/20 07:30 Total Bilirubin 0.6 mg/dL (0.15-1.2) 04/25/20 07:30 AST 99 U/L (0-32) H 04/25/20 07:30 ALT 30 U/L (0-33) 04/25/20 07:30 Alkaline Phosphatase 79 IU/L (35-105) 04/25/20 07:30 Creatine Kinase 210 U/L (26-192) H 04/22/20 18:55 Troponin T Baseline 1556 ng/L (0-10) H* 04/22/20 18:55 Troponin T 120 Minute 1826 ng/L (0-10) H 04/22/20 21:15 Delta Troponin T 270 ABS# (0-10) H* 04/22/20 21:15 Troponin T Hi Sens 6Hr 1690 ng/L (0-10) H 04/23/20 01:05 Troponin T Hi Sens 6Hr Delta 134 ng/L (0-12) H* 04/23/20 01:05 NT-Pro-B Natriuret Pep 778 pg/mL (0-125) H 04/22/20 18:55 Total Protein 7.0 g/dL (6.6-8.7) 04/25/20 07:30 Albumin 4.2 g/dL (3.5-5.2) 04/25/20 07:30 Globulin 2.8 g/dL (1.3-4.6) 04/25/20 07:30 A&P Assessment and plan (1) NSTEMI (non-ST elevated myocardial infarction): Patient's chest pain he is responding to the medication. Currently she has no chest pain. May continue on the current medication. Status: Acute (2) Atherosclerotic heart disease of [place] coronary artery with unstable angina pectoris: The coronary angiogram findings are as mentioned above. Since there were no other intervenable lesions, the plan is to optimize the medical treatment. Status: Acute Qualifiers: [place] vs. transplanted heart: [place] heart Qualified Code(s): I25.110 - Atherosclerotic heart disease of [place] coronary artery with unstable angina pectoris (3) Hypercholesterolemia: May continue on the current medications. Status: Acute (4) Hypertension: Since the blood pressure is under control, may continue on the current medications. Status: Acute Qualifiers: Hypertension type: essential hypertension Qualified Code(s): I10 - Essential (primary) hypertension (5) Alzheimer disease: Management as per the primary. Status: Acute Qualifiers: Alzheimer's disease onset: other onset Dementia behavioral disturbance: without behavioral disturbance Qualified Code(s): G30.8 - Other Alzheimer's disease; F02.80 - Dementia in other diseases classified elsewhere without behavioral disturbance Additional A&P Information If the patient continues remain stable, may be discharged home from a cardiac standpoint. I may see her in the office in a month, as per patient's request. Will be seen by the nurse practitioner at the heart care services in 1 week. Attestations Medical Necessity Statement*: Possible discharge home today Coding Level of Care Code Acute Exercise Physiology Professor for [facility] Fwd Diagnoses NSTEMI (non-ST elevated myocardial infarction) I21.4 Atherosclerotic heart disease of [place] coronary artery with unstable angina pectoris I25.110 [place] vs. transplanted heart: [place] heart Hypercholesterolemia E78.00 Hypertension I10 Hypertension type: essential hypertension Alzheimer disease G30.8; F02.80 Alzheimer's disease onset: other onset Dementia behavioral disturbance: without behavioral disturbance
--- NOTE | 2020-04-25 11:15 | DCPLANNER ---
IMM completed on 04/25/2020 @ 1054. Copy of rights given to pt.
[2020-04-25 12:00] VITALS: BP 102/65; PULSE 18; RESP 18; TEMP 36.8; O2SAT 98
== END 2020-04-25 12:38 | disposition home or self-care (01) | DRG 250 ==
LOC: ER 20:53 → CSU 04-23 03:51
PROVIDERS: Emergency Medicine; Internal Medicine; Internal Medicine Cardiovascular Disease; Admitting Provider Internal Medicine; PCP Family Medicine; Visit Provider Internal Medicine
PROC: 02703ZZ Dilation of Coronary Artery, One Artery, Percutaneous Approach (ICD-10-PCS; principal; 2020-04-23 10:00)
DX: T82.857A Stenosis of other cardiac prosthetic devices, implants and grafts, initial encounter (principal); I21.4 Non-ST elevation (NSTEMI) myocardial infarction; I25.110 Atherosclerotic heart disease of native coronary artery with unstable angina pectoris; G30.9 Alzheimer's disease, unspecified; F02.80 Dementia in other diseases classified elsewhere, unspecified severity, without behavioral disturbance, psychotic disturbance, mood disturbance, and anxiety; I10 Essential (primary) hypertension; E78.00 Pure hypercholesterolemia, unspecified; Y65.8 Other specified misadventures during surgical and medical care; Y92.009 Unspecified place in unspecified non-institutional (private) residence as the place of occurrence of the external cause; Z79.02 Long term (current) use of antithrombotics/antiplatelets; Z79.82 Long term (current) use of aspirin
CPT/HCPCS: 12345; 36415; 71045; 80048; 80053; 82550; 83880; 84484; 85025; 85610; 85730; 90471; 90686; 92920; 93005; 96372; 96375; 99283; C1725; C1769; C1887; C1894; C8924; J1644; J1650; J2250; J2270; J2405; J3010; J3490; J7030; Q9956; Q9967

== ENCOUNTER → 2020-05-02 12:20 | Outpatient (BNVA) | payer MEDICARE, SELFPAY | PROVIDERS: PCP Family Medicine; Visit Provider Nurse Practitioner Family | DX: I25.110 Atherosclerotic heart disease of native coronary artery with unstable angina pectoris (principal) | CPT/HCPCS: 80048 ==

== ENCOUNTER → 2020-06-08 13:27 | Outpatient (BNVA) | payer MEDICARE, SELFPAY | PROVIDERS: PCP Family Medicine; Visit Provider Anesthesiology | DX: M51.16 Intervertebral disc disorders with radiculopathy, lumbar region (principal); M51.17 Intervertebral disc disorders with radiculopathy, lumbosacral region; M43.17 Spondylolisthesis, lumbosacral region; M47.816 Spondylosis without myelopathy or radiculopathy, lumbar region; M54.9 Dorsalgia, unspecified; Z79.891 Long term (current) use of opiate analgesic | CPT/HCPCS: 99213; 99214 ==

== ENCOUNTER → 2020-08-10 13:19 | Outpatient (BNVA) | payer MEDICARE, SELFPAY | PROVIDERS: PCP General Practice; Visit Provider Nurse Practitioner | DX: M51.17 Intervertebral disc disorders with radiculopathy, lumbosacral region (principal); M43.17 Spondylolisthesis, lumbosacral region; M51.16 Intervertebral disc disorders with radiculopathy, lumbar region; M47.816 Spondylosis without myelopathy or radiculopathy, lumbar region; M54.9 Dorsalgia, unspecified; Z79.891 Long term (current) use of opiate analgesic | CPT/HCPCS: 99213; 99214 ==

== ENCOUNTER → 2020-09-13 10:24 | Outpatient (BNVA) | payer MEDICARE, SELFPAY | PROVIDERS: PCP General Practice; Visit Provider Anesthesiology | DX: M51.16 Intervertebral disc disorders with radiculopathy, lumbar region (principal); M51.17 Intervertebral disc disorders with radiculopathy, lumbosacral region; M43.17 Spondylolisthesis, lumbosacral region; M47.816 Spondylosis without myelopathy or radiculopathy, lumbar region; M54.9 Dorsalgia, unspecified; Z79.891 Long term (current) use of opiate analgesic | CPT/HCPCS: 99213 ==

== ENCOUNTER → 2020-11-07 13:01 | Outpatient (BNVA) | payer MEDICARE, SELFPAY | PROVIDERS: PCP General Practice; Visit Provider Anesthesiology | DX: M51.16 Intervertebral disc disorders with radiculopathy, lumbar region (principal); M51.17 Intervertebral disc disorders with radiculopathy, lumbosacral region; M43.17 Spondylolisthesis, lumbosacral region; M47.816 Spondylosis without myelopathy or radiculopathy, lumbar region; M54.9 Dorsalgia, unspecified; Z79.891 Long term (current) use of opiate analgesic | CPT/HCPCS: 99213 ==

== ENCOUNTER → 2021-01-03 10:27 | Outpatient (BNVA) | payer MEDICARE, SELFPAY | PROVIDERS: PCP General Practice; Visit Provider Nurse Practitioner | DX: M51.16 Intervertebral disc disorders with radiculopathy, lumbar region (principal); M51.17 Intervertebral disc disorders with radiculopathy, lumbosacral region; M47.816 Spondylosis without myelopathy or radiculopathy, lumbar region; M43.17 Spondylolisthesis, lumbosacral region; M54.9 Dorsalgia, unspecified; M46.1 Sacroiliitis, not elsewhere classified; Z79.891 Long term (current) use of opiate analgesic | CPT/HCPCS: 99213; 99214 ==

== ENCOUNTER 2021-01-14 13:33 | Outpatient (CLI) | payer MEDICARE, SELFPAY ==
--- NOTE | 2021-01-14 13:53 | XRR_ITS ---
PROCEDURE INFORMATION: Exam: XR Thoracic Spine Exam date and time: 01/14/2021 2:09 PM Age: 70 years old Clinical indication: Injury or trauma; Fall; Blunt trauma (contusions or hematomas); Injury details: Loss of balance, fell about a month ago, upper back pain TECHNIQUE: Imaging protocol: XR of the thoracic spine. Views: 3 views. COMPARISON: CR XR chest 1V portable [id number] 04/22/2020 7:12 PM FINDINGS: Bones/joints: Mild multilevel DJD of the thoracic spine. The vertebral body heights are intact without compression deformity/fracture. Normal alignment of the thoracic spine. Please note, some of the upper thoracic vertebral bodies are suboptimally visualized on lateral view secondary to overlying osseous structures and positioning. Soft tissues: Unremarkable. Vasculature: Aortic wall calcifications noted. XR/XR thoracic spine 3V* [id number] IMPRESSION: No acute findings.
== END 2021-01-14 13:34 | disposition home or self-care (01) ==
PROVIDERS: PCP General Practice; Visit Provider Nurse Practitioner
DX: G30.9 Alzheimer's disease, unspecified (principal); F02.80 Dementia in other diseases classified elsewhere, unspecified severity, without behavioral disturbance, psychotic disturbance, mood disturbance, and anxiety; M51.17 Intervertebral disc disorders with radiculopathy, lumbosacral region; Z87.891 Personal history of nicotine dependence
CPT/HCPCS: 72072; 96116; 99214

== ENCOUNTER → 2021-02-27 11:11 | Outpatient (BNVA) | payer MEDICARE, SELFPAY | PROVIDERS: PCP General Practice; Visit Provider Anesthesiology | DX: M51.16 Intervertebral disc disorders with radiculopathy, lumbar region (principal); M51.17 Intervertebral disc disorders with radiculopathy, lumbosacral region; M43.17 Spondylolisthesis, lumbosacral region; M47.816 Spondylosis without myelopathy or radiculopathy, lumbar region; Z79.891 Long term (current) use of opiate analgesic | CPT/HCPCS: 99213 ==

== ENCOUNTER → 2021-05-09 10:31 | Outpatient (BNVA) | payer MEDICARE, SELFPAY | PROVIDERS: PCP Registered Nurse; Visit Provider Anesthesiology | DX: M43.17 Spondylolisthesis, lumbosacral region (principal); M51.17 Intervertebral disc disorders with radiculopathy, lumbosacral region; M51.16 Intervertebral disc disorders with radiculopathy, lumbar region; Z79.891 Long term (current) use of opiate analgesic | CPT/HCPCS: 99213 ==

== ENCOUNTER → 2021-05-23 16:15 | Outpatient (BNVA) | payer MEDICARE, SELFPAY | PROVIDERS: PCP Registered Nurse; Visit Provider Nurse Practitioner Family | DX: M79.669 Pain in unspecified lower leg (principal); S89.91XA Unspecified injury of right lower leg, initial encounter; X58.XXXA Exposure to other specified factors, initial encounter | CPT/HCPCS: 73590 ==

== ENCOUNTER → 2021-07-11 12:56 | Outpatient (BNVA) | payer MEDICARE, SELFPAY | PROVIDERS: PCP Registered Nurse; Visit Provider Anesthesiology | DX: M51.16 Intervertebral disc disorders with radiculopathy, lumbar region (principal); M47.816 Spondylosis without myelopathy or radiculopathy, lumbar region; M51.17 Intervertebral disc disorders with radiculopathy, lumbosacral region; M43.17 Spondylolisthesis, lumbosacral region; Z79.891 Long term (current) use of opiate analgesic | CPT/HCPCS: 99213 ==

== ENCOUNTER 2021-08-27 06:00 | Outpatient (RCR) | payer MEDICARE, SELFPAY | END 2021-09-02 23:59 | disposition home or self-care (01) | LOC: WPT 06:00 | PROVIDERS: PCP Registered Nurse; Referring Provider General Practice; Visit Provider General Practice | DX: G89.4 Chronic pain syndrome (principal); R26.9 Unspecified abnormalities of gait and mobility; M51.36 Other intervertebral disc degeneration, lumbar region; M47.27 Other spondylosis with radiculopathy, lumbosacral region; Z79.891 Long term (current) use of opiate analgesic; M15.9 Polyosteoarthritis, unspecified; G30.9 Alzheimer's disease, unspecified | CPT/HCPCS: 97110; 97162; 97530 ==

== ENCOUNTER 2021-09-03 06:00 | Outpatient (RCR) | payer MEDICARE, SELFPAY | END 2021-10-03 23:59 | disposition home or self-care (01) | LOC: WPT 06:00 | PROVIDERS: PCP Registered Nurse; Referring Provider General Practice; Visit Provider General Practice | DX: G89.4 Chronic pain syndrome (principal); R26.9 Unspecified abnormalities of gait and mobility; M51.36 Other intervertebral disc degeneration, lumbar region; M47.27 Other spondylosis with radiculopathy, lumbosacral region; Z79.891 Long term (current) use of opiate analgesic; M15.9 Polyosteoarthritis, unspecified; G30.9 Alzheimer's disease, unspecified | CPT/HCPCS: 97110; 97530 ==

== ENCOUNTER 2021-10-04 06:00 | Outpatient (RCR) | payer MEDICARE, SELFPAY | END 2021-11-02 23:59 | disposition home or self-care (01) | LOC: WPT 06:00 | PROVIDERS: PCP Registered Nurse; Referring Provider General Practice; Visit Provider General Practice | DX: G89.4 Chronic pain syndrome (principal); R26.9 Unspecified abnormalities of gait and mobility; M51.36 Other intervertebral disc degeneration, lumbar region; M47.27 Other spondylosis with radiculopathy, lumbosacral region; M15.9 Polyosteoarthritis, unspecified; G30.9 Alzheimer's disease, unspecified | CPT/HCPCS: 97110; 97112; 97530 ==

== ENCOUNTER 2021-11-03 06:00 | Outpatient (RCR) | payer MEDICARE, SELFPAY | END 2021-11-28 10:39 | disposition home or self-care (01) | LOC: WPT 06:00 | PROVIDERS: PCP Registered Nurse; Referring Provider General Practice; Visit Provider General Practice | DX: R26.9 Unspecified abnormalities of gait and mobility (principal); G89.4 Chronic pain syndrome; M51.36 Other intervertebral disc degeneration, lumbar region; M47.27 Other spondylosis with radiculopathy, lumbosacral region; Z79.891 Long term (current) use of opiate analgesic; M15.9 Polyosteoarthritis, unspecified; G30.9 Alzheimer's disease, unspecified; F02.80 Dementia in other diseases classified elsewhere, unspecified severity, without behavioral disturbance, psychotic disturbance, mood disturbance, and anxiety | CPT/HCPCS: 97110; 97112 ==

== ENCOUNTER → 2022-01-13 14:01 | Outpatient (BNVA) | payer MEDICARE, SELFPAY | PROVIDERS: PCP Registered Nurse; Visit Provider Specialist | DX: G30.9 Alzheimer's disease, unspecified (principal); F02.80 Dementia in other diseases classified elsewhere, unspecified severity, without behavioral disturbance, psychotic disturbance, mood disturbance, and anxiety; F41.8 Other specified anxiety disorders | CPT/HCPCS: 96116; 99214 ==

== ENCOUNTER → 2022-02-24 13:55 | Outpatient (BNVA) | payer MEDICARE, SELFPAY | PROVIDERS: PCP Registered Nurse; Visit Provider Internal Medicine Cardiovascular Disease | DX: I25.110 Atherosclerotic heart disease of native coronary artery with unstable angina pectoris (principal); I11.0 Hypertensive heart disease with heart failure; I50.31 Acute diastolic (congestive) heart failure; E78.00 Pure hypercholesterolemia, unspecified; G30.9 Alzheimer's disease, unspecified; F02.80 Dementia in other diseases classified elsewhere, unspecified severity, without behavioral disturbance, psychotic disturbance, mood disturbance, and anxiety; Z87.891 Personal history of nicotine dependence | CPT/HCPCS: 99214 ==

== ENCOUNTER 2022-05-16 15:02 | Outpatient (CLI) | payer MEDICARE, SELFPAY ==
--- NOTE | 2022-05-16 15:08 | MM_ITS ---
WS: [id number] BILATERAL 3D TOMOSYNTHESIS DIGITAL SCREENING MAMMOGRAM WITH CAD CLINICAL INFORMATION: SCREENING HISTORY: Screening mammogram. No current complaints. COMPARISON: 2019 TECHNIQUE: Bilateral CC and MLO views. FINDINGS: Fatty-replaced breasts bilaterally. No suspicious focal mass, asymmetry, calcifications, or data center solutions architect ural distortion. No evidence of malignancy. A few incidental punctate and lucent centered calcificati ons. MM/[place] [id number] IMPRESSION: BI-RADS: 2-Benign FOLLOW UP: 1 Year Follow-up Recommend return to annual screening mammography.
== END 2022-05-16 15:03 | disposition home or self-care (01) ==
LOC: RAD 15:02
PROVIDERS: PCP Registered Nurse; Visit Provider Registered Nurse
DX: Z12.31 Encounter for screening mammogram for malignant neoplasm of breast (principal)
CPT/HCPCS: 77063; 77067

== ENCOUNTER 2022-06-17 06:00 | Outpatient (RCR) | payer MEDICARE, SELFPAY | END 2022-07-05 23:59 | disposition home or self-care (01) | LOC: WPT 06:00 | PROVIDERS: PCP Registered Nurse; Visit Provider General Practice | DX: M54.50 Low back pain, unspecified (principal) | CPT/HCPCS: 97110; 97112; 97163; 97530 ==

== ENCOUNTER 2022-07-06 06:00 | Outpatient (RCR) | payer MEDICARE, SELFPAY | END 2022-08-05 23:59 | disposition home or self-care (01) | LOC: WPT 06:00 | PROVIDERS: PCP Registered Nurse; Visit Provider General Practice | DX: M54.50 Low back pain, unspecified (principal) | CPT/HCPCS: 97110; 97112; 97116; 97530 ==

== ENCOUNTER 2022-08-06 06:00 | Outpatient (RCR) | payer MEDICARE, SELFPAY | END 2022-09-02 23:59 | disposition home or self-care (01) | LOC: WPT 06:00 | PROVIDERS: PCP Registered Nurse; Visit Provider General Practice | DX: M54.59 Other low back pain (principal) | CPT/HCPCS: 97110; 97112; 97530 ==

== ENCOUNTER 2022-09-23 09:46 | Outpatient (CLI) | payer MEDICARE, SELFPAY ==
[2022-09-23 10:18] VITALS: BMI 43.9
--- NOTE | 2022-09-23 10:23 | ECG_ITS ---
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 Interpretive Statements NAME OF STUDY: LEXISCAN SESTAMIBI STRESS TEST INDICATION: Chest Pain. results to Jair Sanders PROCEDURE: At the baseline, the EKG revealed normal sinus rhythm with poor R wave progression. Diffuse nonspecific T wave changes. Possible old anteroseptal AK. The baseline heart was 56 bpm with a blood pressue of 114/67 mm of Hg Lexiscan was infused over a period of 20 seconds. A total of 0.4 milligrams of Lexiscan was infused. The stress phase was continued for a total of 5 minutes. Heart rate at the end of the stress phase was 67 bpm with a blood pressure of 115/64 mm of Hg. The EKG at the peak infusion revealed no significant changes occasional PVCs were noted during the recovery phase. Sestamibi was injected 20 seconds after the Lexiscan infusion. Heart rate at the end of the recovery phase was 68 bpm with a blood pressure of 115/74 mm of Hg. CONCLUSION: 1. No significant EKG changes with the LexiScan infusion 2. LexiScan induced ventricular arrhythmia was noted 3. Normal blood pressure and heart rate response 4. Sestamibi/sestamibi perfusion scan pending; see separate report. Electronically Signed On 09-27-2022 14:07:59 CDT by Axel Gibson M.D. [id number]"
--- NOTE | 2022-09-23 10:24 | NMCV_ITS ---
NM simin perf SPECT r/s* [id number] Melvi Jaeger Age: 72 Gender: F : 1950 Exam Date: 09/23/2022 11:21 Ordering Phys: Axel Gibson MD ([email or web address]) Technologist: LORENA Doe Exam Location: [facility] Indications: CORONARY ANGIOPLASTY STATUS STRESS TEST [facility] IMAGE PROTOCOL Rest/Stress 1 Lexiscan Day Radiopharmaceutical Dose (mCi) Administration Site Administered by Rest: Tc-99m 11.0 IV LORENA Doe Sestamibi Stress:Tc-99m 32.6 IV LORENA Velasco Sestamibi Rest: 23-Sep-2022 60 Discovery 630 Stress: 23-Sep-2022 30 Discovery 630 0.4mg Lexiscan. Supine position only as patient was unable to lay prone. SPECT RESULTS Technical Quality: Good Raw Data Analysis: Breast attenuation Image Corrections: No attenuation or motion correction applied Summed Stress Score: 11 Summed Rest Score: 10 Summed Difference Score: 3 PERFUSION FINDINGS Moderate area of moderately decreased tracer uptake was noted in the apical anterior, apical lateral, apical septal, mid anteroseptal, apical inferior and LV apex . Subtle area of reversibility was noted in the apical inferior region. FUNCTIONAL RESULTS (calculated via Gated SPECT) Stress Image LV EF (%): 57 Stress EDV (mL):148 TID: 0.93 Stress ESV (mL):64 FUNCTIONAL FINDINGS: Segmental wall motion analysis revealed mild diffuse hypokinesia of the LV apex IMPRESSIONS 1. Myocardial perfusion imaging revealing moderate area of persistent decreased tracer uptake involving all the apical segments and mid anteroseptal segment with a subtle area of reversibility in the apical inferior region suggesting myocardial scarring involving the distribution of all the 3 coronary arteries with a very subtle area of hattie-infarction ischemia mainly in the distribution of the distal RCA. 2. Normal LV ejection fraction of 57%. 3. LV wall motion analysis revealing mild diffuse hypokinesia of the LV apex 4. Mildly dilated LV cavity with end-systolic volume of 64 mL No similar previous studies are available for comparison Dr Axel Gibson MD FAC (Electronically Signed) Final Date: 23 September 2022 21:33 S
[2022-09-23] MEDS: regadenoson 0.4 Mg/5 ml Syringe IVP (12:01)
[2022-09-23 12:20] VITALS: BP 115/64; PULSE 72
== END 2022-09-23 09:47 | disposition home or self-care (01) ==
PROVIDERS: PCP Internal Medicine Cardiovascular Disease; Visit Provider Internal Medicine Cardiovascular Disease
DX: R07.9 Chest pain, unspecified (principal); Z98.61 Coronary angioplasty status
CPT/HCPCS: 36415; 78452; 93017; 96374; 99214; A9500; J2785

== ENCOUNTER → 2023-01-13 14:54 | Outpatient (BNVA) | payer MEDICARE, SELFPAY | PROVIDERS: PCP Internal Medicine Cardiovascular Disease; Visit Provider Specialist | DX: G30.9 Alzheimer's disease, unspecified (principal); F02.80 Dementia in other diseases classified elsewhere, unspecified severity, without behavioral disturbance, psychotic disturbance, mood disturbance, and anxiety | CPT/HCPCS: 99213 ==

== ENCOUNTER → 2023-03-16 13:41 | Outpatient (BNVA) | payer MEDICARE, SELFPAY | PROVIDERS: PCP Nurse Practitioner Family; Visit Provider Internal Medicine Cardiovascular Disease | DX: I25.110 Atherosclerotic heart disease of native coronary artery with unstable angina pectoris (principal); I11.0 Hypertensive heart disease with heart failure; I50.31 Acute diastolic (congestive) heart failure; E78.00 Pure hypercholesterolemia, unspecified; R60.0 Localized edema; G30.9 Alzheimer's disease, unspecified; F02.80 Dementia in other diseases classified elsewhere, unspecified severity, without behavioral disturbance, psychotic disturbance, mood disturbance, and anxiety; Z87.891 Personal history of nicotine dependence | CPT/HCPCS: 99214 ==

== ENCOUNTER → 2023-07-08 15:45 | Outpatient (BNVA) | payer MEDICARE, SELFPAY | PROVIDERS: PCP Nurse Practitioner Family; Visit Provider Specialist | DX: G30.9 Alzheimer's disease, unspecified (principal); F02.80 Dementia in other diseases classified elsewhere, unspecified severity, without behavioral disturbance, psychotic disturbance, mood disturbance, and anxiety; G47.10 Hypersomnia, unspecified | CPT/HCPCS: 99215 ==

== ENCOUNTER 2023-07-14 13:03 | Inpatient (IN) | payer MEDICARE, SELFPAY ==
[2023-07-14] VITALS (9 sets, daily range): BP systolic 122–171; BP diastolic 68–99; PULSE 73–98; RESP 15–18; TEMP 36.6–37.1; O2SAT 91–98; BMI 50.1
--- NOTE | 2023-07-14 13:17 | XRR_ITS ---
PROCEDURE INFORMATION: Exam: XR Chest Exam date and time: 07/14/2023 1:35 PM Age: 73 years old Clinical indication: Shortness of breath; Additional info: Fluid overload TECHNIQUE: Imaging protocol: Radiologic exam of the chest. Views: 1 view. COMPARISON: CR XR chest 1V portable [id number] 04/22/2020 7:12 PM FINDINGS: Lungs: Consolidative infiltrate in the left lower lobe with a milder infiltrate in the left upper lobe. Mild diffuse interstitial prominence. Pleural spaces: Unremarkable. No pleural effusion. No pneumothorax. Heart/Mediastinum: See Vasculature finding. Vasculature: Mild cardiomegaly and uncoiling of the thoracic aorta. Bones/joints: Unremarkable. XR/XR chest 1V portable [id number] IMPRESSION: Multifocal left-sided pneumonia.
--- NOTE | 2023-07-14 13:17 | ECG_ITS ---
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 Measurements Intervals [place] Rate: 82 P: 0 MN: 0 QRS: -13 QRSD: 91 T: 208 QT: 319 QTc: 373 Interpretive Statements ATRIAL FIBRILLATION WITH ABERRANT CONDUCTION OR VENTRICULAR PREMATURE COMPLEXES LOW QRS VOLTAGE IN PRECORDIAL LEADS [QRS DEFLECTION < 1.0 mV IN CHEST LEADS] ANTEROSEPTAL MYOCARDIAL INFARCTION , PROBABLY OLD [40+ ms Q WAVE IN V1-V4] Compared to ECG 04/24/2020 12:29:02 Ventricular premature complex(es) now present Aberrant conduction of supraventricular beat(s) now present Low QRS voltage now present Myocardial infarct finding now present Sinus rhythm no longer present T-wave abnormality no longer present Electronically Signed On 07-14-2023 21:42:31 SR. OPERATIONS MANAGER by Axel Gibson M.D. [id number]
--- NOTE | 2023-07-14 13:18 | W.ED.SOB ---
HPI - SOB/Dyspnea General: Chief Complaint: Shortness of Breath/Dyspnea Stated Complaint: SOB Time Seen by Provider: 07/14/23 13:07 History of Present Illness: HPI Narrative: Vani is a 73-year-old female who presented to [facility] clinic in [facility] today with shortness of breath and swelling. She has a relevant history of coronary artery disease and congestive heart failure. Her oxygen saturation on arrival was 82%. She was stabilized on 2 L of oxygen per minute, with an average saturation of 94%. Her medical history is also relevant for hyperlipidemia, hypokalemia, Alzheimer dementia, chronic chest pain, hypertensive disorder, peripheral vascular disease, chronic bilateral lower extremity edema, prediabetes. According to the patient's medical list she does take aspirin and Plavix daily. She is also managed with lisinopril, isosorbide mononitrate, metoprolol, furosemide 20 mg daily, potassium supplementation. The patient endorses that she has been having progressive shortness of breath and difficulty with mobility for at least the last week. She is unsure what her baseline weight is. Patient has obvious bilateral lower extremity edema, abdominal wall edema, and prefers to sit straight up. She is on 2 L of oxygen by nasal cannula at this time. She has some paperwork with her that shows blood work was collected on July 09, 2023. It showed a sodium of 131, potassium 3.4, chloride 90, bicarb 30, creatinine 0.56, normal GFR, elevated BNP. Patient is a poor historian. Associated symptoms: Deny abdominal pain, chest pain, fever(s), nausea, syncope or vomiting Review of Systems General: Reports: 10 or more systems reviewed and unremarkable except in HPI and below Const: Denies: fever(s), chills or body aches Eyes: Denies: change in vision ENMT: Denies: throat pain Card: Denies: chest pain or syncope GI: Denies: abdominal pain, nausea, vomiting or diarrhea : Denies: flank pain, dysuria or urinary frequency Musc: Denies: neck pain or back pain Skin/Breast: Denies: rash or erythema Neuro: Denies: headache(s) or lack of coordination PFSH ED PFSH: Medical History (Updated 07/14/23 @ 15:49 by Dannie Pineda MD) Hypersomnia Nasal congestion Lower respiratory infection Acute bacterial sinusitis Injury of right lower extremity Lower leg pain Atherosclerotic heart disease of [place] coronary artery with unstable angina pectoris Diastolic congestive heart failure Hx of skin cancer, basal cell 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 region Intervertebral disc disorder with radiculopathy of lumbosacral region History of myocardial infarction Hypertension Hypercholesterolemia Hx of gastroesophageal reflux (GERD) CAD (coronary artery disease) Opioid contract exists Encounter for long-term use of opiate analgesic Surgical History Stented coronary artery Hx of cholecystectomy History of hysterectomy for cancer Family History Father CAD (coronary artery disease) Hypertension Stroke Cancer Mother Hypertension Cancer Denies family history of Diabetes Clotting disorder Dementia Chronic kidney disease (CKD) Suicide Anesthesia complication Bleeding disorder Lung disease Social History Smoking and tobacco/nicotine status: former use of tobacco/nicotine Second hand smoke exposure: No Alcohol intake: never Substance/Drug Use: never Household members: significant other Marital status: / Current occupational status: retired and disabled Physical Exam Narrative: EXAM NARRATIVE: This is a deconditioned, elderly appearing 73-year-old female who is wearing 2 L of oxygen per nasal cannula and saturating 92%. Her respiratory rate is mildly increased and her work of breathing is mildly increased. She has diminished breath sounds in the bases bilaterally with a faint expiratory wheeze and a few crackles on respiratory exam. She has abdominal wall edema and severe pitting edema bilateral lower extremities with flaccid bullae and clear transudative fluid within them. She prefers to sit straight up. No JVD in an upright position. History is limited and the patient has impaired cognition with a history of Alzheimer's dementia. She is able to tell me that it is July and she is at [place]. Initially on arrival she was not able to tell me what she was here but seems to be piecing together little bit little. The bilateral lower extremities are slightly erythematous and tight with edema, the skin is thin and hairless. Const: COMMON NORMALS: alert and well nourished HENMT: COMMON NORMALS: normocephalic, atraumatic and external ears normal HEAD & SCALP: normocephalic and atraumatic EXTERNAL EAR: Yes external ears normal MOUTH: no muffled voice Eye: COMMON NORMALS: EOMs intact bilaterally, conjunctivae normal and no scleral icterus CONJUNCTIVA: Yes conjunctivae normal Neck/C-Spine: COMMON NORMALS: no JVD GENERAL: Yes normal visual inspection and Yes trachea midline Resp: COMMON NORMALS: No use of accessory muscles Cardio: COMMON NORMALS: no JVD GI: COMMON NORMALS: Soft to palpation and non-tender PALPATION: Yes Soft to palpation and No Guarding due to palpation present (GI) Neuro: COMMON NORMALS: moves all extremities, no focal motor deficits and no sensory deficits noted SENSORIUM/ORIENTATION: Yes alert SPEECH: speech normal Psych: COMMON NORMALS: cooperative, normal affect and speech normal SPEECH: Yes normal speech Skin: COMMON NORMALS: turgor normal and no jaundice GENERAL SKIN EXAM: turgor normal Course Vital Signs: Vital signs: Vital Signs Temperature 97.8 F 07/14/23 13:08 Pulse Rate 89 07/14/23 15:12 Respiratory Rate 18 07/14/23 13:08 Blood Pressure 158/99 07/14/23 15:12 Pulse Oximetry 92 07/14/23 15:12 Oxygen Delivery Me thod Nasal Cannula 07/14/23 15:12 Oxygen Flow Rate 2 07/14/23 15:12 MDM - SOB/Dyspnea Medical Decision Making 73-year-old female presents emergency department with fluid overload and associated hypoxic respiratory failure. She has some dementia making the history challenging. I was able to get information from the chart as well as a stack of paperwork that was sent with her from the clinic. She has an echocardiogram in the computer suggesting what appeared to be a normal EF in 2019. She does have a history of coronary artery disease with stents. Differential diagnosis would include primary congestive heart failure, renal failure, low albumin, excessive fluid intake, other. We are going to start with Nitropaste on the chest to reduce preload, 0.5 mg of Bumex, oxygen supplementation, VBG to estimate the patient's pH and screen for any hypercapnic respiratory failure. Patient will need to be admitted to the hospital. Update 1545 EKG is showing what appears to be atrial fibrillation. I do not see that she has a history of this on the paperwork that was sent to us. I do not see that she is on any anticoagulation but is on dual antiplatelet therapy. This may be part of the reason why she is having congestive heart failure. Her laboratory workup was notable for low potassium which can be supplemented. She was also found to have a normal pH on her VBG, suggesting that she does not have decompensated hypercapnia. Her chest x-ray shows an infiltrate in the left lower lung. I am wondering if this is gravity dependent pulmonary edema or whether this is an occult infection. She endorses no fever, chills, chest pain. She does not have a white count. I have added a CT angiogram to further characterize this infiltrate on cxr and r/o PE. Discussed with Dr Charles for admission. Lab Data 07/14/23 14:04 07/14/23 14:04 Labs/Radiology: Radiology Impressions Chest X-Ray 07/14/23 13:17 IMPRESSION: Multifocal left-sided pneumonia. Laboratory Results WBC 5.74 10^3/uL (3.29-11.43) 07/14/23 14:04 RBC 3.94 10^6/uL (3.85-5.65) 07/14/23 14:04 Hgb 11.50 g/dL (11.27-16.99) 07/14/23 14:04 Hct 36.7 % (36-47) 07/14/23 14:04 MCV 93.1 fl (85-98) 07/14/23 14:04 MCH 29.2 pg (27-33) 07/14/23 14:04 MCHC 31.3 g/dL (30-55) 07/14/23 14:04 RDW 13.8 % (12.1-15.1) 07/14/23 14:04 Plt Count 209 10^3/cmm (157-399) 07/14/23 14:04 MPV 9.4 fL (7.4-10.4) 07/14/23 14:04 Neut % (Auto) 83.2 % 07/14/23 14:04 Lymph % (Auto) 6.4 % 07/14/23 14:04 [place] % (Auto) 9.4 % 07/14/23 14:04 Eos % (Auto) 0.5 % 07/14/23 14:04 Baso % (Auto) 0.2 % 07/14/23 14:04 Neut # (Auto) 4.77 10^3/uL (1.8-7.7) 07/14/23 14:04 Lymph # (Auto) 0.4 10^3/uL (0.8-4.8) L 07/14/23 14:04 [place] # (Auto) 0.5 10^3/uL (0.2-0.9) 07/14/23 14:04 Eos # (Auto) 0.0 10^3/uL (0.0-0.8) 07/14/23 14:04 Baso # (Auto) 0.0 10^3/uL (0.0-0.1) 07/14/23 14:04 Nucleated RBC % (auto) 0 % 07/14/23 14:04 Nucleated RBCs # 0.0 /100WBC 07/14/23 14:04 PT 15.30 SECONDS (12.1-14.9) H 07/14/23 14:04 INR 1.17 (0.8-1.2) 07/14/23 14:04 APTT 33.0 SECONDS (23.9-36.7) 07/14/23 14:04 Specimen Type Venous 07/14/23 14:03 Sample Site Not specified 07/14/23 14:03 Han Test N/a 07/14/23 14:03 VBG pH 7.41 (7.32-7.42) 07/14/23 14:03 VBG pCO2 54.1 mmHg (41-51) H 07/14/23 14:03 VBG pO2 44.9 mmHg (25-40) H 07/14/23 14:03 VBG HCO3 34.5 mmol/L (24-28) H 07/14/23 14:03 VBG Base Excess 8.3 mmol/L (-3.0-3.0) H 07/14/23 14:03 VBG Hematocrit 37.3 % (37-47) 07/14/23 14:03 Machine Coremaker ID Amh 07/14/23 14:03 Sodium 135 mmol/L (136-145) L 07/14/23 14:04 Potassium 3.1 mmol/L (3.5-5.1) L 07/14/23 14:04 Chloride 92 mmol/L (98-107) L 07/14/23 14:04 Carbon Dioxide 31 mmol/L (22-29) H 07/14/23 14:04 Anion Gap 15.1 (5-19) 07/14/23 14:04 BUN 13 mg/dL (8-23) 07/14/23 14:04 Creatinine 0.6 mg/dL (0.5-0.9) 07/14/23 14:04 GFR Calculation Not Reportable 07/14/23 14:04 Glucose 139 mg/dL (65-115) H 07/14/23 14:04 Calculated Osmolality 282 mOsm/kg (285-295) L 07/14/23 14:04 Calcium 9.9 mg/dL (8.5-10.5) 07/14/23 14:04 Total Bilirubin 0.8 mg/dL (0.15-1.2) 07/14/23 14:04 AST 22 U/L (0-32) 07/14/23 14:04 ALT 21 U/L (0-33) 07/14/23 14:04 Alkaline Phosphatase 108 U/L (35-105) H 07/14/23 14:04 Troponin T Baseline 25 ng/L (0-10) H 07/14/23 14:04 NT-Pro-B Natriuret Pep 5121 pg/mL (0-125) H 07/14/23 14:04 Total Protein 6.3 g/dL (6.6-8.7) L 07/14/23 14:04 Albumin 3.6 g/dL (3.5-5.2) 07/14/23 14:04 Globulin 2.7 g/dL (1.3-4.6) 07/14/23 14:04 All radiology interpretation(s) finalized by discharge ED provider radiology interpretation(s): Portable single view chest x-ray EP interpretation : Cardiomegaly,vascular cngestion, LLL infiltrate vs edema, cannot r/o pleural effusion on left EKG Data EKG 1: Other EKG Comments: EKG obtained at 1354. Narrow complex irregular tachycardia. Probably underlying atrial fibrillation. Ventricular rate is 82, PVC x 1 suspected, QRS duration 91 ms, nonspecific T wave changes. Discharge Plan Discharge Patient Disposition: Admitted As Inpatient Clinical Impression: Acute on chronic diastolic (congestive) heart failure, Acute hypoxemic respiratory failure, Pulmonary edema, Bilateral edema of lower extremity, Atrial fibrillation, new onset, Infiltrate of left lung present on chest x-ray Condition: Stable Coding Level of Care Code ED Warehouse Person for Caridad Clayton
[2023-07-14] MEDS: bumetanide 0.25 mg/mL SDV 4 mL 0.5 MG IVP (13:25)
[2023-07-14] MEDS: nitroglycerin 1 gm/inch oint Pkt 2 INCH TOPICAL (13:26)
[2023-07-14 14:08] LABS: Base Excess VBG 8.3 mmol/L (-3.0-3.0); Blood Gas Operator Identificat AMH; Blood Gas Sample Site Not specified; Blood Gas Sample Type Venous; HCO3 VBG 34.5 mmol/L (24-28); PCO2 VBG 54.1 mmHg (41-51); PO2 VBG 44.9 mmHg (25-40); Venous Blood Gas Hematocrit 37.3 % (37-47); pH VBG 7.41 (7.32-7.42)
[2023-07-14 14:13] LABS: Basophils % 0.2 %; Eosinophils % 0.5 %; Hematocrit 36.7 % (36-47); Lymphocytes # 0.4 10^3/uL (0.8-4.8); Lymphocytes % 6.4 %; Mean Corpuscular HGB Conc 31.3 g/dL (30-55); Mean Corpuscular Hemoglobin 29.2 pg (27-33); Mean Corpuscular Volume 93.1 fl (85-98); Mean Platelet Volume 9.4 fL (7.4-10.4); Monocytes # 0.5 10^3/uL (0.2-0.9); Monocytes % 9.4 %; Neutrophils # 4.77 10^3/uL (1.8-7.7); Neutrophils % 83.2 %; Nucleated Red Blood Cells % 0 %; Platelet Count 209 10^3/cmm (157-399); Red Blood Count 3.94 10^6/uL (3.85-5.65); Red Cell Distribution Width 13.8 % (12.1-15.1); White Blood Count 5.74 10^3/uL (3.29-11.43)
[2023-07-14 14:26] LABS: INR 1.17 (0.8-1.2)
[2023-07-14 14:36] LABS: Troponin(5th) Baseline 25 ng/L (0-10)
[2023-07-14 14:51] LABS: Alanine Aminotransferase 21 U/L (0-33); Albumin Level 3.6 g/dL (3.5-5.2); Alkaline Phosphatase 108 U/L (35-105); Anion Gap 15.1 (5-19); Aspartate Amino Transferase 22 U/L (0-32); Blood Urea Nitrogen 13 mg/dL (8-23); Calcium 9.9 mg/dL (8.5-10.5); Carbon Dioxide 31 mmol/L (22-29); Chloride 92 mmol/L (98-107); Globulin 2.7 g/dL (1.3-4.6); Glucose 139 mg/dL (65-115); NT Pro B Type Natriuretic Pept 5121 pg/mL (0-125); Osmolality Calculated 282 mOsm/kg (285-295); Potassium 3.1 mmol/L (3.5-5.1); Sodium 135 mmol/L (136-145); Total Bilirubin 0.8 mg/dL (0.15-1.2); Total Protein 6.3 g/dL (6.6-8.7)
--- NOTE | 2023-07-14 15:43 | CTR_ITS ---
PROCEDURE INFORMATION: Exam: CTA Chest With Contrast Exam date and time: 07/14/2023 3:50 PM Age: 73 years old Clinical indication: Shortness of breath; Additional info: Hypoxia, abnl cxr (edema vs infection), sedentary TECHNIQUE: Imaging protocol: Computed tomographic angiography of the chest with contrast. Exam focused on the arteries. 3D rendering (Not supervised by radiologist): MIP and/or 3D reconstructed images were created by the technologist. Radiation optimization: All CT scans at this facility use at least one of these dose optimization techniques: automated exposure control; mA and/or kV adjustment per patient size (includes targeted exams where dose is matched to clinical indication); or iterative reconstruction. Contrast material: OMNI 350; Contrast volume: 100 ml; Contrast route: INTRAVENOUS (IV); COMPARISON: CR XR chest 1V portable [id number] 07/14/2023 1:35 PM RADIATION DOSE METRICS: Total DLP (mGy-cm): 544 FINDINGS: Pulmonary arteries: No hypodense filling defects are seen within the pulmonary arteries or their major branches to indicate pulmonary embolus. Aorta: Arteriosclerosis of the thoracic aorta. No findings of dissection aneurysm. Lungs: Scattered alveolar infiltrate is seen within the left lung, more prominent within the lower left lung and upper left lung. No infiltrate is seen within the right lung. Pleural spaces: Trace posterior pleural effusion on the left. No pneumothorax is seen. Heart: Mild cardiomegaly. No pericardial effusion. Mild coronary artery calcification. Lymph nodes: No enlarged lymph nodes. Diaphragm: Tiny hiatal hernia. Bones/joints: Spondylotic change thoracic spine. Probable small hemangioma T10 vertebra. Soft tissues: Unremarkable. CT/CT angio chest PE protcl [id number] IMPRESSION: 1. No CT findings to indicate pulmonary embolus. 2. Scattered predominant alveolar infiltrate within the left lung, more prominent lower left lung and upper left lung, with left trace posterior pleural effusion. Findings are most suggestive multifocal pneumonia of the left lung, for follow-up. 3. Mild cardiomegaly. 4. Arteriosclerosis of the thoracic aorta and mild coronary artery calcification.
[2023-07-14] MEDS: iohexol 350 mg/mL 500 mL Btl (per mL) IV (16:00)
[2023-07-14] MEDS: potassium chloride ER 20 mEq Tablet 40 MEQ PO (16:15)
[2023-07-14] MEDS: aspirin 81 mg Chew Tablet 324 MG PO (16:16)
--- NOTE | 2023-07-14 16:23 | P.HP_ITS ---
Providers/Chief Complaint 2 Primary Care Provider: Mary Lerma NP Chief Complaint: SOB History of Present Illness Melvi Jaeger is a 73 year old female with a past medical history of dementia, morbid obesity, diastolic CHF, dyslipidemia, GERD, hypertension, who presents [facility] due to shortness of breath. Patient is currently accompanied by who is at bedside, patient has been developing worsening lower extremity edema, she was on 10 mg of Lasix which decreased to 20 now to 40, she continues to have generalized edema, anasarca, she has been complaining of shortness of breath, cough, intermittent fevers, no sick contacts, recent travel, no calf pain, no hemoptysis, currently she is on 2 L, has generalized anasarca, 4+ pitting edema Review of Systems 2 Const: Reports: fever(s), chills, body aches, fatigue and malaise Card: Reports: dyspnea on exertion; Denies: chest pain Resp: Reports: dyspnea and non-productive cough GI: Denies: abdominal pain : Denies: flank pain or difficulty voiding Musc: Reports: extremity swelling Neuro: Denies: headache(s) Medications/Allergies Home Medications Medication Instructions Recorded Confirmed Last Taken Type amlodipine 10 mg tablet 10 mg PO QAM 08/09/19 07/14/23 07/14/23 History lisinopril 40 mg tablet 40 mg PO QPM 08/09/19 07/14/23 07/13/23 History pramipexole 0.125 mg tablet 0.125 mg PO BEDTIME 08/09/19 07/14/23 07/13/23 History simethicone 125 mg chewable tablet 125 mg PO BID FLATULANCE 08/09/19 07/14/23 07/14/23 History (Gas-X Extra Strength) furosemide 20 mg tablet (Lasix) 40 mg PO QAM 01/16/20 07/14/23 07/14/23 History clopidogrel 75 mg tablet 75 mg PO QPM 05/23/20 07/14/23 07/13/23 History cetirizine 10 mg tablet 10 mg PO QAM 08/28/20 07/14/23 07/14/23 History baclofen 20 mg tablet 20 mg PO TID PRN spasms 01/13/22 07/14/23 07/14/23 History buspirone 15 mg tablet 15 mg PO BID 02/24/22 07/14/23 07/14/23 History famotidine 40 mg tablet 40 mg PO QPM 02/24/22 07/14/23 07/13/23 History nitroglycerin 0.4 mg sublingual 0.4 mg sublingual Q5M PRN Chest 02/24/22 07/14/23 Unknown Rx tablet Pain #50 tabs fluoxetine 20 mg capsule 20 mg PO QPM 08/25/22 07/14/23 07/13/23 History atorvastatin 40 mg tablet 40 mg PO QPM 03/16/23 07/14/23 07/13/23 History oxycodone-acetaminophen 7.5 mg-325 1 tab PO Q8H PRN Pain 03/16/23 07/14/23 07/14/23 History mg tablet acetaminophen 500 mg tablet 1,000 mg PO Q6H PRN Pain 07/14/23 07/14/23 Unknown History aspirin 81 mg tablet,delayed 81 mg PO QPM 07/14/23 07/14/23 07/13/23 History release donepezil 10 mg tablet 10 mg PO QAM 07/14/23 07/14/23 07/14/23 History isosorbide mononitrate 30 mg 60 mg PO QAM 07/14/23 07/14/23 07/14/23 History tablet,extended release 24 hr lactase 3,000 unit tablet (Lactaid) 3,000 unit PO TID 07/14/23 07/14/23 07/14/23 History metoprolol tartrate 100 mg tablet 50 mg PO BID 07/14/23 07/14/23 07/14/23 History potassium chloride 20 mEq 20 meq PO QAM 07/14/23 07/14/23 07/14/23 History tablet,extended release(part/cryst) Allergies Allergy/AdvReac Type Severity Reaction Status Date / Time Penicillins AdvReac Unknown hives Verified 07/08/23 15:49 Sulfa (Sulfonamide AdvReac Unknown hives Verified 07/08/23 15:49 Antibiotics) PFSH Acute 2 PFSH: Medical History Hypersomnia Nasal congestion Lower respiratory infection Acute bacterial sinusitis Injury of right lower extremity Lower leg pain Atherosclerotic heart disease of [place] coronary artery with unstable angina pectoris Diastolic congestive heart failure Hx of skin cancer, basal cell 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 region Intervertebral disc disorder with radiculopathy of lumbosacral region History of myocardial infarction Hypertension Hypercholesterolemia Hx of gastroesophageal reflux (GERD) CAD (coronary artery disease) Opioid contract exists Encounter for long-term use of opiate analgesic Surgical History Stented coronary artery Hx of cholecystectomy History of hysterectomy for cancer Family History Father CAD (coronary artery disease) Hypertension Stroke Cancer Mother Hypertension Cancer Denies family history of Diabetes Clotting disorder Dementia Chronic kidney disease (CKD) Suicide Anesthesia complication Bleeding disorder Lung disease Social History Smoking and tobacco/nicotine status: former use of tobacco/nicotine Second hand smoke exposure: No Alcohol intake: never Substance/Drug Use: never Household members: significant other Marital status: / Current occupational status: retired and disabled Vitals/I&O/Wt Last Vital Signs Temp 97.8 F 07/14/23 13:08 Pulse 89 07/14/23 15:12 Resp 18 07/14/23 13:08 BP 158/99 07/14/23 15:12 Pulse Ox 92 07/14/23 15:12 O2 Del Method Nasal Cannula 07/14/23 15:12 O2 Flow Rate 2 07/14/23 15:12 Physical Exam 2 Const: COMMON NORMALS: no acute distress EXAM LIMITATIONS: altered mental status ORIENTATION/CONSCIOUSNESS: Yes awake, Yes oriented to person, Yes oriented to place and Yes confused; not oriented to time HENMT: COMMON NORMALS: normocephalic HEAD & SCALP: normocephalic Eye: COMMON NORMALS: Equal, round and reactive pupils present Neck/C-Spine: COMMON NORMALS: no JVD Resp: COMMON NORMALS: normal respiratory effort and No retractions A USCULTATION: crackles and wheezes Cardio: COMMON NORMALS: regular rate, regular rhythm, S1 normal heart sound present and S2 normal heart sound present RATE: regular rate RHYTHM: r egular rhythm HEART SOUNDS: S1 normal heart sound present and S2 normal heart sound present GI: COMMON NORMALS: Normal to inspection, nondistended, normoactive bowel sounds present, Soft to palpation and non-tender Extremity: NARRATIVE EXTREMITY EXAM: 4+ pitting edema, generalized anasarca Neuro: OTHER: Can follow neurologic testing able to move bilateral extremities, squeeze my fingers bilaterally, able to smile for me, cranial nerves II to XII grossly intact, Data 07/14/23 14:04 07/14/23 14:04 A&P Assessment and plan (1) Diastolic congestive heart failure: Qualifiers: Heart failure chronicity: acute Qualified Code(s): I50.31 - Acute diastolic (congestive) heart failure (2) Hypertension: Qualifiers: Hypertension type: essential hypertension Qualified Code(s): I10 - Essential (primary) hypertension (3) Acute on chronic diastolic (congestive) heart failure: (4) CAD (coronary artery disease): (5) Alzheimer disease: (6) Hypersomnia: (7) Acute hypoxemic respiratory failure: (8) Bilateral edema of lower extremity: (9) Anasarca: (10) Left lower lobe pneumonia: (11) Acute encephalopathy: (12) Atrial fibrillation, new onset: Plan Acute hypoxic respiratory failure ? Secondary to left-sided multifocal pneumonia, ? With acute fluid overload, diastolic CHF exacerbation, 4+ pitting edema, anasarca, diffuse crackles on examination ? Plan, ? Sputum cultures, blood cultures, Pro-Rudolph, CRP, respiratory viral panel ? Rocephin - azithromycin, -Fluid restrictions at 1000 cc, ? Lasix 40 mg IV twice daily ? Monitor creatinine, monitor potassium ? Monitor respiratory status Left-sided multifocal pneumonia, as above Diastolic CHF, as above Atrial fibrillation ? No history of A-fib ? EKG shows A-fib, ? Serial EKGs, serial troponins, telemetry monitoring -Continue beta-juan -Start Eliquis 5 mg p.o. twice daily -cardiac echo Morbid obesity History of Alzheimer's disease Full code, ? Eliquis for DVT prophylaxis Attestations 2 Medical Necessity Statement*: Patient requires hospitalization, inpatient, greater than 2 midnights, for acute hypoxic respiratory failure secondary to left-sided multifocal pneumonia, fluid overload, diastolic CHF exacerbation, atrial fibrillation Diagnoses Acute diastolic congestive heart failure I50.31 Heart failure chronicity: acute Essential hypertension I10 Hypertension type: essential hypertension Acute on chronic diastolic (congestive) heart failure I50.33 CAD (coronary artery disease) I25.10 Alzheimer disease G30.9; F02.80 Hypersomnia G47.10 Acute hypoxemic respiratory failure J96.01 Bilateral edema of lower extremity R60.0 Anasarca R60.1 Left lower lobe pneumonia J18.9 Acute encephalopathy G93.40 Atrial fibrillation, new onset I48.91
--- NOTE | 2023-07-14 16:34 | USCV_ITS ---
Melvi Jaeger Age: 73 Gender: F : 1950 Exam Date: 07/14/2023 20:11 Ordering Phys: Yamil Charles MD Technologist: YUE [place] [facility] [place]B, history of CHF, CAD, hypoxic 82% on room air, Alzheimers BP: 158 / 99 HR: 104 Rhythm: Atrial fibrillation Technical Quality: Adequate MEASUREMENTS (Male / Female) Normal Values 2D ECHO LV Diastolic Diameter PLAX 4.9 cm 4.2 - 5.9 / 3.9 - 5.3 cm LV Systolic Diameter PLAX 3.8 cm IVS Diastolic Thickness 0.6 cm 0.6 - 1.0 / 0.6 - 0.9 cm IVS Systolic Thickness 1.0 cm LVPW Diastolic Thickness 0.9 cm 0.6 - 1.0 / 0.6 - 0.9 cm LVPW Systolic Thickness 1.0 cm LVOT Diameter 1.8 cm LV Ejection Fraction 2D Teich 45.4 % LV Ejection Fraction MOD 2C 36.3 % LV Ejection Fraction 2C AL 35.3 % LA Diameter 6.0 cm LA Width 6.0 cm LA Height 7.3 cm RA Width 4.3 cm RA Height 6.2 cm Aorta at Sinotubular Diameter 3.0 cm IVC Diameter 3.1 cm M-MODE Aortic Annulus Diameter 3.4 cm LA Ao Ratio MM 1.8 MV E Point Septal Separation 0.6 cm DOPPLER AV Peak Velocity 124.0 cm/s LVOT Peak Velocity 74.0 cm/s AV Area Cont Eq vti 1.2 cm squared AV Area Cont Eq pk 1.6 cm squared MV Peak Velocity 132.0 cm/s MV Area PHT 4.5 cm squared MV E' Velocity 66.5 cm/s Mitral E to MV E' Ratio 16.7 Mitral E to LV E' Lateral Ratio 16.0 Mitral E to LV E' Septal Ratio 17.4 TR Peak Velocity 259.8 cm/s TR Peak Gradient 27.0 mmHg TV Peak E Velocity 84.0 cm/s Right Atrial Pressure 15.0 mmHg Pulmonary Artery Systolic Pressu 42.0 mmHg PV Peak Velocity 79.0 cm/s RV Acceleration Time 0.1 s RV Ejection Time 0.4 s RV AcT/ET 0.3 FINDINGS Left Ventricle Left ventricle is normal in size. LV systolic function is moderate to severely reduced with EF of 30-35%. Moderate to severe global hypokinesis. Right Ventricle RV is moderately hypokinetic Right Atrium Dilated Left Atrium Dilated Mitral Valve Mild mitral annular calcification. Moderate mitral regurgitation Aortic Valve Grossly normal. No significant stenosis. Tricuspid Valve Moderate tricuspid regurgitation. RVSP is 50 to 55 mmHg. This is consistent with moderate pulmonary hypertension Pulmonic Valve Not well-visualized Pericardium Normal Aorta Normal in size IVC Dilated CONCLUSIONS LV systolic function is moderate to severely reduced with EF of 30-35%. Moderate to severe global hypokinesis RV is moderately hypokinetic Biatrial dilation Moderate mitral regurgitation Moderate tricuspid regurgitation Moderate pulmonary hypertension IVC is dilated. Compared to prior echocardiogram from 2019, LV systolic function has significantly decreased. RV function is also low now. Mitral regurgitation and tricuspid regurgitation have progressed and are moderate now Glen Ramos MD (Electronically Signed) Final Date: 15 July 2023 19:24 S
[2023-07-14 17:03] LABS: C Reactive Protein 44.1 mg/L (0.0-4.9)
[2023-07-14] MEDS: pantoprazole 40 mg SDV IVP (17:03)
[2023-07-14] MEDS: cefTRIAXone 1,000 MG in sodium chloride 0.9% (plus) 50 ML 100 MG IV (17:03)
[2023-07-14 17:10] LABS: Procalcitonin 0.07 ng/mL (0-0.5)
[2023-07-14] MEDS: atorvastatin 40 mg Tablet PO (18:37)
[2023-07-14] MEDS: azithromycin 500 MG in sodium chloride 0.9% 250 ML 250 MG IV (18:37)
[2023-07-14] MEDS: BuSPIRONE 10 mg Tablet 15 MG PO (18:38)
[2023-07-14] MEDS: clopidogrel 75 mg Tablet PO (18:39)
[2023-07-14] MEDS: famotidine 20 mg Tablet 40 MG PO (18:39)
[2023-07-14] MEDS: lisinopril 20 mg Tablet 40 MG PO (18:40)
[2023-07-14] MEDS: fluoxetine 20 mg Capsule PO (18:40)
[2023-07-14] MEDS: metoprolol tartrate 50 mg Tablet PO (18:40)
[2023-07-14 18:44] LABS: Adenovirus Not Detected (NOT DETECT); Chlamydia Pneumoniae Not Detected (NOT DETECT); Coronavirus 229E,HKU1,NL63,OC4 Not Detected (NOT DETECT); Human Metapneumovirus Not Detected (NOT DETECT); Human Rhinovirus/Enterovirus Not Detected (NOT DETECT); Influenza A Not Detected (NOT DETECT); Influenza A H1 Not Detected (NOT DETECT); Influenza A H1-2009 Not Detected (NOT DETECT); Influenza A H3 Not Detected (NOT DETECT); Influenza B Not Detected (NOT DETECT); Mycoplasma Pneumoniae Not Detected (NOT DETECT); Parainfluenza Virus Type 1 Not Detected (NOT DETECT); Parainfluenza Virus Type 2 Not Detected (NOT DETECT); Parainfluenza Virus Type 3 Not Detected (NOT DETECT); Parainfluenza Virus Type 4 Not Detected (NOT DETECT); Respiratory Syncytial Virus A Not Detected (NOT DETECT); Respiratory Syncytial Virus B Not Detected (NOT DETECT); SARS-COV-2 Not Detected (NOT DETECT)
--- NOTE | 2023-07-14 19:40 | PC.NURSE ---
received from er via stretcher at 1800.pt is awake...but fell asleep several times during admission interview.appears forgetful.so not at bedside currently.oriented to room environment.instructed to notify staff for any sob,cp,if has to use bathroom..or for any concerns at all.pt verb understanding of instruction.bed alarm placed on.
[2023-07-14 19:59] LABS: INR 1.15 (0.8-1.2)
[2023-07-14 20:11] LABS: Troponin 5 2HR 24.03 ng/L (0-10)
[2023-07-14 20:12] LABS: Troponin 5 2HR Delta -0.97 ABS# (0-10)
[2023-07-14 20:53] LABS: Magnesium 1.7 mg/dL (1.7-2.3); Thyroid Stimulating Hormone 1.41 uIU/mL (0.27-4.20)
[2023-07-14] MEDS: FUROsemide 10 mg/mL SDV 4mL 40 MG IVP (21:25)
[2023-07-14] MEDS: apixaban 5 mg Tablet PO (21:25)
[2023-07-14] MEDS: pramipexole 0.25 mg Tablet 0.125 MG PO (21:41)
--- NOTE | 2023-07-14 21:45 | PC.NURSE ---
Spoke with regarding patient with watery bowel movements x2 within 1 hour. ordered to send stool for cdiff.
[2023-07-15] VITALS (19 sets, daily range): BP systolic 107–140; BP diastolic 62–89; PULSE 78–102; RESP 16–22; TEMP 36.6–37.1; O2SAT 72–99
--- NOTE | 2023-07-15 02:15 | PC.NURSE ---
Asked for something for patients rash to abd folds and groin. ordered nystatin powder.
[2023-07-15] MEDS: amlodipine 10 mg Tablet PO (06:02)
[2023-07-15] MEDS: cetirizine 10 mg Tablet PO (06:02)
[2023-07-15] MEDS: donepezil 5 MG Tablet 10 MG PO (06:02)
[2023-07-15] MEDS: isosorbide mononitrate ER 30 mg Tablet 60 MG PO (06:02)
[2023-07-15] MEDS: potassium chloride ER 20 mEq Tablet PO (06:30)
[2023-07-15 06:31] LABS: Basophils % 0.4 %; Eosinophils # 0.1 10^3/uL (0.0-0.8); Eosinophils % 2.5 %; Hematocrit 35.6 % (36-47); Lymphocytes # 0.6 10^3/uL (0.8-4.8); Lymphocytes % 12.2 %; Mean Corpuscular HGB Conc 30.6 g/dL (30-55); Mean Corpuscular Hemoglobin 29.6 pg (27-33); Mean Corpuscular Volume 96.7 fl (85-98); Mean Platelet Volume 9.7 fL (7.4-10.4); Monocytes # 0.6 10^3/uL (0.2-0.9); Monocytes % 12.8 %; Neutrophils # 3.48 10^3/uL (1.8-7.7); Neutrophils % 71.9 %; Nucleated Red Blood Cells % 0 %; Platelet Count 186 10^3/cmm (157-399); Red Blood Count 3.68 10^6/uL (3.85-5.65); Red Cell Distribution Width 13.9 % (12.1-15.1); White Blood Count 4.84 10^3/uL (3.29-11.43)
[2023-07-15 07:08] LABS: Troponin 5 6HR 23.41 ng/L (0-10)
[2023-07-15 07:10] LABS: Troponin 5 6HR Delta -1.59 ng/L (0-12)
[2023-07-15 07:17] LABS: NT Pro B Type Natriuretic Pept 3732 pg/mL (0-125)
[2023-07-15 07:18] LABS: Alanine Aminotransferase 17 U/L (0-33); Albumin Level 3.1 g/dL (3.5-5.2); Alkaline Phosphatase 90 U/L (35-105); Anion Gap 13.3 (5-19); Aspartate Amino Transferase 21 U/L (0-32); Blood Urea Nitrogen 12 mg/dL (8-23); Calcium 9.5 mg/dL (8.5-10.5); Carbon Dioxide 32 mmol/L (22-29); Chloride 94 mmol/L (98-107); Globulin 2.5 g/dL (1.3-4.6); Glucose 108 mg/dL (65-115); Magnesium 1.6 mg/dL (1.7-2.3); Osmolality Calculated 282 mOsm/kg (285-295); Potassium 3.3 mmol/L (3.5-5.1); Sodium 136 mmol/L (136-145); Total Bilirubin 0.6 mg/dL (0.15-1.2); Total Protein 5.6 g/dL (6.6-8.7)
[2023-07-15] MEDS: potassium chloride ER 20 mEq Tablet 40 MEQ PO ×2 (08:40→17:40)
[2023-07-15] MEDS: metoprolol tartrate 50 mg Tablet PO ×2 (08:41→17:40)
[2023-07-15] MEDS: FUROsemide 10 mg/mL SDV 4mL 40 MG IVP ×2 (08:41→20:44)
[2023-07-15] MEDS: apixaban 5 mg Tablet PO ×2 (08:41→20:44)
[2023-07-15] MEDS: BuSPIRONE 10 mg Tablet 15 MG PO ×2 (08:41→17:40)
--- NOTE | 2023-07-15 10:25 | PC.CHAP ---
Pastoral Care Encounter/Spiritual Assessment Type of Contact [] Declined money laundering investigator visit [] Patient/Family/Request visit [] Outpatient visit [] Follow-up visit [] Physician referral [] Code/Alert [x] Routine visit [] Staff referral [] Actively dying [] Patient sleeping [] Family support [] [] Out of room [] Palliative care [] [] Receiving care in room [] Pre-surgical visit [] Trauma [] Long length of stay [] ICU visit [] Other: Relational/Emotional Strength [] Patient feels connected with others/family/visitors/staff [] Distress [] Loneliness/isolation [] Abandonment Spirituality of Patient [] Person of [place] [] Attends Sikhism of their [place] [] Believes in Prayer [] Reads Bible or Baptism materials [] There are Spiritual issues to be addressed River Rat Interventions [x] Prayer [] Active listening [] Non-anxious presence [] Spiritual/emotional support [] Crisis/trauma care [] Spiritual counseling [] Bereavement support [] Provided bereavement packet [] Provided Bible/devotional materials [] Provided toy/stuffed animal, coloring book to patient or family member [] Provided Communion [] Anointing/[place] [] Salvation [] Completed spiritual assessment [] Other: Impact on Illness or Injury [] Angry [] Fearful [] Anxious [] Often cries [] Exhaustion [] Unable to work [] Unable to attend temple [] Unable to walk/stand [] Unable to read [] Unable to drive [] Unable to eat/drink [] Unable to sleep [] Unable to be with family [] Patient intubated [] Other: Summary Time spent with patient 10 min
[2023-07-15] MEDS: nystatin powder 30 gm Btl 1 APPLIC TOPICAL ×2 (10:28→17:42)
[2023-07-15] MEDS: metOLazone 5 MG Tablet 10 MG PO (10:28)
[2023-07-15] MEDS: magnesium lactate 84 mg Tablet PO ×2 (10:28→17:40)
--- NOTE | 2023-07-15 13:14 | P.PN_ITS ---
Subjective 2 Subjective: patient was seen this morning, uop was lack luster at 900cc, still hs 4+ pitting edema and crackle on exam, discussed with patient and about increasing diureses Vitals/I&O/Wt Last Vital Signs Temp 98.3 F 07/15/23 11:48 Pulse 83 07/15/23 12:00 Resp 20 H 07/15/23 11:48 BP 117/68 07/15/23 11:48 Pulse Ox 94 07/15/23 11:48 O2 Del Method Nasal Cannula 07/15/23 11:48 O2 Flow Rate 2 07/15/23 11:48 07/14/23 07/15/23 07/15/23 22:59 06:59 14:59 Intake Total 360 / 360 0 / 360 360 / 360 Output Total 550 / 550 350 / 900 Balance -190 / -190 -350 / -540 360 / 360 Weight last 48 hrs Weight 129.365 kg Weight 128.423 kg Physical Exam 2 Const: COMMON NORMALS: no acute distress Resp: COMMON NORMALS: normal respiratory effort, No retractions and No use of accessory muscles AUSCULTATION: crackles Cardio: COMMON NORMALS: regular rate, regular rhythm, S1 normal heart sound present and S2 normal heart sound present RATE: regular rate RHYTHM: r egular rhythm HEART SOUNDS: S1 normal heart sound present and S2 normal heart sound present GI: COMMON NORMALS: Normal to inspection, nondistended, normoactive bowel sounds present and non-tender Extremity: NARRATIVE EXTREMITY EXAM: 4+ edema Psych: COMMON NORMALS: mental status grossly normal Urinary Catheter Management: Bahena: Cath Placed During This Visit: yes Reason for Continuing Indwelling Catheter: Acute Urinary Retention or Obstruction Urinary Catheter Date of Insertion: 07/14/23 Urinary Catheter Time of Insertion: 21:00 Data 07/15/23 06:00 07/15/23 06:00 A&P Assessment and plan (1) Diastolic congestive heart failure: Qualifiers: Heart failure chronicity: acute Qualified Code(s): I50.31 - Acute diastolic (congestive) heart failure (2) Hypertension: Qualifiers: Hypertension type: essential hypertension Qualified Code(s): I10 - Essential (primary) hypertension (3) Acute on chronic diastolic (congestive) heart failure: (4) CAD (coronary artery disease): (5) Alzheimer disease: (6) Hypersomnia: (7) Acute hypoxemic respiratory failure: (8) Bilateral edema of lower extremity: (9) Anasarca: (10) Left lower lobe pneumonia: (11) Acute encephalopathy: (12) Atrial fibrillation, new onset: Plan Acute hypoxic respiratory failure ? Secondary to left-sided multifocal pneumonia, ? With acute fluid overload, diastolic CHF exacerbation, 4+ pitting edema, anasarca, diffuse crackles on examination -cta chest - CT/CT angio chest PE protcl [id number]: 1[address] No CT findings to indicate pulmonary embolus. 2. Scattered predominant alveolar infiltrate within the left lung, more prominent lower left lung and upper left lung, with left trace posterior pleural effusion. Findings are most suggestive multifocal pneumonia of the left lung, for follow-up. 3. Mild cardiomegaly. 4. Arteriosclerosis of the thoracic aorta and mild coronary artery calcification. ? Plan, ? Sputum cultures, blood cultures, Pro-Rudolph 0.07, CRP 44.1, respiratory viral panel negative ? Rocephin - azithromycin, -Fluid restrictions at 1000 cc, uop 900cc ? Lasix 40 mg IV twice daily ? Monitor creatinine, monitor potassium ? Monitor respiratory status Left-sided multifocal pneumonia, as above Diastolic CHF, as above Atrial fibrillation ? No history of A-fib ? EKG shows A-fib, ? Serial EKGs, serial troponins, telemetry monitoring -Continue beta-juan - Eliquis 5 mg p.o. twice daily -cardiac echo Morbid obesity History of Alzheimer's disease Full code, ? Eliquis for DVT prophylaxis Attestations 2 Medical Necessity Statement*: patient requires hospitalization for resp failure, pna, fluid overload, afib Diagnoses Acute diastolic congestive heart failure I50.31 Heart failure chronicity: acute Essential hypertension I10 Hypertension type: essential hypertension Acute on chronic diastolic (congestive) heart failure I50.33 CAD (coronary artery disease) I25.10 Alzheimer disease G30.9; F02.80 Hypersomnia G47.10 Acute hypoxemic respiratory failure J96.01 Bilateral edema of lower extremity R60.0 Anasarca R60.1 Left lower lobe pneumonia J18.9 Acute encephalopathy G93.40 Atrial fibrillation, new onset I48.91
[2023-07-15] MEDS: azithromycin 500 MG in sodium chloride 0.9% 250 ML 250 MG IV (16:12)
[2023-07-15] MEDS: pantoprazole 40 mg SDV IVP (16:12)
[2023-07-15] MEDS: cefTRIAXone 1,000 MG in sodium chloride 0.9% (plus) 50 ML 100 MG IV (16:15)
[2023-07-15] MEDS: clopidogrel 75 mg Tablet PO (17:40)
[2023-07-15] MEDS: lisinopril 20 mg Tablet 40 MG PO (17:40)
[2023-07-15] MEDS: fluoxetine 20 mg Capsule PO (17:40)
[2023-07-15] MEDS: famotidine 20 mg Tablet 40 MG PO (17:40)
[2023-07-15] MEDS: atorvastatin 40 mg Tablet PO (18:36)
[2023-07-15] MEDS: pramipexole 0.25 mg Tablet 0.125 MG PO (20:44)
[2023-07-16] VITALS (25 sets, daily range): BP systolic 107–137; BP diastolic 62–86; PULSE 74–118; RESP 13–30; TEMP 36.4–36.7; O2SAT 89–96
[2023-07-16 04:00] LABS: Basophils % 0.4 %; Eosinophils # 0.1 10^3/uL (0.0-0.8); Eosinophils % 2.1 %; Hematocrit 37.8 % (36-47); Lymphocytes # 0.7 10^3/uL (0.8-4.8); Lymphocytes % 13.7 %; Mean Corpuscular HGB Conc 30.7 g/dL (30-55); Mean Corpuscular Hemoglobin 29.4 pg (27-33); Mean Corpuscular Volume 95.7 fl (85-98); Mean Platelet Volume 9.6 fL (7.4-10.4); Monocytes # 0.6 10^3/uL (0.2-0.9); Monocytes % 11.8 %; Neutrophils # 3.76 10^3/uL (1.8-7.7); Neutrophils % 71.6 %; Nucleated Red Blood Cells % 0 %; Platelet Count 207 10^3/cmm (157-399); Red Blood Count 3.95 10^6/uL (3.85-5.65); Red Cell Distribution Width 13.9 % (12.1-15.1); White Blood Count 5.25 10^3/uL (3.29-11.43)
[2023-07-16 04:20] LABS: Alanine Aminotransferase 16 U/L (0-33); Albumin Level 3.4 g/dL (3.5-5.2); Alkaline Phosphatase 89 U/L (35-105); Anion Gap 10.3 (5-19); Aspartate Amino Transferase 20 U/L (0-32); Blood Urea Nitrogen 10 mg/dL (8-23); Calcium 10.2 mg/dL (8.5-10.5); Carbon Dioxide 37 mmol/L (22-29); Chloride 92 mmol/L (98-107); Globulin 2.8 g/dL (1.3-4.6); Glucose 124 mg/dL (65-115); Magnesium 1.6 mg/dL (1.7-2.3); Osmolality Calculated 282 mOsm/kg (285-295); Phosphorus 2.8 mg/dL (2.5-4.5); Potassium 3.3 mmol/L (3.5-5.1); Sodium 136 mmol/L (136-145); Total Bilirubin 0.6 mg/dL (0.15-1.2); Total Protein 6.2 g/dL (6.6-8.7)
[2023-07-16 04:35] LABS: NT Pro B Type Natriuretic Pept 3782 pg/mL (0-125)
[2023-07-16] MEDS: cetirizine 10 mg Tablet PO (05:45)
[2023-07-16] MEDS: potassium chloride ER 20 mEq Tablet PO (05:45)
[2023-07-16] MEDS: amlodipine 10 mg Tablet PO (05:45)
[2023-07-16] MEDS: isosorbide mononitrate ER 30 mg Tablet 60 MG PO (05:45)
[2023-07-16] MEDS: potassium chloride ER 20 mEq Tablet 40 MEQ PO ×2 (05:45→18:13)
[2023-07-16] MEDS: donepezil 5 MG Tablet 10 MG PO (05:45)
[2023-07-16] MEDS: magnesium lactate 84 mg Tablet PO ×2 (08:55→17:32)
[2023-07-16] MEDS: metoprolol tartrate 50 mg Tablet PO ×2 (08:55→17:32)
[2023-07-16] MEDS: FUROsemide 10 mg/mL SDV 4mL 40 MG IVP ×2 (08:55→20:45)
[2023-07-16] MEDS: BuSPIRONE 10 mg Tablet 15 MG PO ×2 (08:55→17:32)
[2023-07-16] MEDS: magnesium sulfate premix 2 GM/50 ML PIGGYBACK IV (08:59)
[2023-07-16] MEDS: apixaban 5 mg Tablet PO (08:59)
[2023-07-16] MEDS: nystatin powder 30 gm Btl 1 APPLIC TOPICAL ×2 (09:00→17:35)
[2023-07-16] MEDS: lidocaine 1% 5 ML in potassium chloride premix 100 ML 26.25 ML IV (10:12)
[2023-07-16] MEDS: metOLazone 5 MG Tablet PO (10:12)
--- NOTE | 2023-07-16 15:02 | P.PN_ITS ---
Subjective 2 Subjective: Patient was seen this morning, she is on 2 L nasal cannula, does have persistent bilateral lower extremity pitting edema 3+, she does feel she feels better today, we discussed her echocardiogram findings with a diminished ejection fraction we will have to consult cardiology she does not have any chest pain she does have a history of CAD, no fevers overnight, no cough, at bedside Vitals/I&O/Wt Last Vital Signs Temp 97.9 F 07/16/23 11:47 Pulse 95 07/16/23 11:47 Resp 23 H 07/16/23 11:47 BP 119/74 07/16/23 11:47 Pulse Ox 93 07/16/23 11:47 O2 Del Method Nasal Cannula 07/16/23 11:47 O2 Flow Rate 2 07/15/23 11:48 07/16/23 07/16/23 07/16/23 06:59 14:59 22:59 Intake Total 220 / 1920 755 / 755 Output Total 1700 / 5275 1650 / 1650 Balance -1480 / -3355 -895 / -895 Weight last 48 hrs Weight 127.414 kg Weight 129.365 kg Weight 128.423 kg Physical Exam 2 Const: COMMON NORMALS: no acute distress ORIENTATION/CONSCIOUSNESS: Yes awake, Yes oriented to person and Yes oriented to place; not oriented to time Resp: COMMON NORMALS: normal respiratory effort, No retractions, No use of accessory muscles and clear to auscultation bilaterally AUSCULTATION: clear to auscultation bilaterally Cardio: COMMON NORMALS: regular rate, regular rhythm, S1 normal heart sound present and S2 normal heart sound present RATE: regular rate RHYTHM: r egular rhythm HEART SOUNDS: S1 normal heart sound present and S2 normal heart sound present GI: COMMON NORMALS: Normal to inspection, nondistended, normoactive bowel sounds present and non-tender Neuro: SENSORIUM/ORIENTATION: Yes oriented to person, Yes oriented to place and No oriented to time Psych: COMMON NORMALS: mental status grossly normal Urinary Catheter Management: Bahena: Cath Placed During This Visit: yes Reason for Continuing Indwelling Catheter: Acute Urinary Retention or Obstruction Urinary Catheter Date of Insertion: 07/14/23 Urinary Catheter Time of Insertion: 21:00 Data 07/16/23 03:46 07/16/23 03:46 A&P Assessment and plan (1) Diastolic congestive heart failure: Qualifiers: Heart failure chronicity: acute Qualified Code(s): I50.31 - Acute diastolic (congestive) heart failure (2) Hypertension: Qualifiers: Hypertension type: essential hypertension Qualified Code(s): I10 - Essential (primary) hypertension (3) Acute on chronic diastolic (congestive) heart failure: (4) CAD (coronary artery disease): (5) Alzheimer disease: (6) Hypersomnia: (7) Acute hypoxemic respiratory failure: (8) Bilateral edema of lower extremity: (9) Anasarca: (10) Left lower lobe pneumonia: (11) Acute encephalopathy: (12) Atrial fibrillation, new onset: (13) Non-ST elevation ME (NSTEMI): Plan Acute hypoxic respiratory failure ? Secondary to left-sided multifocal pneumonia, ? With acute fluid overload, diastolic CHF exacerbation, 4+ pitting edema, anasarca, diffuse crackles on examination -cta chest - CT/CT angio chest PE protcl [id number] IMPRESSION: 1. No CT findings to indicate pulmonary embolus. 2. Scattered predominant alveolar infiltrate within the left lung, more prominent lower left lung and upper left lung, with left trace posterior pleural effusion. Findings are most suggestive multifocal pneumonia of the left lung, for follow-up. 3. Mild cardiomegaly. 4. Arteriosclerosis of the thoracic aorta and mild coronary artery calcification. ? Plan, ? Sputum cultures, blood cultures, Pro-Rudolph 0.07, CRP 44.1, respiratory viral panel negative ? Rocephin - azithromycin, -Fluid restrictions at 1000 cc, uop 5 L ? Lasix 40 mg IV twice daily, 1 dose metolazone ? Monitor creatinine, monitor potassium ? Monitor respiratory status Left-sided multifocal pneumonia, as above Diastolic CHF, as above Atrial fibrillation ? No history of A-fib ? EKG shows A-fib, ? Serial EKGs, serial troponins, telemetry monitoring -Continue beta-juan - Eliquis 5 mg p.o. twice daily -cardiac echo NSTEMI CONCLUSIONS LV systolic function is moderate to severely reduced with EF of 30-35%. Moderate to severe global hypokinesis RV is moderately hypokinetic Biatrial dilation Moderate mitral regurgitation Moderate tricuspid regurgitation Moderate pulmonary hypertension IVC is dilated. Compared to prior echocardiogram from 2019, LV systolic function has significantly decreased. RV function is also low now. Mitral regurgitation and tricuspid regurgitation have progressed and are moderate now Cardiac catheterization in 2020 Conclusions 1. There is severe coronary artery disease with one vessel disease. Occluded recently placed distal ramus stent.. 2. Ramus was treated with three Balloon. Cardiac Recommendations * Patient has questionable compliance with medications. She mentioned she might not be taking her medicines and does not remember names of her medications. Patient has cognitive dysfunction. We attempted balloon angioplasty and were able to achieve JATINDER I-II flow however this vessel has poor outflow and multiple layers of stents. Given patient's poor compliance, multiple layers of stents and poor outflow we decided not to put another stent and treat residual stenosis. Plan, ? Continue Plavix, on aspirin, statin, beta-juan, send ?cardiology consulted for consideration of cath Morbid obesity History of Alzheimer's disease Full code, ? Eliquis for DVT prophylaxis Attestations 2 Medical Necessity Statement*: Patient requires hospitalization for fluid overload requiring diuresis, pneumonia requiring IV antibiotics, NSTEMI, diminished ejection fraction requiring cardiology consultation, new onset A-fib Diagnoses Acute diastolic congestive heart failure I50.31 Heart failure chronicity: acute Essential hypertension I10 Hypertension type: essential hypertension Acute on chronic diastolic (congestive) heart failure I50.33 CAD (coronary artery disease) I25.10 Alzheimer disease G30.9; F02.80 Hypersomnia G47.10 Acute hypoxemic respiratory failure J96.01 Bilateral edema of lower extremity R60.0 Anasarca R60.1 Left lower lobe pneumonia J18.9 Acute encephalopathy G93.40 Atrial fibrillation, new onset I48.91 Non-ST elevation ME (NSTEMI) I21.4
[2023-07-16] MEDS: aspirin 81 mg EC Tablet PO (15:17)
[2023-07-16 16:30] LABS: Clostridium Difficile PCR NOT DETECTED (NOT DETECTED)
--- NOTE | 2023-07-16 17:11 | P.CONIM_ITS ---
Providers/Reason For Consult 2 Consulting Physician/Specialty*: EMMANUEL Gibson MD/cardiology Reason for Consult*: Patient with a new onset of atrial fibrillation, congestive heart failure and LV dysfunction Requesting Physician: Dr. Charles Attending Physician: Yamil Charles MD Primary Care Provider: Mary Lerma NP History of Present Illness History of Present Illness Melvi Jaeger is a 73 year old female with a history of atherosclerotic heart disease, high blood pressure, dyslipidemia, is admitted to the hospital through the emergency room where she presented with complaints of increasing shortness of breath and lower extremity swelling. According to the family, the patient has been experiencing increasing shortness of breath and difficulty in ambulating, for the last few weeks. She also been noticing swelling of the lower extremities with the blisters for a week or so. Because of the worsening of the symptoms, she was brought to the hospital emergency room. She might have had some chest discomfort/tightness. The patient is somewhat vague about the symptoms. She did not have a fever, chills or cough. No palpitations, dizziness or syncopal episodes. Patient was found to have features of congestive heart failure and possible multifocal pneumonia. She is on empiric antibiotic treatment. She also was started on IV diuretics. Her shortness of breath is slowly improving. Patient was found to be in new onset atrial fibrillation rapid ventricular rate. The echocardiogram revealed LV ejection fraction of around 30 to 35%. This seems to be new finding. The heart rate seems to be getting under control. Her shortness of breath seems to be improving. Patient had some altered mental status and features of hypoxic respiratory failure. Her oxygenation has improved with the BiPAP. She has not had any fever or chills. No significant cough. No history for TIAs. She is known to have Alzheimer's disease and hypersomnia. Patient had the most recent cardiac catheterization April 2022. The findings are as follows. LAD 50% midsegment stenosis, circumflex 30-40% proximal stenosis, OM 2 small caliber with prox to mid 50-60% stenosis, ramus artery had proximal to distal stents with an 85% stenosis present after the stent. The ramus lesion was treated with balloon angioplasty and NATALIIA. On 04/22/2020 she presented to the emergency room with chest pain. Her baseline troponin was 1500, 6 hr trop was 1826. She underwent coronary angiogram which revealed occlusion of the recent ramus stent. She had missed some doses of Plavix. Attempts to open the vessel with balloon angioplasty resulted in JATINDER 1 flow. Patient is known to have Alzheimer's disease as well. Review of Systems 2 Narrative: CONSTITUTIONAL: No fever or chills. Has been having some generalized weakness EYES: No blurring of vision or other visual disturbances lately. ENT: No hoarseness of voice, auditory disturbances or sore throat. CARDIOVASCULAR: As mentioned above. RESPIRATORY: Progressive shortness of breath GASTROINTESTINAL: No hematemesis or melena. GENITOURINARY: No dysuria or hematuria. INTEGUMENTARY: No skin rashes or history of skin cancer. NEURO: As mentioned above PSYCHIATRIC: No history of psychosis or major depression. HEMATOLOGIC: No bleeding disorders or significant anemia. ENDOCRINE: No history of polyuria or polydipsia. MUSCULOSKELETAL: Difficulty in ambulation because of bilateral leg swelling ALLERGY/IMMUNOLOGY: As mentioned above. Medications/Allergies Home Medications Medication Instructions Recorded Confirmed Last Taken Type amlodipine 10 mg tablet 10 mg PO QAM 08/09/19 07/14/23 07/14/23 History lisinopril 40 mg tablet 40 mg PO QPM 08/09/19 07/14/23 07/13/23 History pramipexole 0.125 mg tablet 0.125 mg PO BEDTIME 08/09/19 07/14/23 07/13/23 History simethicone 125 mg chewable tablet 125 mg PO BID FLATULANCE 08/09/19 07/14/23 07/14/23 History (Gas-X Extra Strength) furosemide 20 mg tablet (Lasix) 40 mg PO QAM 01/16/20 07/14/23 07/14/23 History clopidogrel 75 mg tablet 75 mg PO QPM 05/23/20 07/14/23 07/13/23 History cetirizine 10 mg tablet 10 mg PO QAM 08/28/20 07/14/23 07/14/23 History baclofen 20 mg tablet 20 mg PO TID PRN spasms 01/13/22 07/14/23 07/14/23 History buspirone 15 mg tablet 15 mg PO BID 02/24/22 07/14/23 07/14/23 History famotidine 40 mg tablet 40 mg PO QPM 02/24/22 07/14/23 07/13/23 History nitroglycerin 0.4 mg sublingual 0.4 mg sublingual Q5M PRN Chest 02/24/22 07/14/23 Unknown Rx tablet Pain #50 tabs fluoxetine 20 mg capsule 20 mg PO QPM 08/25/22 07/14/23 07/13/23 History atorvastatin 40 mg tablet 40 mg PO QPM 03/16/23 07/14/23 07/13/23 History oxycodone-acetaminophen 7.5 mg-325 1 tab PO Q8H PRN Pain 03/16/23 07/14/23 07/14/23 History mg tablet acetaminophen 500 mg tablet 1,000 mg PO Q6H PRN Pain 07/14/23 07/14/23 Unknown History aspirin 81 mg tablet,delayed 81 mg PO QPM 07/14/23 07/14/23 07/13/23 History release donepezil 10 mg tablet 10 mg PO QAM 07/14/23 07/14/23 07/14/23 History isosorbide mononitrate 30 mg 60 mg PO QAM 07/14/23 07/14/23 07/14/23 History tablet,extended release 24 hr lactase 3,000 unit tablet (Lactaid) 3,000 unit PO TID 07/14/23 07/14/23 07/14/23 History metoprolol tartrate 100 mg tablet 50 mg PO BID 07/14/23 07/14/23 07/14/23 History potassium chloride 20 mEq 20 meq PO QAM 07/14/23 07/14/23 07/14/23 History tablet,extended release(part/cryst) Allergies Allergy/AdvReac Type Severity Reaction Status Date / Time Penicillins AdvReac Unknown hives Verified 07/08/23 15:49 Sulfa (Sulfonamide AdvReac Unknown hives Verified 07/08/23 15:49 Antibiotics) Current Medications Generic Name Dose Route Start Last Admin Trade Name Freq PRN Reason Stop Dose Admin Amlodipine Besylate 10 mg 07/15/23 06:00 07/16/23 05:45 Amlodipine 10 Mg Tablet PO 10 mg QAM SHIRIN Administration Apixaban 5 mg 07/14/23 21:00 07/16/23 08:59 Apixaban 5 Mg Tablet PO 5 mg BID@0900,2100 SHIRIN Administration Atorvastatin Calcium 40 mg 07/14/23 18:00 07/15/23 18:36 Atorvastatin 40 Mg Tablet PO 40 mg QPM SHIRIN Administration Buspirone HCl 15 mg 07/14/23 18:00 07/16/23 08:55 Buspirone 10 Mg Tablet PO 15 mg BID SHIRIN Administration Cetirizine HCl 10 mg 07/15/23 06:00 07/16/23 05:45 Cetirizine 10 Mg Tablet PO 10 mg QAM SHIRIN Administration Clopidogrel Bisulfate 75 mg 07/14/23 18:00 07/15/23 17:40 Clopidogrel 75 Mg Tablet PO 75 mg QPM SHIRIN Administration Donepezil HCl 10 mg 07/15/23 06:00 07/16/23 05:45 Donepezil 5 Mg Tablet PO 10 mg QAM SHIRIN Administration Famotidine 40 mg 07/14/23 18:00 07/15/23 17:40 Famotidine 20 Mg Tablet PO 40 mg QPM SHIRIN Administration Fluoxetine HCl 20 mg 07/14/23 18:00 07/15/23 17:40 Fluoxetine 20 Mg Capsule PO 20 mg QPM SHIRIN Administration Furosemide 40 mg 07/14/23 21:00 07/16/23 08:55 Furosemide 10 Mg/Ml Sdv 4ml IVP 40 mg Q12H SHIRIN Administration Ceftriaxone Sodium 1,000 mg/ 50 mls @ 100 mls/hr 07/14/23 16:51 07/15/23 17:32 Sodium Chloride IV Infused Q24H SHIRIN Infusion Protocol Azithromycin 500 mg/ Sodium 250 mls @ 250 mls/hr 07/14/23 16:51 07/15/23 17:32 Chloride IV Infused Q24H [facility] Infusion Protocol Isosorbide Mononitrate 60 mg 07/15/23 06:00 07/16/23 05:45 Isosorbide Mononitrate Er 30 Mg Tablet PO 60 mg QAM SHIRIN Administration Lisinopril 40 mg 07/14/23 18:00 07/15/23 17:40 Lisinopril 20 Mg Tablet PO 40 mg QPM SHIRIN Administration Magnesium Lactate 84 mg 07/15/23 09:00 07/16/23 08:55 Magnesium Lactate 84 Mg Tablet PO 84 mg BID SHIRIN Administration Metoprolol Tartrate 50 mg 07/14/23 18:00 07/16/23 08:55 Metoprolol Tartrate 50 Mg Tablet PO 50 mg BID SHIRIN Administration Non-Formulary Medication 3,000 unit 07/14/23 21:00 07/16/23 08:56 Lactase [Lactaid] PO Not Given TID SHIRIN Non-Formulary Medication 125 mg 07/14/23 18:00 07/16/23 09:44 Simethicone [Gas-X Extra Strength] PO Not Given BID SHIRIN Nystatin 1 applic 07/15/23 09:00 07/16/23 09:00 Nystatin Powder 30 Gm Btl TOPICAL 1 applic BID SHIRIN Administration Pantoprazole Sodium 40 mg 07/14/23 16:15 07/15/23 16:12 Pantoprazole 40 Mg Sdv IVP 40 mg Q24H SHIRIN Administration Potassium Chloride 40 meq 07/15/23 07:00 07/16/23 05:45 Potassium Chloride Er 20 Meq Tablet PO 07/19/23 04:16 40 meq Q12H SHIRIN Administration Potassium Chloride 20 meq 07/15/23 06:00 07/16/23 05:45 Potassium Chloride Er 20 Meq Tablet PO 20 meq QAM SHIRIN Administration Pramipexole Dihydrochloride 0.125 mg 07/14/23 21:00 07/15/23 20:44 Pramipexole 0.25 Mg Tablet PO 0.125 mg BEDTIME SHIRIN Administration PFSH Acute 2 PFSH: Medical History Hypersomnia Nasal congestion Lower respiratory infection Acute bacterial sinusitis Injury of right lower extremity Lower leg pain Atherosclerotic heart disease of craig coronary artery with unstable angina pectoris Diastolic congestive heart failure Hx of skin cancer, basal cell 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 region Intervertebral disc disorder with radiculopathy of lumbosacral region History of myocardial infarction Hypertension Hypercholesterolemia Hx of gastroesophageal reflux (GERD) CAD (coronary artery disease) Opioid contract exists Encounter for long-term use of opiate analgesic Surgical History Hx of cholecystectomy History of hysterectomy for cancer Stented coronary artery Family History Father CAD (coronary artery disease) Hypertension Stroke Cancer Mother Hypertension Cancer Denies family history of Diabetes Clotting disorder Dementia Chronic kidney disease (CKD) Suicide Anesthesia complication Bleeding disorder Lung disease Social History Smoking and tobacco/nicotine status: former use of tobacco/nicotine Second hand smoke exposure: No Alcohol intake: never Substance/Drug Use: never Household members: significant other Marital status: / Current occupational status: retired and disabled Vitals/I&O/Wt Last Vital Signs Temp 98.1 F 07/16/23 16:00 Pulse 81 07/16/23 16:00 Resp 18 07/16/23 16:00 BP 137/86 07/16/23 16:00 Pulse Ox 95 07/16/23 16:00 O2 Del Method Nasal Cannula 07/16/23 16:00 O2 Flow Rate 2 07/15/23 11:48 07/16/23 07/16/23 07/16/23 06:59 14:59 22:59 Intake Total 220 / 1920 755 / 755 Output Total 1700 / 5275 1650 / 1650 Balance -1480 / -3355 -895 / -895 Weight last 48 hrs Weight 280 lb 14.4 oz Weight 285 lb 3.2 oz Weight 283 lb 2 oz Physical Exam 2 Narrative: GENERAL: The patient is alert and oriented times three. Not in any acute distress. HEENT: No significant pallor, icterus or lymphadenopathy.Oral cavity: There are no mucous membrane lesions. NECK: Trachea appears to be central. No masses noted. No JVD or thyromegaly appreciated. RESPIRATORY: Chest is symmetrical. No intercostals muscle retraction or any accessory muscle activation. There is no chest wall tenderness. Breath sounds are heard bilaterally. Few fine Rales at the bases. No evidence of any consolidation. BREASTS: Deferred. HEART: The heart sounds are normal. No S3 or S4. No significant murmurs. No pericardial rub ABDOMEN: No vessel pulsations or distention. No tenderness. No organomegaly appreciated. Bowel sounds are normally heard. : Deferred. RECTAL: Deferred. LYMPHATIC: No lymphadenopathy noted in the neck. EXTREMITIES: 2+ edema both lower extremities. No cyanosis MUSCULOSKELETAL: No acute joint deformities or swelling SKIN: There are no significant rashes or ecchymosis NEUROPSYCHIATRIC: The patient is alert and oriented x to. Appears to be in a good mood. No tremors or rigidity noted. Urinary Catheter Management: Bahena: Cath Placed During This Visit: yes Reason for Continuing Indwelling Catheter: Acute Urinary Retention or Obstruction Urinary Catheter Date of Insertion: 07/14/23 Urinary Catheter Time of Insertion: 21:00 Data 07/16/23 03:46 07/16/23 03:46 Other Labs: Laboratory Last Values WBC 5.25 10^3/uL (3.29-11.43) 07/16/23 03:46 RBC 3.95 10^6/uL (3.85-5.65) 07/16/23 03:46 Hgb 11.60 g/dL (11.27-16.99) 07/16/23 03:46 Hct 37.8 % (36-47) 07/16/23 03:46 MCV 95.7 fl (85-98) 07/16/23 03:46 MCH 29.4 pg (27-33) 07/16/23 03:46 MCHC 30.7 g/dL (30-55) 07/16/23 03:46 RDW 13.9 % (12.1-15.1) 07/16/23 03:46 Plt Count 207 10^3/cmm (157-399) 07/16/23 03:46 MPV 9.6 fL (7.4-10.4) 07/16/23 03:46 Neut % (Auto) 71.6 % 07/16/23 03:46 Lymph % (Auto) 13.7 % 07/16/23 03:46 Parmer % (Auto) 11.8 % 07/16/23 03:46 Eos % (Auto) 2.1 % 07/16/23 03:46 Baso % (Auto) 0.4 % 07/16/23 03:46 Neut # (Auto) 3.76 10^3/uL (1.8-7.7) 07/16/23 03:46 Lymph # (Auto) 0.7 10^3/uL (0.8-4.8) L 07/16/23 03:46 Parmer # (Auto) 0.6 10^3/uL (0.2-0.9) 07/16/23 03:46 Eos # (Auto) 0.1 10^3/uL (0.0-0.8) 07/16/23 03:46 Baso # (Auto) 0.0 10^3/uL (0.0-0.1) 07/16/23 03:46 Nucleated RBC % (auto) 0 % 07/16/23 03:46 Nucleated RBCs # 0.0 /100WBC 07/16/23 03:46 PT 15.10 SECONDS (12.1-14.9) H 07/14/23 18:54 INR 1.15 (0.8-1.2) 07/14/23 18:54 APTT 33.0 SECONDS (23.9-36.7) 07/14/23 14:04 Specimen Type Venous 07/14/23 14:03 Sample Site Not specified 07/14/23 14:03 Han Test N/a 07/14/23 14:03 VBG pH 7.41 (7.32-7.42) 07/14/23 14:03 VBG pCO2 54.1 mmHg (41-51) H 07/14/23 14:03 VBG pO2 44.9 mmHg (25-40) H 07/14/23 14:03 VBG HCO3 34.5 mmol/L (24-28) H 07/14/23 14:03 VBG Base Excess 8.3 mmol/L (-3.0-3.0) H 07/14/23 14:03 VBG Hematocrit 37.3 % (37-47) 07/14/23 14:03 O2 Delivery Device N/a 07/14/23 14:03 Preschool Disability Teacher ID Amh 07/14/23 14:03 Sodium 136 mmol/L (136-145) 07/16/23 03:46 Potassium 3.3 mmol/L (3.5-5.1) L 07/16/23 03:46 Chloride 92 mmol/L (98-107) L 07/16/23 03:46 Carbon Dioxide 37 mmol/L (22-29) H 07/16/23 03:46 Anion Gap 10.3 (5-19) 07/16/23 03:46 BUN 10 mg/dL (8-23) 07/16/23 03:46 Creatinine 0.6 mg/dL (0.5-0.9) 07/16/23 03:46 GFR Calculation Not Reportable 07/16/23 03:46 Glucose 124 mg/dL (65-115) H 07/16/23 03:46 Calculated Osmolality 282 mOsm/kg (285-295) L 07/16/23 03:46 Lactic Acid 1.0 mmol/L (0.5-2.2) 07/15/23 06:00 Calcium 10.2 mg/dL (8.5-10.5) 07/16/23 03:46 Phosphorus 2.8 mg/dL (2.5-4.5) 07/16/23 03:46 Magnesium 1.6 mg/dL (1.7-2.3) L 07/16/23 03:46 Total Bilirubin 0.6 mg/dL (0.15-1.2) 07/16/23 03:46 AST 20 U/L (0-32) 07/16/23 03:46 ALT 16 U/L (0-33) 07/16/23 03:46 Alkaline Phosphatase 89 U/L (35-105) 07/16/23 03:46 Troponin T Baseline 25 ng/L (0-10) H 07/14/23 14:04 Troponin T 120 Minute 24.03 ng/L (0-10) H 07/14/23 18:54 Delta Troponin T -0.97 ABS# (0-10) L 07/14/23 18:54 Troponin T Hi Sens 6Hr 23.41 ng/L (0-10) H 07/15/23 06:00 Troponin T Hi Sens 6Hr Delta -1.59 ng/L (0-12) L 07/15/23 06:00 C-Reactive Protein 44.1 mg/L (0.0-4.9) H 07/14/23 14:04 NT-Pro-B Natriuret Pep 3782 pg/mL (0-125) H 07/16/23 03:46 Total Protein 6.2 g/dL (6.6-8.7) L 07/16/23 03:46 Albumin 3.4 g/dL (3.5-5.2) L 07/16/23 03:46 Globulin 2.8 g/dL (1.3-4.6) 07/16/23 03:46 Procalcitonin 0.07 ng/mL (0-0.5) 07/14/23 14:04 TSH 1.00 uIU/mL (0.27-4.20) 07/15/23 06:00 Adenovirus (PCR) Not detected (NOT DETECT) 07/14/23 16:34 C. pneumoniae DNA (PCR) Not detected (NOT DETECT) 07/14/23 16:34 C. difficile Tox (PCR) Not detected (NOT DETECTED) 07/14/23 21:30 Coronavirus 229E (PCR) Not detected (NOT DETECT) 07/14/23 16:34 Human Metapneumovir PCR Not detected (NOT DETECT) 07/14/23 16:34 Influenza A (H1) PCR Not detected (NOT DETECT) 07/14/23 16:34 Influ A (H1/09) PCR Not detected (NOT DETECT) 07/14/23 16:34 Influenza A (H3) PCR Not detected (NOT DETECT) 07/14/23 16:34 Influenza Type A (PCR) Not detected (NOT DETECT) 07/14/23 16:34 Influenza Type B (PCR) Not detected (NOT DETECT) 07/14/23 16:34 M. pneumoniae (PCR) Not detected (NOT DETECT) 07/14/23 16:34 Parainfluenza 1 (PCR) Not detected (NOT DETECT) 07/14/23 16:34 Parainfluenza 2 (PCR) Not detected (NOT DETECT) 07/14/23 16:34 Parainfluenza 3 (PCR) Not detected (NOT DETECT) 07/14/23 16:34 Parainfluenza 4 (PCR) Not detected (NOT DETECT) 07/14/23 16:34 RSV Type A (PCR) Not detected (NOT DETECT) 07/14/23 16:34 RSV Type B (PCR) Not detected (NOT DETECT) 07/14/23 16:34 Entero/Rhino (PCR) Not detected (NOT DETECT) 07/14/23 16:34 SARS-CoV-2 (PCR) Not detected (NOT DETECT) 07/14/23 16:34 Other data: Echocardiogram done on 07/14/2023 LV systolic function is moderate to severely reduced with EF of 30-35%. Moderate to severe global hypokinesis RV is moderately hypokinetic Biatrial dilation Moderate mitral regurgitation Moderate tricuspid regurgitation Moderate pulmonary hypertension IVC is dilated. Compared to prior echocardiogram from 2019, LV systolic function has significantly decreased. RV function is also low now. Mitral regurgitation and tricuspid regurgitation have progressed and are moderate now Myocardial perfusion imaging in September or 2022 1. Myocardial perfusion imaging revealing moderate area of persistent decreased tracer uptake involving all the apical segments and mid anteroseptal segment with a subtle area of reversibility in the apical inferior region suggesting myocardial scarring involving the distribution of all the 3 coronary arteries with a very subtle area of hattie-infarction ischemia mainly in the distribution of the distal RCA. 2. Normal LV ejection fraction of 57%. 3. LV wall motion analysis revealing mild diffuse hypokinesia of the LV apex 4. Mildly dilated LV cavity with end-systolic volume of 64 mL No similar previous studies are available for comparison A&P Assessment and plan (1) Atherosclerotic heart disease of craig coronary artery with other forms of angina pectoris: Possibility of her having had a coronary event causing LV dysfunction or ongoing ischemia causing LV dysfunction and heart failure are considerations. For further evaluation of the coronary status, a Myocardial perfusion imaging would be appropriate. This was discussed with the patient's family and they understood this well and consented to proceed. (2) Atrial fibrillation, new onset: The heart rate is under control. Patient is on Eliquis. I may hold off on this for the time being. This may be replaced with Lovenox. Based on the results of Myocardial perfusion imaging, further recommendations will be made (3) Congestive heart failure: Patient may be carefully treated with IV diuretics and other symptomatic measures. Qualifiers: Heart failure chronicity: chronic Heart failure type: unspecified Qualified Code(s): I50.9 - Heart failure, unspecified (4) Hypercholesterolemia: May continue on the current medications (5) Hypertension: The blood pressure seems to be fairly under control. May continue on the current medications. Qualifiers: Hypertension type: essential hypertension Qualified Code(s): I10 - Essential (primary) hypertension Plan Other problems are Alzheimer's disease possible multifocal pneumonia DJD Patient the clinical progress and the results of the above, further recommendations will be made. Thank for the opportunity to eval this patient to make these recommendations. Consult Attestations 2 Medical Necessity Statement: patient requires continued hospital stay for close monitoring and further management Coding Level of Care Code 91863 Diagnoses Atherosclerotic heart disease of craig coronary artery with other forms of angina pectoris I25.118 Atrial fibrillation, new onset I48.91 Chronic congestive heart failure, unspecified heart failure type I50.9 Heart failure chronicity: chronic Heart failure type: unspecified Hypercholesterolemia E78.00 Essential hypertension I10 Hypertension type: essential hypertension
[2023-07-16] MEDS: fluoxetine 20 mg Capsule PO (17:32)
[2023-07-16] MEDS: clopidogrel 75 mg Tablet PO (17:32)
[2023-07-16] MEDS: atorvastatin 40 mg Tablet PO (17:32)
[2023-07-16] MEDS: famotidine 20 mg Tablet 40 MG PO (17:32)
[2023-07-16] MEDS: lisinopril 20 mg Tablet 40 MG PO (17:32)
[2023-07-16] MEDS: pantoprazole 40 mg SDV IVP (17:32)
[2023-07-16] MEDS: cefTRIAXone 1,000 MG in sodium chloride 0.9% (plus) 50 ML 100 MG IV (17:33)
--- NOTE | 2023-07-16 17:39 | ECG_ITS ---
[facility] Test Date: 2023-07-17 Pat Name: Melvi Jaeger Department: Room: 112 Gender: Female Corporate Safety Manager: Leila Yepez : 1950 Requested By: Axel Gibson Order Number: [id number] Nile MD: Axel Gibson M.D. Interpretive Statements NAME OF STUDY: LEXISCAN SESTAMIBI STRESS TEST INDICATION: CHF, PROCEDURE: At the baseline, the EKG revealed atrial fibrillation with a ventricular rate of 93 bpm. Poor R wave progression. Diffuse nonspecific T wave changes. Features of possible old anterior wall myocardial infarction. The baseline heart was 93 bpm with a blood pressue of 127/77 mm of Hg Lexiscan was infused over a period of 20 seconds. A total of 0.4 milligrams of Lexiscan was infused. The stress phase was continued for a total of 5 minutes. Heart rate at the end of the stress phase was 103 bpm with a blood pressure 134/83 mm of Hg. The EKG at the peak infusion revealed no significant changes. Sestamibi was injected 20 seconds after the Lexiscan infusion. Heart rate at the end of the recovery phase was 96 bpm with a blood pressure of 123/91 mm of Hg. CONCLUSION: 1. No significant EKG changes with the LexiScan infusion 2. No LexiScan induced chest pain or cardiac arrhythmia 3. Normal blood pressure and heart rate response 4. Sestamibi/sestamibi perfusion scan pending; see separate report. Electronically Signed On 07-17-2023 18:55:43 MANAGER BUSINESS by Axel Gibson M.D. [email or web address]
[2023-07-16] MEDS: azithromycin 500 MG in sodium chloride 0.9% 250 ML 250 MG IV (18:13)
[2023-07-16] MEDS: enoxaparin 120 mg/0.8 mL Syringe SUBCUT (20:45)
[2023-07-16] MEDS: pramipexole 0.25 mg Tablet 0.125 MG PO (20:45)
[2023-07-17] VITALS (9 sets, daily range): BP systolic 93–140; BP diastolic 64–106; PULSE 72–103; RESP 13–22; TEMP 36.8–37.3; O2SAT 85–99; BMI 49.1
[2023-07-17 04:37] LABS: Basophils % 0.4 %; Eosinophils # 0.1 10^3/uL (0.0-0.8); Eosinophils % 1.8 %; Hematocrit 38.2 % (36-47); Lymphocytes # 0.7 10^3/uL (0.8-4.8); Lymphocytes % 13.4 %; Mean Corpuscular HGB Conc 30.6 g/dL (30-55); Mean Corpuscular Hemoglobin 28.8 pg (27-33); Mean Corpuscular Volume 94.1 fl (85-98); Mean Platelet Volume 9.6 fL (7.4-10.4); Monocytes # 0.5 10^3/uL (0.2-0.9); Monocytes % 10.6 %; Neutrophils # 3.67 10^3/uL (1.8-7.7); Neutrophils % 73.4 %; Nucleated Red Blood Cells % 0 %; Platelet Count 213 10^3/cmm (157-399); Red Blood Count 4.06 10^6/uL (3.85-5.65); Red Cell Distribution Width 13.7 % (12.1-15.1)
[2023-07-17 05:03] LABS: Alanine Aminotransferase 16 U/L (0-33); Albumin Level 3.4 g/dL (3.5-5.2); Alkaline Phosphatase 87 U/L (35-105); Anion Gap 14.4 (5-19); Aspartate Amino Transferase 22 U/L (0-32); Blood Urea Nitrogen 12 mg/dL (8-23); Calcium 10.2 mg/dL (8.5-10.5); Carbon Dioxide 34 mmol/L (22-29); Chloride 90 mmol/L (98-107); Globulin 2.9 g/dL (1.3-4.6); Glucose 138 mg/dL (65-115); Magnesium 1.7 mg/dL (1.7-2.3); Osmolality Calculated 282 mOsm/kg (285-295); Phosphorus 3.3 mg/dL (2.5-4.5); Potassium 3.4 mmol/L (3.5-5.1); Sodium 135 mmol/L (136-145); Total Bilirubin 0.6 mg/dL (0.15-1.2); Total Protein 6.3 g/dL (6.6-8.7)
[2023-07-17 05:04] LABS: NT Pro B Type Natriuretic Pept 4269 pg/mL (0-125)
[2023-07-17] MEDS: regadenoson 0.4 Mg/5 ml Syringe IVP (07:32)
--- NOTE | 2023-07-17 08:00 | NMCV_ITS ---
NM simin perf SPECT r/s* [id number] Melvi Jaeger Age: 73 Gender: F : 1950 Exam Date: 07/17/2023 06:34 Ordering Phys: Axel Gibson MD ([email or web address]) Technologist: LORENA Doe Exam Location: [facility] Indications: CHEST PAIN STRESS TEST Please see separate stress test report in [facility] for full findings IMAGE PROTOCOL Rest/Stress 1 Lexiscan Day Radiopharmaceutical Dose (mCi) Administration Site Administered by Rest: Tc-99m 10.6 IV LORENA Velasco Sestamibi Stress:Tc-99m 33.0 IV LORENA Velasco Sestamibi Rest: 17-Jul-2023 60 Discovery 630 Stress: 17-Jul-2023 30 Discovery 630 0.4mg Lexiscan. Supine position only as patient was unable to lay prone. SPECT RESULTS Technical Quality: Excellent Raw Data Analysis: Normal Image Corrections: No attenuation or motion correction applied Summed Stress Score: 6 Summed Rest Score: 10 Summed Difference Score: 0 PERFUSION FINDINGS A small to moderate area of moderate to severely decreased tracer uptake involving the mid anteroseptal, apical septal and LV apex regions with no significant reversibility. FUNCTIONAL RESULTS (calculated via Gated SPECT) Stress Image LV EF (%): 36 Stress EDV (mL):129 TID: 0.99 Stress ESV (mL):82 FUNCTIONAL FINDINGS: Segmental wall motion analysis revealed diffuse hypokinesia of the left ventricle, more so of the apex. Mildly dilated LV cavity IMPRESSIONS 1. Myocardial perfusion imaging revealing small to moderate area of fixed defect involving the mid anteroseptal, apical septal and LV apex suggesting myocardial scarring in the distribution of the left anterior descending artery 2. Diminished LV ejection fraction of 36% 3. LV wall motion analysis revealing diffuse hypokinesia of the left ventricle, more so of the apex 4. Mildly dilated LV cavity with end-systolic volume of 82 ml Compared to the study from 09/23/2022, there is drop in the LV ejection fraction with no evidence of ischemia Dr Axel Gibson MD [facility] (Electronically Signed) Final Date: 17 July 2023 11:47 S
[2023-07-17] MEDS: metoprolol tartrate 50 mg Tablet PO ×2 (09:11→18:15)
[2023-07-17] MEDS: FUROsemide 10 mg/mL SDV 4mL 40 MG IVP ×2 (09:11→21:16)
[2023-07-17] MEDS: BuSPIRONE 10 mg Tablet 15 MG PO ×2 (09:11→18:15)
[2023-07-17] MEDS: metOLazone 5 MG Tablet PO ×2 (09:19→09:26)
[2023-07-17] MEDS: lidocaine 1% 5 ML in potassium chloride premix 100 ML 26.25 ML IV (09:19)
[2023-07-17] MEDS: potassium chloride ER 20 mEq Tablet 40 MEQ PO ×2 (09:25→18:14)
[2023-07-17] MEDS: magnesium lactate 84 mg Tablet PO ×2 (09:26→18:14)
[2023-07-17] MEDS: enoxaparin 120 mg/0.8 mL Syringe SUBCUT (09:28)
[2023-07-17] MEDS: nystatin powder 30 gm Btl 1 APPLIC TOPICAL ×2 (09:28→18:17)
--- NOTE | 2023-07-17 11:05 | PM.PN ---
Subjective Subjective: Patient had a Myocardial perfusion imaging today. She was found to have no evidence of ischemia. She has an area of fixed defect in the distribution of the left anterior descending artery. Medications: Medication Review Details: Current Medications Acetaminophen (Acetaminophen 325 Mg Tablet) 650 mg PO Q6H PRN PRN Reason: Mild/Mod Pain Or Temp >/= 101 Acetaminophen (Acetaminophen 500 Mg Tablet) 1,000 mg PO Q6H PRN PRN Reason: Pain Aminophylline (Aminophylline 25 Mg/Ml Sdv 10 Ml) 25 mg IVP Q2M PRN PRN Reason: see dose instructions Stop: 07/18/23 07:20 Amlodipine Besylate (Amlodipine 10 Mg Tablet) 10 mg PO QAM [facility] Last Admin: 07/17/23 06:40 Dose: Not Given Atorvastatin Calcium (Atorvastatin 40 Mg Tablet) 40 mg PO QPM [facility] Last Admin: 07/16/23 17:32 Dose: 40 mg Baclofen (Baclofen 10 Mg Tablet) 20 mg PO TID PRN PRN Reason: spasms Buspirone HCl (Buspirone 10 Mg Tablet) 15 mg PO BID [facility] Last Admin: 07/17/23 09:11 Dose: 15 mg Cetirizine HCl (Cetirizine 10 Mg Tablet) 10 mg PO QAM [facility] Last Admin: 07/17/23 06:40 Dose: Not Given Clopidogrel Bisulfate (Clopidogrel 75 Mg Tablet) 75 mg PO QPM [facility] Last Admin: 07/16/23 17:32 Dose: 75 mg Donepezil HCl (Donepezil 5 Mg Tablet) 10 mg PO QAM [facility] Last Admin: 07/17/23 06:40 Dose: Not Given Enoxaparin Sodium (Enoxaparin 120 Mg/0.8 Ml Syringe) 120 mg SUBCUT Q12H [facility] Last Admin: 07/17/23 09:28 Dose: 120 mg Famotidine (Famotidine 20 Mg Tablet) 40 mg PO QPM [facility] Last Admin: 07/16/23 17:32 Dose: 40 mg Fluoxetine HCl (Fluoxetine 20 Mg Capsule) 20 mg PO QPM [facility] Last Admin: 07/16/23 17:32 Dose: 20 mg Furosemide (Furosemide 10 Mg/Ml Sdv 4ml) 40 mg IVP Q12H [facility] Last Admin: 07/17/23 09:11 Dose: 40 mg Ceftriaxone Sodium 1,000 mg/ (Sodium Chloride) 50 mls @ 100 mls/hr IV Q24H [facility]; Protocol Last Infusion: 07/16/23 18:10 Dose: Infused Azithromycin 500 mg/ Sodium (Chloride) 250 mls @ 250 mls/hr IV Q24H [facility]; Protocol Last Infusion: 07/16/23 19:41 Dose: Infused Lidocaine HCl 5 ml/ Potassium (Chloride) 105 mls @ 26.25 mls/hr IV ONCE ONE Stop: 07/17/23 12:27 Last Admin: 07/17/23 09:19 Dose: 26.25 mls/hr Isosorbide Mononitrate (Isosorbide Mononitrate Er 30 Mg Tablet) 60 mg PO QAM [facility] Last Admin: 07/17/23 06:40 Dose: Not Given Lisinopril (Lisinopril 20 Mg Tablet) 40 mg PO QPM [facility] Last Admin: 07/16/23 17:32 Dose: 40 mg Magnesium Lactate (Magnesium Lactate 84 Mg Tablet) 84 mg PO BID [facility] Last Admin: 07/17/23 09:26 Dose: 84 mg Metoprolol Tartrate (Metoprolol Tartrate 50 Mg Tablet) 50 mg PO BID [facility] Last Admin: 07/17/23 09:11 Dose: 50 mg Naloxone HCl (Naloxone 0.4 Mg/Ml Sdv) 0.1 mg IVP Q2M PRN PRN Reason: OPIATERV Nitroglycerin (Nitroglycerin 0.4 Mg Sublingual Tablet) 0.4 mg SUBLINGUAL Q5M PRN PRN Reason: Chest Pain Nitroglycerin (Nitroglycerin 0.4 Mg Sublingual Tablet) 0.4 mg SUBLINGUAL Q5M PRN PRN Reason: CHEST PAIN Stop: 07/18/23 07:20 Non-Formulary Medication (Oxycodone-Acetaminophen) 1 tab PO Q8H PRN PRN Reason: Pain Non-Formulary Medication (Lactase [Lactaid]) 3,000 unit PO TID [facility] Last Admin: 07/16/23 08:56 Dose: Not Given Non-Formulary Medication (Simethicone [Gas-X Extra Strength]) 125 mg PO BID [facility] Last Admin: 07/16/23 09:44 Dose: Not Given Nystatin (Nystatin Powder 30 Gm Btl) 1 applic TOPICAL BID [facility] Last Admin: 07/17/23 09:28 Dose: 1 applic Ondansetron HCl (Ondansetron 2 Mg/Ml Sdv 2 Ml) 4 mg IVP Q8H PRN PRN Reason: vomiting, or N/V if npo Ondansetron HCl (Ondansetron 2 Mg/Ml Sdv 2 Ml) 4 mg IVP Q2M PRN PRN Reason: NAUSEA Pantoprazole Sodium (Pantoprazole 40 Mg Sdv) 40 mg IVP Q24H [facility] Last Admin: 07/16/23 17:32 Dose: 40 mg Potassium Chloride (Potassium Chloride Er 20 Meq Tablet) 40 meq PO Q12H [facility] Stop: 07/19/23 04:16 Last Admin: 07/17/23 09:25 Dose: 40 meq Potassium Chloride (Potassium Chloride Er 20 Meq Tablet) 20 meq PO QAM [facility] Last Admin: 07/17/23 06:40 Dose: Not Given Pramipexole Dihydrochloride (Pramipexole 0.25 Mg Tablet) 0.125 mg PO BEDTIME [facility] Last Admin: 07/16/23 20:45 Dose: 0.125 mg Vitals/I&O/Wt Last Vital Signs Temp 98.9 F 07/17/23 08:00 Pulse 103 H 07/17/23 08:00 Resp 22 H 07/17/23 08:00 BP 93/67 07/17/23 08:00 Pulse Ox 89 L 07/17/23 08:00 O2 Del Method Room Air 07/17/23 08:00 O2 Flow Rate 2 07/15/23 11:48 07/16/23 07/17/23 07/17/23 22:59 06:59 14:59 Intake Total 700 / 1455 Output Total 1750 / 3400 Balance 700 / -195 -1750 / -1945 Weight last 48 hrs Weight 277 lb 4 oz Weight 280 lb 14.4 oz Physical Exam Narrative: GENERAL: The patient is alert and oriented times three. Not in any acute distress. HEENT: No significant pallor, icterus or lymphadenopathy.Oral cavity: There are no mucous membrane lesions. NECK: Trachea appears to be central. No masses noted. No JVD or thyromegaly appreciated. RESPIRATORY: Chest is symmetrical. No intercostals muscle retraction or any accessory muscle activation. There is no chest wall tenderness. Breath sounds are heard bilaterally. Few fine Rales at the bases. No evidence of any consolidation. BREASTS: Deferred. HEART: The heart sounds are normal. No S3 or S4. No significant murmurs. No pericardial rub ABDOMEN: No vessel pulsations or distention. No tenderness. No organomegaly appreciated. Bowel sounds are normally heard. : Deferred. RECTAL: Deferred. LYMPHATIC: No lymphadenopathy noted in the neck. EXTREMITIES:1- 2+ edema both lower extremities. No cyanosis MUSCULOSKELETAL: No acute joint deformities or swelling SKIN: There are no significant rashes or ecchymosis NEUROPSYCHIATRIC: The patient is alert and oriented x to. Appears to be in a good mood. No tremors or rigidity noted. Urinary Catheter Management: Bahena: Cath Placed During This Visit: yes Reason for Continuing Indwelling Catheter: Other Urinary Catheter Date of Insertion: 07/14/23 Urinary Catheter Time of Insertion: 21:00 Data 07/17/23 04:30 07/17/23 04:30 Other Labs: Laboratory Last Values WBC 5.00 10^3/uL (3.29-11.43) 07/17/23 04:30 RBC 4.06 10^6/uL (3.85-5.65) 07/17/23 04:30 Hgb 11.70 g/dL (11.27-16.99) 07/17/23 04:30 Hct 38.2 % (36-47) 07/17/23 04:30 MCV 94.1 fl (85-98) 07/17/23 04:30 MCH 28.8 pg (27-33) 07/17/23 04:30 MCHC 30.6 g/dL (30-55) 07/17/23 04:30 RDW 13.7 % (12.1-15.1) 07/17/23 04:30 Plt Count 213 10^3/cmm (157-399) 07/17/23 04:30 MPV 9.6 fL (7.4-10.4) 07/17/23 04:30 Neut % (Auto) 73.4 % 07/17/23 04:30 Lymph % (Auto) 13.4 % 07/17/23 04:30 [place] % (Auto) 10.6 % 07/17/23 04:30 Eos % (Auto) 1.8 % 07/17/23 04:30 Baso % (Auto) 0.4 % 07/17/23 04:30 Neut # (Auto) 3.67 10^3/uL (1.8-7.7) 07/17/23 04:30 Lymph # (Auto) 0.7 10^3/uL (0.8-4.8) L 07/17/23 04:30 [place] # (Auto) 0.5 10^3/uL (0.2-0.9) 07/17/23 04:30 Eos # (Auto) 0.1 10^3/uL (0.0-0.8) 07/17/23 04:30 Baso # (Auto) 0.0 10^3/uL (0.0-0.1) 07/17/23 04:30 Nucleated RBC % (auto) 0 % 07/17/23 04:30 Nucleated RBCs # 0.0 /100WBC 07/17/23 04:30 PT 15.10 SECONDS (12.1-14.9) H 07/14/23 18:54 INR 1.15 (0.8-1.2) 07/14/23 18:54 APTT 33.0 SECONDS (23.9-36.7) 07/14/23 14:04 Specimen Type Venous 07/14/23 14:03 Sample Site Not specified 07/14/23 14:03 Han Test N/a 07/14/23 14:03 VBG pH 7.41 (7.32-7.42) 07/14/23 14:03 VBG pCO2 54.1 mmHg (41-51) H 07/14/23 14:03 VBG pO2 44.9 mmHg (25-40) H 07/14/23 14:03 VBG HCO3 34.5 mmol/L (24-28) H 07/14/23 14:03 VBG Base Excess 8.3 mmol/L (-3.0-3.0) H 07/14/23 14:03 VBG Hematocrit 37.3 % (37-47) 07/14/23 14:03 O2 Delivery Device N/a 07/14/23 14:03 Elementary Teacher ID Amh 07/14/23 14:03 Sodium 135 mmol/L (136-145) L 07/17/23 04:30 Potassium 3.4 mmol/L (3.5-5.1) L 07/17/23 04:30 Chloride 90 mmol/L (98-107) L 07/17/23 04:30 Carbon Dioxide 34 mmol/L (22-29) H 07/17/23 04:30 Anion Gap 14.4 (5-19) 07/17/23 04:30 BUN 12 mg/dL (8-23) 07/17/23 04:30 Creatinine 0.6 mg/dL (0.5-0.9) 07/17/23 04:30 GFR Calculation Not Reportable 07/17/23 04:30 Glucose 138 mg/dL (65-115) H 07/17/23 04:30 Calculated Osmolality 282 mOsm/kg (285-295) L 07/17/23 04:30 Lactic Acid 1.0 mmol/L (0.5-2.2) 07/15/23 06:00 Calcium 10.2 mg/dL (8.5-10.5) 07/17/23 04:30 Phosphorus 3.3 mg/dL (2.5-4.5) 07/17/23 04:30 Magnesium 1.7 mg/dL (1.7-2.3) 07/17/23 04:30 Total Bilirubin 0.6 mg/dL (0.15-1.2) 07/17/23 04:30 AST 22 U/L (0-32) 07/17/23 04:30 ALT 16 U/L (0-33) 07/17/23 04:30 Alkaline Phosphatase 87 U/L (35-105) 07/17/23 04:30 Troponin T Baseline 25 ng/L (0-10) H 07/14/23 14:04 Troponin T 120 Minute 24.03 ng/L (0-10) H 07/14/23 18:54 Delta Troponin T -0.97 ABS# (0-10) L 07/14/23 18:54 Troponin T Hi Sens 6Hr 23.41 ng/L (0-10) H 07/15/23 06:00 Troponin T Hi Sens 6Hr Delta -1.59 ng/L (0-12) L 07/15/23 06:00 C-Reactive Protein 44.1 mg/L (0.0-4.9) H 07/14/23 14:04 NT-Pro-B Natriuret Pep 4269 pg/mL (0-125) H 07/17/23 04:30 Total Protein 6.3 g/dL (6.6-8.7) L 07/17/23 04:30 Albumin 3.4 g/dL (3.5-5.2) L 07/17/23 04:30 Globulin 2.9 g/dL (1.3-4.6) 07/17/23 04:30 Procalcitonin 0.07 ng/mL (0-0.5) 07/14/23 14:04 TSH 1.00 uIU/mL (0.27-4.20) 07/15/23 06:00 Adenovirus (PCR) Not detected (NOT DETECT) 07/14/23 16:34 C. pneumoniae DNA (PCR) Not detected (NOT DETECT) 07/14/23 16:34 C. difficile Tox (PCR) Not detected (NOT DETECTED) 07/14/23 21:30 Coronavirus 229E (PCR) Not detected (NOT DETECT) 07/14/23 16:34 Human Metapneumovir PCR Not detected (NOT DETECT) 07/14/23 16:34 Influenza A (H1) PCR Not detected (NOT DETECT) 07/14/23 16:34 Influ A (H1/09) PCR Not detected (NOT DETECT) 07/14/23 16:34 Influenza A (H3) PCR Not detected (NOT DETECT) 07/14/23 16:34 Influenza Type A (PCR) Not detected (NOT DETECT) 07/14/23 16:34 Influenza Type B (PCR) Not detected (NOT DETECT) 07/14/23 16:34 M. pneumoniae (PCR) Not detected (NOT DETECT) 07/14/23 16:34 Parainfluenza 1 (PCR) Not detected (NOT DETECT) 07/14/23 16:34 Parainfluenza 2 (PCR) Not detected (NOT DETECT) 07/14/23 16:34 Parainfluenza 3 (PCR) Not detected (NOT DETECT) 07/14/23 16:34 Parainfluenza 4 (PCR) Not detected (NOT DETECT) 07/14/23 16:34 RSV Type A (PCR) Not detected (NOT DETECT) 07/14/23 16:34 RSV Type B (PCR) Not detected (NOT DETECT) 07/14/23 16:34 Entero/Rhino (PCR) Not detected (NOT DETECT) 07/14/23 16:34 SARS-CoV-2 (PCR) Not detected (NOT DETECT) 07/14/23 16:34 Micro: Microbiology 07/14/23 06:00 Blood Culture - Preliminary Blood 07/14/23 17:42 Blood Culture - Preliminary Blood A&P Assessment and plan (1) 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 She was found to have an area of fixed defect involving the anteroseptum, septum and the apex. No significant reversible defects were noted. At this point, she may not require any other intervention. (2) Atrial fibrillation, new onset: The patient may be placed back on the Eliquis. Continue other measures. (3) Congestive heart failure: For the cardiomyopathy, we may need to start her on Entresto. Since she is on lisinopril, I may replace that with the losartan as a bridge towards Entresto. Also will start on spironolactone 25 mg p.o. daily. Qualifiers: Heart failure type: unspecified Heart failure chronicity: chronic Qualified Code(s): I50.9 - Heart failure, unspecified (4) Hypercholesterolemia: May continue on the current medications (5) Hypertension: The blood pressure seems to be fairly under control. May continue on the current medications. 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
--- NOTE | 2023-07-17 11:31 | PC.SOCIAL ---
IMM Update pg 2 of IMM updated and reviewed w/ patient. Copy provided and copy dated, initialed and placed in chart.
--- NOTE | 2023-07-17 12:44 | P.PN_ITS ---
Subjective 2 Subjective: Patient was seen this morning, no chest pain overnight, she continues to have pitting edema but much improved she tells me, she continues to feel short of breath, is on 2 L Vitals/I&O/Wt Last Vital Signs Temp 98.3 F 07/17/23 12:00 Pulse 97 07/17/23 12:00 Resp 21 H 07/17/23 12:00 BP 122/91 07/17/23 12:00 Pulse Ox 95 07/17/23 12:00 O2 Del Method Nasal Cannula 07/17/23 12:00 O2 Flow Rate 2 07/15/23 11:48 07/16/23 07/17/23 07/17/23 22:59 06:59 14:59 Intake Total 700 / 1455 Output Total 1750 / 3400 Balance 700 / -195 -1750 / -1945 Weight last 48 hrs Weight 125.758 kg Weight 127.414 kg Physical Exam 2 Const: COMMON NORMALS: no acute distress and patient oriented x3 Resp: COMMON NORMALS: normal respiratory effort, No retractions and No use of accessory muscles AUSCULTATION: crackles Cardio: COMMON NORMALS: regular rate, regular rhythm, S1 normal heart sound present and S2 normal heart sound present RATE: regular rate RHYTHM: r egular rhythm HEART SOUNDS: S1 normal heart sound present and S2 normal heart sound present GI: COMMON NORMALS: Normal to inspection, nondistended, normoactive bowel sounds present and non-tender Extremity: NARRATIVE EXTREMITY EXAM: 2+ pitting edema Neuro: COMMON NORMALS: patient oriented x3 Psych: COMMON NORMALS: mental status grossly normal Urinary Catheter Management: Bahena: Cath Placed During This Visit: yes Reason for Continuing Indwelling Catheter: Other Urinary Catheter Date of Insertion: 07/14/23 Urinary Catheter Time of Insertion: 21:00 Data 07/17/23 04:30 07/17/23 04:30 Micro: Microbiology 07/14/23 06:00 Blood Culture - Preliminary Blood 07/14/23 17:42 Blood Culture - Preliminary Blood A&P Assessment and plan (1) Diastolic congestive heart failure: Qualifiers: Heart failure chronicity: acute Qualified Code(s): I50.31 - Acute diastolic (congestive) heart failure (2) Hypertension: Qualifiers: Hypertension type: essential hypertension Qualified Code(s): I10 - Essential (primary) hypertension (3) Acute on chronic diastolic (congestive) heart failure: (4) CAD (coronary artery disease): (5) Alzheimer disease: (6) Hypersomnia: (7) Acute hypoxemic respiratory failure: (8) Bilateral edema of lower extremity: (9) Anasarca: (10) Left lower lobe pneumonia: (11) Acute encephalopathy: (12) Atrial fibrillation, new onset: (13) Non-ST elevation ND (NSTEMI): Plan Acute hypoxic respiratory failure ? Secondary to left-sided multifocal pneumonia, ? With acute fluid overload, diastolic CHF exacerbation, 4+ pitting edema, anasarca, diffuse crackles on examination -cta chest - CT/CT angio chest PE protcl [id number]: 1[address] No CT findings to indicate pulmonary embolus. 2. Scattered predominant alveolar infiltrate within the left lung, more prominent lower left lung and upper left lung, with left trace posterior pleural effusion. Findings are most suggestive multifocal pneumonia of the left lung, for follow-up. 3. Mild cardiomegaly. 4. Arteriosclerosis of the thoracic aorta and mild coronary artery calcification. ? Plan, ? Sputum cultures, blood cultures, Pro-Rudolph 0.07, CRP 44.1, respiratory viral panel negative ? Rocephin - azithromycin, -Fluid restrictions at 1000 cc, uop 5.9 L ? Lasix 40 mg IV twice daily, 1 dose metolazone ? Monitor creatinine, monitor potassium ? Monitor respiratory status Left-sided multifocal pneumonia, as above Diastolic CHF, as above Atrial fibrillation ? No history of A-fib ? EKG shows A-fib, ? Serial EKGs, serial troponins, telemetry monitoring -Continue beta-juan - Eliquis 5 mg p.o. twice daily -cardiac echo NSTEMI CONCLUSIONS LV systolic function is moderate to severely reduced with EF of 30-35%. Moderate to severe global hypokinesis RV is moderately hypokinetic Biatrial dilation Moderate mitral regurgitation Moderate tricuspid regurgitation Moderate pulmonary hypertension IVC is dilated. Compared to prior echocardiogram from 2020, LV systolic function has significantly decreased. RV function is also low now. Mitral regurgitation and tricuspid regurgitation have progressed and are moderate now Cardiac catheterization in 2020 Conclusions 1. There is severe coronary artery disease with one vessel disease. Occluded recently placed distal ramus stent.. 2. Ramus was treated with three Balloon. Cardiac Recommendations * Patient has questionable compliance with medications. She mentioned she might not be taking her medicines and does not remember names of her medications. Patient has cognitive dysfunction. We attempted balloon angioplasty and were able to achieve JATINDER I-II flow however this vessel has poor outflow and multiple layers of stents. Given patient's poor compliance, multiple layers of stents and poor outflow we decided not to put another stent and treat residual stenosis. Plan, ? Continue Plavix, on aspirin, statin, beta-juan, send ?cardiology consulted, undergoing stress testing today Morbid obesity History of Alzheimer's disease Full code, ? Eliquis for DVT prophylaxis Plan for today, continue diuresis, continue antibiotics, cardiac stress test, Attestations 2 Medical Necessity Statement*: Patient requires hospitalization for acute hypoxic respiratory failure requiring further diuresis secondary to pneumonia, fluid overload, EF down to 30% requiring stress testing Diagnoses Acute diastolic congestive heart failure I50.31 Heart failure chronicity: acute Essential hypertension I10 Hypertension type: essential hypertension Acute on chronic diastolic (congestive) heart failure I50.33 CAD (coronary artery disease) I25.10 Alzheimer disease G30.9; F02.80 Hypersomnia G47.10 Acute hypoxemic respiratory failure J96.01 Bilateral edema of lower extremity R60.0 Anasarca R60.1 Left lower lobe pneumonia J18.9 Acute encephalopathy G93.40 Atrial fibrillation, new onset I48.91 Non-ST elevation ND (NSTEMI) I21.4
[2023-07-17] MEDS: pantoprazole 40 mg SDV IVP (16:38)
[2023-07-17] MEDS: azithromycin 500 MG in sodium chloride 0.9% 250 ML 250 MG IV (16:39)
[2023-07-17] MEDS: cefTRIAXone 1,000 MG in sodium chloride 0.9% (plus) 50 ML 100 MG IV (17:52)
[2023-07-17] MEDS: atorvastatin 40 mg Tablet PO (18:14)
[2023-07-17] MEDS: clopidogrel 75 mg Tablet PO (18:14)
[2023-07-17] MEDS: famotidine 20 mg Tablet 40 MG PO (18:14)
[2023-07-17] MEDS: fluoxetine 20 mg Capsule PO (18:15)
[2023-07-17] MEDS: apixaban 5 mg Tablet PO (20:28)
[2023-07-17] MEDS: pramipexole 0.25 mg Tablet 0.125 MG PO (20:28)
[2023-07-17] MEDS: acetaminophen 500 mg Tablet 650 MG PO (21:22)
[2023-07-18] VITALS (9 sets, daily range): BP systolic 102–144; BP diastolic 66–95; PULSE 79–102; RESP 16–28; TEMP 36.6–37.1; O2SAT 92–95
[2023-07-18 03:24] LABS: Basophils % 0.7 %; Eosinophils # 0.1 10^3/uL (0.0-0.8); Hematocrit 38.5 % (36-47); Lymphocytes # 0.7 10^3/uL (0.8-4.8); Lymphocytes % 17.2 %; Mean Corpuscular HGB Conc 30.9 g/dL (30-55); Mean Corpuscular Hemoglobin 29.4 pg (27-33); Mean Corpuscular Volume 95.1 fl (85-98); Mean Platelet Volume 9.5 fL (7.4-10.4); Monocytes # 0.5 10^3/uL (0.2-0.9); Monocytes % 11.4 %; Neutrophils % 67.2 %; Nucleated Red Blood Cells % 0 %; Platelet Count 226 10^3/cmm (157-399); Red Blood Count 4.05 10^6/uL (3.85-5.65); Red Cell Distribution Width 13.7 % (12.1-15.1); White Blood Count 4.31 10^3/uL (3.29-11.43)
[2023-07-18 03:50] LABS: Alanine Aminotransferase 16 U/L (0-33); Albumin Level 3.4 g/dL (3.5-5.2); Alkaline Phosphatase 82 U/L (35-105); Anion Gap 14.4 (5-19); Aspartate Amino Transferase 19 U/L (0-32); Blood Urea Nitrogen 11 mg/dL (8-23); Carbon Dioxide 36 mmol/L (22-29); Chloride 91 mmol/L (98-107); Globulin 2.9 g/dL (1.3-4.6); Glucose 119 mg/dL (65-115); Magnesium 1.5 mg/dL (1.7-2.3); Osmolality Calculated 287 mOsm/kg (285-295); Phosphorus 3.8 mg/dL (2.5-4.5); Potassium 3.4 mmol/L (3.5-5.1); Sodium 138 mmol/L (136-145); Total Bilirubin 0.6 mg/dL (0.15-1.2); Total Protein 6.3 g/dL (6.6-8.7)
[2023-07-18] MEDS: isosorbide mononitrate ER 30 mg Tablet 60 MG PO (06:09)
[2023-07-18] MEDS: potassium chloride ER 20 mEq Tablet 40 MEQ PO ×2 (06:09→17:44)
[2023-07-18] MEDS: cetirizine 10 mg Tablet PO (06:09)
[2023-07-18] MEDS: amlodipine 10 mg Tablet PO (06:09)
[2023-07-18] MEDS: donepezil 5 MG Tablet 10 MG PO (06:09)
[2023-07-18] MEDS: FUROsemide 10 mg/mL SDV 4mL 40 MG IVP ×2 (08:36→21:55)
[2023-07-18] MEDS: metoprolol tartrate 50 mg Tablet PO ×2 (08:37→17:44)
[2023-07-18] MEDS: spironolactone 25 mg Tablet PO (08:37)
[2023-07-18] MEDS: apixaban 5 mg Tablet PO ×2 (08:37→21:54)
[2023-07-18] MEDS: magnesium lactate 84 mg Tablet PO ×2 (08:37→17:42)
[2023-07-18] MEDS: losartan 50 mg Tablet PO (08:38)
[2023-07-18] MEDS: BuSPIRONE 10 mg Tablet 15 MG PO ×2 (08:39→17:43)
[2023-07-18] MEDS: nystatin powder 30 gm Btl 1 APPLIC TOPICAL ×2 (10:12→17:54)
--- NOTE | 2023-07-18 10:42 | P.PN_ITS ---
Subjective 2 Subjective: Patient is doing better. Ambulated with physical therapy. Still have moderate bilateral edema. Heart rate is well-controlled in the 70s to 80s atrial fibrillation. Vitals/I&O/Wt Last Vital Signs Temp 97.8 F 07/18/23 07:00 Pulse 92 07/18/23 07:00 Resp 16 07/18/23 07:00 BP 121/81 07/18/23 08:38 Pulse Ox 95 07/18/23 07:00 O2 Del Method Nasal Cannula 07/18/23 07:00 O2 Flow Rate 2 07/15/23 11:48 07/17/23 07/18/23 07/18/23 22:59 06:59 14:59 Intake Total 645 / 765 480 / 1245 240 / 240 Output Total 1200 / 2200 1300 / 3500 Balance -555 / -1435 -820 / -2255 240 / 240 Weight last 48 hrs Weight 264 lb Weight 277 lb 4 oz Physical Exam 2 Const: COMMON NORMALS: no acute distress and patient oriented x3 Resp: COMMON NORMALS: normal respiratory effort, No retractions and No use of accessory muscles AUSCULTATION: crackles Cardio: COMMON NORMALS: regular rate, regular rhythm, S1 normal heart sound present and S2 normal heart sound present RATE: regular rate RHYTHM: r egular rhythm HEART SOUNDS: S1 normal heart sound present and S2 normal heart sound present GI: COMMON NORMALS: Normal to inspection, nondistended, normoactive bowel sounds present and non-tender Extremity: NARRATIVE EXTREMITY EXAM: 2+ pitting edema Neuro: COMMON NORMALS: patient oriented x3 Psych: COMMON NORMALS: mental status grossly normal Urinary Catheter Management: Bahena: Cath Placed During This Visit: yes Reason for Continuing Indwelling Catheter: Acute Urinary Retention or Obstruction Urinary Catheter Date of Insertion: 07/14/23 Urinary Catheter Time of Insertion: 21:00 Data 07/18/23 03:12 07/18/23 03:12 A&P Assessment and plan (1) Congestive heart failure: Ejection fraction 35 to 40%. Symptoms improving. Still have mild to moderate bilateral edema continue diuresis. He is on losartan and beta-blockers. Patient might need to be switched to Entresto at later stage. Qualifiers: Heart failure chronicity: chronic Heart failure type: unspecified Qualified Code(s): I50.9 - Heart failure, unspecified (2) Hypertension: Adequately controlled Qualifiers: Hypertension type: essential hypertension Qualified Code(s): I10 - Essential (primary) hypertension (3) Atrial fibrillation, new onset: Continue rate controlling medications. Attestations 2 Medical Necessity Statement*: Defer to internal medicine Coding Level of Care Code Acute Code for [facility] Fwd Diagnoses Chronic congestive heart failure, unspecified heart failure type I50.9 Heart failure chronicity: chronic Heart failure type: unspecified Essential hypertension I10 Hypertension type: essential hypertension Atrial fibrillation, new onset I48.91
--- NOTE | 2023-07-18 15:02 | P.PN_ITS ---
Subjective 2 Subjective: Patient's feels significantly better today, she continues to have episodes of shortness of breath, and lower extremity edema but much improved Vitals/I&O/Wt Last Vital Signs Temp 98.2 F 07/18/23 11:42 Pulse 81 07/18/23 11:42 Resp 17 07/18/23 11:42 BP 102/73 07/18/23 11:42 Pulse Ox 95 07/18/23 11:42 O2 Del Method Nasal Cannula 07/18/23 11:42 O2 Flow Rate 2 07/15/23 11:48 07/18/23 07/18/23 07/18/23 06:59 14:59 22:59 Intake Total 480 / 1245 240 / 240 Output Total 1300 / 3500 1750 / 1750 Balance -820 / -2255 -1510 / -1510 Weight last 48 hrs Weight 119.748 kg Weight 125.758 kg Physical Exam 2 Const: COMMON NORMALS: no acute distress and patient oriented x3 Resp: COMMON NORMALS: normal respiratory effort, No retractions, No use of accessory muscles and clear to auscultation bilaterally AUSCULTATION: clear to auscultation bilaterally Cardio: COMMON NORMALS: regular rate, regular rhythm, S1 normal heart sound present and S2 normal heart sound present RATE: regular rate RHYTHM: r egular rhythm HEART SOUNDS: S1 normal heart sound present and S2 normal heart sound present GI: COMMON NORMALS: Normal to inspection, nondistended, normoactive bowel sounds present and non-tender Extremity: NARRATIVE EXTREMITY EXAM: 1+ pitting edema Neuro: COMMON NORMALS: patient oriented x3 Psych: COMMON NORMALS: mental status grossly normal Urinary Catheter Management: Bahena: Cath Placed During This Visit: yes Reason for Continuing Indwelling Catheter: Acute Urinary Retention or Obstruction Urinary Catheter Date of Insertion: 07/14/23 Urinary Catheter Time of Insertion: 21:00 Data 07/18/23 03:12 07/18/23 03:12 A&P Assessment and plan (1) Diastolic congestive heart failure: Qualifiers: Heart failure chronicity: acute Qualified Code(s): I50.31 - Acute diastolic (congestive) heart failure (2) Hypertension: Qualifiers: Hypertension type: essential hypertension Qualified Code(s): I10 - Essential (primary) hypertension (3) Acute on chronic diastolic (congestive) heart failure: (4) CAD (coronary artery disease): (5) Alzheimer disease: (6) Hypersomnia: (7) Acute hypoxemic respiratory failure: (8) Bilateral edema of lower extremity: (9) Anasarca: (10) Left lower lobe pneumonia: (11) Acute encephalopathy: (12) Atrial fibrillation, new onset: (13) Non-ST elevation NM (NSTEMI): Plan Acute hypoxic respiratory failure ? Secondary to left-sided multifocal pneumonia, ? With acute fluid overload, diastolic CHF exacerbation, 4+ pitting edema, anasarca, diffuse crackles on examination -cta chest - CT/CT angio chest PE protcl [id number] IMPRESSION: 1. No CT findings to indicate pulmonary embolus. 2. Scattered predominant alveolar infiltrate within the left lung, more prominent lower left lung and upper left lung, with left trace posterior pleural effusion. Findings are most suggestive multifocal pneumonia of the left lung, for follow-up. 3. Mild cardiomegaly. 4. Arteriosclerosis of the thoracic aorta and mild coronary artery calcification. ? Plan, ? Sputum cultures, blood cultures, Pro-Rudloph 0.07, CRP 44.1, respiratory viral panel negative ? Rocephin - azithromycin, -Fluid restrictions at 1000 cc, uop 5.9 L ? Lasix 40 mg IV twice daily, 1 dose metolazone, -9 L ? Monitor creatinine, monitor potassium ? Monitor respiratory status Left-sided multifocal pneumonia, as above Diastolic CHF, as above Atrial fibrillation ? No history of A-fib ? EKG shows A-fib, ? Serial EKGs, serial troponins, telemetry monitoring -Continue beta-juan - Eliquis 5 mg p.o. twice daily -cardiac echo NSTEMI CONCLUSIONS LV systolic function is moderate to severely reduced with EF of 30-35%. Moderate to severe global hypokinesis RV is moderately hypokinetic Biatrial dilation Moderate mitral regurgitation Moderate tricuspid regurgitation Moderate pulmonary hypertension IVC is dilated. Compared to prior echocardiogram from 2020, LV systolic function has significantly decreased. RV function is also low now. Mitral regurgitation and tricuspid regurgitation have progressed and are moderate now Cardiac catheterization in 2020 Conclusions 1. There is severe coronary artery disease with one vessel disease. Occluded recently placed distal ramus stent.. 2. Ramus was treated with three Balloon. Cardiac Recommendations * Patient has questionable compliance with medications. She mentioned she might not be taking her medicines and does not remember names of her medications. Patient has cognitive dysfunction. We attempted balloon angioplasty and were able to achieve JATINDER I-II flow however this vessel has poor outflow and multiple layers of stents. Given patient's poor compliance, multiple layers of stents and poor outflow we decided not to put another stent and treat residual stenosis. Stress testing -IMPRESSIONS 1. Myocardial perfusion imaging revealing small to moderate area of fixed defect involving the mid anteroseptal, apical septal and LV apex suggesting myocardial scarring in the distribution of the left anterior descending artery 2. Diminished LV ejection fraction of 36% 3. LV wall motion analysis revealing diffuse hypokinesia of the left ventricle, more so of the apex 4. Mildly dilated LV cavity with end-systolic volume of 82 ml Compared to the study from 09/23/2022, there is drop in the LV ejection fraction with no evidence of ischemia Plan, ? Continue Plavix, on aspirin, statin, beta-juan, medically managing Morbid obesity History of Alzheimer's disease Full code, ? Eliquis for DVT prophylaxis Plan for today, c -9 L, continue Lasix therapy, IV Lasix therapy, continue antibiotics up out of bed, plan on discharging the next 24 to 48 hours Attestations 2 Medical Necessity Statement*: Patient requires hospitalization for fluid overload requiring further diuresis Diagnoses Acute diastolic congestive heart failure I50.31 Heart failure chronicity: acute Essential hypertension I10 Hypertension type: essential hypertension Acute on chronic diastolic (congestive) heart failure I50.33 CAD (coronary artery disease) I25.10 Alzheimer disease G30.9; F02.80 Hypersomnia G47.10 Acute hypoxemic respiratory failure J96.01 Bilateral edema of lower extremity R60.0 Anasarca R60.1 Left lower lobe pneumonia J18.9 Acute encephalopathy G93.40 Atrial fibrillation, new onset I48.91 Non-ST elevation NM (NSTEMI) I21.4
[2023-07-18] MEDS: azithromycin 250 mg Tablet PO (16:25)
[2023-07-18] MEDS: pantoprazole 40 mg SDV IVP (16:25)
[2023-07-18] MEDS: cefTRIAXone 1,000 MG in sodium chloride 0.9% (plus) 50 ML 100 MG IV (16:26)
[2023-07-18] MEDS: famotidine 20 mg Tablet 40 MG PO (17:43)
[2023-07-18] MEDS: clopidogrel 75 mg Tablet PO (17:44)
[2023-07-18] MEDS: fluoxetine 20 mg Capsule PO (17:44)
[2023-07-18] MEDS: atorvastatin 40 mg Tablet PO (17:44)
[2023-07-18] MEDS: pramipexole 0.25 mg Tablet 0.125 MG PO (21:54)
[2023-07-18] MEDS: acetaminophen 500 mg Tablet 650 MG PO (23:26)
[2023-07-19] VITALS (9 sets, daily range): BP systolic 102–143; BP diastolic 72–97; PULSE 18–96; RESP 14–21; TEMP 36.6–36.9; O2SAT 87–96
[2023-07-19 04:31] LABS: Basophils % 0.5 %; Eosinophils # 0.1 10^3/uL (0.0-0.8); Eosinophils % 3.2 %; Hematocrit 37.7 % (36-47); Lymphocytes # 0.7 10^3/uL (0.8-4.8); Mean Corpuscular HGB Conc 31.8 g/dL (30-55); Mean Corpuscular Hemoglobin 29.3 pg (27-33); Mean Platelet Volume 9.5 fL (7.4-10.4); Monocytes # 0.5 10^3/uL (0.2-0.9); Monocytes % 10.9 %; Neutrophils # 2.75 10^3/uL (1.8-7.7); Neutrophils % 66.9 %; Nucleated Red Blood Cells % 0 %; Platelet Count 196 10^3/cmm (157-399); Red Cell Distribution Width 13.3 % (12.1-15.1); White Blood Count 4.11 10^3/uL (3.29-11.43)
[2023-07-19 04:51] LABS: Alanine Aminotransferase 16 U/L (0-33); Albumin Level 3.3 g/dL (3.5-5.2); Alkaline Phosphatase 73 U/L (35-105); Anion Gap 10.4 (5-19); Aspartate Amino Transferase 18 U/L (0-32); Blood Urea Nitrogen 12 mg/dL (8-23); Calcium 9.8 mg/dL (8.5-10.5); Carbon Dioxide 37 mmol/L (22-29); Chloride 87 mmol/L (98-107); Globulin 2.7 g/dL (1.3-4.6); Glucose 116 mg/dL (65-115); Magnesium 1.5 mg/dL (1.7-2.3); Osmolality Calculated 273 mOsm/kg (285-295); Phosphorus 3.3 mg/dL (2.5-4.5); Potassium 3.4 mmol/L (3.5-5.1); Sodium 131 mmol/L (136-145); Total Bilirubin 0.6 mg/dL (0.15-1.2)
[2023-07-19 05:00] LABS: NT Pro B Type Natriuretic Pept 3992 pg/mL (0-125)
[2023-07-19] MEDS: donepezil 5 MG Tablet 10 MG PO (06:34)
[2023-07-19] MEDS: isosorbide mononitrate ER 30 mg Tablet 60 MG PO (06:34)
[2023-07-19] MEDS: cetirizine 10 mg Tablet PO (06:34)
[2023-07-19] MEDS: amlodipine 10 mg Tablet PO (06:34)
[2023-07-19] MEDS: magnesium lactate 84 mg Tablet PO (08:39)
[2023-07-19] MEDS: metoprolol tartrate 50 mg Tablet PO (08:39)
[2023-07-19] MEDS: BuSPIRONE 10 mg Tablet 15 MG PO (08:39)
[2023-07-19] MEDS: spironolactone 25 mg Tablet PO (08:39)
[2023-07-19] MEDS: apixaban 5 mg Tablet PO (08:39)
[2023-07-19] MEDS: losartan 50 mg Tablet PO (08:39)
[2023-07-19] MEDS: magnesium sulfate premix 1 GM/100 ML PIGGYBACK IV (09:32)
[2023-07-19] MEDS: FUROsemide 10 mg/mL SDV 4mL 40 MG IVP (09:32)
--- NOTE | 2023-07-19 09:43 | PM.PN ---
Subjective Subjective: Patient is alert awake no acute distress. Vitals/I&O/Wt Last Vital Signs Temp 98.4 F 07/19/23 04:00 Pulse 77 07/19/23 06:00 Resp 21 H 07/19/23 04:00 BP 143/97 07/19/23 08:39 Pulse Ox 91 07/19/23 04:00 O2 Del Method Nasal Cannula 07/19/23 04:00 O2 Flow Rate 2 07/19/23 04:00 07/18/23 07/19/23 07/19/23 22:59 06:59 14:59 Intake Total 410 / 650 240 / 890 Output Total 750 / 2500 650 / 3150 Balance -340 / -1850 -410 / -2260 Weight last 48 hrs Weight 253 lb 6.4 oz Weight 264 lb Physical Exam Const: COMMON NORMALS: no acute distress and patient oriented x3 Resp: COMMON NORMALS: normal respiratory effort, No retractions, No use of accessory muscles and clear to auscultation bilaterally AUSCULTATION: clear to auscultation bilaterally Cardio: COMMON NORMALS: regular rate, regular rhythm, S1 normal heart sound present and S2 normal heart sound present RATE: regular rate RHYTHM: regular rhythm HEART SOUNDS: S1 normal heart sound present and S2 normal heart sound present GI: COMMON NORMALS: Normal to inspection, nondistended, normoactive bowel sounds present and non-tender Extremity: NARRATIVE EXTREMITY EXAM: 1+ pitting edema Neuro: COMMON NORMALS: patient oriented x3 Psych: COMMON NORMALS: mental status grossly normal Urinary Catheter Management: Bahena: Cath Placed During This Visit: yes Reason for Continuing Indwelling Catheter: Accurate Measurement of Urinary Output in Critically Ill Patients Urinary Catheter Date of Insertion: 07/14/23 Urinary Catheter Time of Insertion: 21:00 Data 07/19/23 04:16 07/19/23 04:16 A&P Assessment and plan (1) Congestive heart failure: Ejection fraction 35 to 40%. Symptoms improving. Continue diuresis. Replace potassium. She is is on losartan and beta-blockers. Patient might need to be switched to Entresto as an outpatient. Continue physical therapy as tolerated Qualifiers: Heart failure type: unspecified Heart failure chronicity: chronic Qualified Code(s): I50.9 - Heart failure, unspecified (2) Hypertension: Adequately controlled Qualifiers: Hypertension type: essential hypertension Qualified Code(s): I10 - Essential (primary) hypertension (3) Atrial fibrillation, new onset: Adequately controlled continue rate controlling medications. Attestations Medical Necessity Statement*: Deferred to internal medicine. Coding Level of Care Code Acute Code for [facility] Fwd Diagnoses Chronic congestive heart failure, unspecified heart failure type I50.9 Heart failure type: unspecified Heart failure chronicity: chronic Essential hypertension I10 Hypertension type: essential hypertension Atrial fibrillation, new onset I48.91
[2023-07-19] MEDS: lidocaine 1% 5 ML in potassium chloride premix 100 ML 26.25 ML IV (10:20)
--- NOTE | 2023-07-19 12:24 | P.DS_ITS ---
Discharge Providers Date of Admission: 07/14/23 17:11 Date of Discharge: July 19, 2023 Attending Provider at Admission: Yamil Charles MD Attending Provider at Discharge: Yamil Charles MD Primary Care Provider: Mary Lerma NP Diagnoses at Discharge Discharge Diagnosis (1) Congestive heart failure: Status: Acute Qualifiers: Heart failure type: unspecified Heart failure chronicity: chronic Qualified Code(s): I50.9 - Heart failure, unspecified (2) Hypertension: Status: Acute Qualifiers: Hypertension type: essential hypertension Qualified Code(s): I10 - Essential (primary) hypertension (3) Atrial fibrillation, new onset: Status: Acute Reason for Visit Reason for Visit: SOB Hospital Course Hospital Course Melvi Jaeger is a 73 year old female with a past medical history of dementia, morbid obesity, diastolic CHF, dyslipidemia, GERD, hypertension, who presents [facility] due to shortness of breath. Patient is currently accompanied by who is at bedside, patient has been developing worsening lower extremity edema, she was on 10 mg of Lasix which decreased to 20 now to 40, she continues to have generalized edema, anasarca, she has been complaining of shortness of breath, cough, intermittent fevers, no sick contacts, recent travel, no calf pain, no hemoptysis, currently she is on 2 L, has generalized anasarca, 4+ pitting edema This is a 73-year-old female, who presents to [facility] for acute hypoxic respiratory failure, secondary to left-sided multifocal pneumonia, with acute fluid overload, diastolic CHF exacerbation, 4+ pitting edema, anasarca, pulm edema, was admitted as inpatient received broad-spectrum antibiotic therapy, diuresis, overall clinically improved, will be discharged on doxycycline, remains afebrile, requires 2 L on discharge For diastolic CHF exacerbation, fluid overload, 4+ pitting edema, anasarca, she was diuresed over 11 L, overall clinically improved, will be discharged on Lasix 40 mg p.o. twice daily with potassium replacement therapy with close follow-up with primary care provider as outpatient for recheck creatinine and potassium advised to limit fluid intake between 1 to 2 L a day, For A-fib new onset, discharged on beta-juan, Eliquis therapy, advised to monitor for bloody or black stools, monitor hemoglobin as outpatient, if she develops lightheadedness or dizziness bloody or black stools to go to the emergency room. She should continue her Plavix on discharge aspirin was discontinued as triple therapy given her age, risk factors, is associated with high risk of bleeding events Patient had NSTEMI during hospitalization, no chest pain complaints, echocardiogram showed EF of 30 to 35%, echocardiogram, as below LV systolic function is moderate to severely reduced with EF of 30-35%. Moderate to severe global hypokinesis RV is moderately hypokinetic Biatrial dilation Moderate mitral regurgitation Moderate tricuspid regurgitation Moderate pulmonary hypertension IVC is dilated. Compared to prior echocardiogram from 2019, LV systolic function has significantly decreased. RV function is also low now. Mitral regurgitation and tricuspid regurgitation have progressed and are moderate now Cardiac catheterization in 2020 Conclusions 1. There is severe coronary artery disease with one vessel disease. Occluded recently placed distal ramus stent.. 2. Ramus was treated with three Balloon. Recommendations * Patient has questionable compliance with medications. She mentioned she might not be taking her medicines and does not remember names of her medications. Patient has cognitive dysfunction. We attempted balloon angioplasty and were able to achieve JATINDER I-II flow however this vessel has poor outflow and multiple layers of stents. Given patient's poor compliance, multiple layers of stents and poor outflow we decided not to put another stent and treat residual stenosis. Thus patient underwent cardiac stress testing which showed Stress testing -IMPRESSIONS 1. Myocardial perfusion imaging revealing small to moderate area of fixed defect involving the mid anteroseptal, apical septal and LV apex suggesting myocardial scarring in the distribution of the left anterior descending artery 2. Diminished LV ejection fraction of 36% 3. LV wall motion analysis revealing diffuse hypokinesia of the left ventricle, more so of the apex 4. Mildly dilated LV cavity with end-systolic volume of 82 ml Compared to the study from 09/23/2022, there is drop in the LV ejection fraction with no evidence of ischemia -After speaking with cardiology, cardiology wanted to medically manage, continue Plavix, statin, beta-juan, Eliquis, -Patient was advised if she has any recurrent chest pain to go to the emergency room -Follow-up with cardiology as outpatient Physical Exam Const: COMMON NORMALS: no acute distress ORIENTATION/CONSCIOUSNESS: Yes awake, Yes oriented to person and Yes oriented to place; not oriented to time Resp: COMMON NORMALS: normal respiratory effort, No retractions, No use of accessory muscles and clear to auscultation bilaterally AUSCULTATION: clear to auscultation bilaterally Cardio: COMMON NORMALS: regular rate, regular rhythm, S1 normal heart sound p resent and S2 normal heart sound present RATE: regular rate RHYTHM: regular rhythm HEART SOUNDS: S1 normal heart sound present and S2 normal heart sound present GI: COMMON NORMALS: Normal to inspection, nondistended, normoactive bowel sounds present and non-tender Extremity: COMMON NORMALS: no pedal edema Neuro: SENSORIUM/ORIENTATION: Yes oriented to person, Yes oriented to place and No oriented to time Psych: COMMON NORMALS: mental status grossly normal Urinary Catheter Management: Ba[place]a: Cath Placed During This Visit: yes Reason for Continuing Indwelling Catheter: Accurate Measurement of Urinary Output in Critically Ill Patients Urinary Catheter Date of Insertion: 07/14/23 Urinary Catheter Time of Insertion: 21:00 Discharge Data Studies Completed and Pending Completed Studies During Hospitalization Category Date Time Status CT angio chest PE protcl [id number] Stat Cat Scan 07/14/23 15:43 Completed Cardiac Stress Test MIBI [Sestamibi Stress Test Request Exams 07/16/23 17:39 Completed ] Routine XR chest 1V portable [id number] Stat Exams 07/14/23 13:17 Completed NM simin perf SPECT r/s* [id number] Routine Nuc Med 07/17/23 08:00 Completed CV. echo complete* [id number] Stat Ultrasound 07/14/23 16:34 Completed Pending at discharge Category Date Time Status Blood Cultures ([facility]) Routine Lab 07/14/23 06:00 Results Blood Cultures ([facility]) Routine Lab 07/14/23 17:42 Results Complete Blood Count w/Auto AM LABS Lab 07/20/23 04:00 Ordered Comprehensive Metabolic Panel AM LABS Lab 07/20/23 04:00 Ordered Magnesium AM LABS Lab 07/20/23 04:00 Ordered NT Pro B Type Natriuretic Pept QAM Lab 07/20/23 06:00 Ordered NT Pro B Type Natriuretic Pept QAM Lab 07/21/23 06:00 Ordered Phosphorus AM LABS Lab 07/20/23 04:00 Ordered Sputum Culture and Gram Stain Stat Lab 07/14/23 16:13 Uncollected Radiology Impressions Chest X-Ray 07/14/23 13:17 IMPRESSION: Multifocal left-sided pneumonia. Chest CTA 07/14/23 15:43 IMPRESSION: 1. No CT findings to indicate pulmonary embolus. 2. Scattered predominant alveolar infiltrate within the left lung, more prominent lower left lung and upper left lung, with left trace posterior pleural effusion. Findings are most suggestive multifocal pneumonia of the left lung, for follow-up. 3. Mild cardiomegaly. 4. Arteriosclerosis of the thoracic aorta and mild coronary artery calcification. Laboratory Results WBC 4.11 10^3/uL (3.29-11.43) 07/19/23 04:16 RBC 4.10 10^6/uL (3.85-5.65) 07/19/23 04:16 Hgb 12.00 g/dL (11.27-16.99) 07/19/23 04:16 Hct 37.7 % (36-47) 07/19/23 04:16 MCV 92.0 fl (85-98) 07/19/23 04:16 MCH 29.3 pg (27-33) 07/19/23 04:16 MCHC 31.8 g/dL (30-55) 07/19/23 04:16 RDW 13.3 % (12.1-15.1) 07/19/23 04:16 Plt Count 196 10^3/cmm (157-399) 07/19/23 04:16 MPV 9.5 fL (7.4-10.4) 07/19/23 04:16 Neut % (Auto) 66.9 % 07/19/23 04:16 Lymph % (Auto) 18.0 % 07/19/23 04:16 [place] % (Auto) 10.9 % 07/19/23 04:16 Eos % (Auto) 3.2 % 07/19/23 04:16 Baso % (Auto) 0.5 % 07/19/23 04:16 Neut # (Auto) 2.75 10^3/uL (1.8-7.7) 07/19/23 04:16 Lymph # (Auto) 0.7 10^3/uL (0.8-4.8) L 07/19/23 04:16 [place] # (Auto) 0.5 10^3/uL (0.2-0.9) 07/19/23 04:16 Eos # (Auto) 0.1 10^3/uL (0.0-0.8) 07/19/23 04:16 Baso # (Auto) 0.0 10^3/uL (0.0-0.1) 07/19/23 04:16 Nucleated RBC % (auto) 0 % 07/19/23 04:16 Nucleated RBCs # 0.0 /100WBC 07/19/23 04:16 PT 15.10 SECONDS (12.1-14.9) H 07/14/23 18:54 INR 1.15 (0.8-1.2) 07/14/23 18:54 APTT 33.0 SECONDS (23.9-36.7) 07/14/23 14:04 Specimen Type Venous 07/14/23 14:03 Sample Site Not specified 07/14/23 14:03 Han Test N/a 07/14/23 14:03 VBG pH 7.41 (7.32-7.42) 07/14/23 14:03 VBG pCO2 54.1 mmHg (41-51) H 07/14/23 14:03 VBG pO2 44.9 mmHg (25-40) H 07/14/23 14:03 VBG HCO3 34.5 mmol/L (24-28) H 07/14/23 14:03 VBG Base Excess 8.3 mmol/L (-3.0-3.0) H 07/14/23 14:03 VBG Hematocrit 37.3 % (37-47) 07/14/23 14:03 O2 Delivery Device N/a 07/14/23 14:03 Machine Tailer ID Amh 07/14/23 14:03 Sodium 131 mmol/L (136-145) L 07/19/23 04:16 Potassium 3.4 mmol/L (3.5-5.1) L 07/19/23 04:16 Chloride 87 mmol/L (98-107) L 07/19/23 04:16 Carbon Dioxide 37 mmol/L (22-29) H 07/19/23 04:16 Anion Gap 10.4 (5-19) 07/19/23 04:16 BUN 12 mg/dL (8-23) 07/19/23 04:16 Creatinine 0.6 mg/dL (0.5-0.9) 07/19/23 04:16 GFR Calculation Not Reportable 07/19/23 04:16 Glucose 116 mg/dL (65-115) H 07/19/23 04:16 Calculated Osmolality 273 mOsm/kg (285-295) L 07/19/23 04:16 Lactic Acid 1.0 mmol/L (0.5-2.2) 07/15/23 06:00 Calcium 9.8 mg/dL (8.5-10.5) 07/19/23 04:16 Phosphorus 3.3 mg/dL (2.5-4.5) 07/19/23 04:16 Magnesium 1.5 mg/dL (1.7-2.3) L 07/19/23 04:16 Total Bilirubin 0.6 mg/dL (0.15-1.2) 07/19/23 04:16 AST 18 U/L (0-32) 07/19/23 04:16 ALT 16 U/L (0-33) 07/19/23 04:16 Alkaline Phosphatase 73 U/L (35-105) 07/19/23 04:16 Troponin T Baseline 25 ng/L (0-10) H 07/14/23 14:04 Troponin T 120 Minute 24.03 ng/L (0-10) H 07/14/23 18:54 Delta Troponin T -0.97 ABS# (0-10) L 07/14/23 18:54 Troponin T Hi Sens 6Hr 23.41 ng/L (0-10) H 07/15/23 06:00 Troponin T Hi Sens 6Hr Delta -1.59 ng/L (0-12) L 07/15/23 06:00 C-Reactive Protein 44.1 mg/L (0.0-4.9) H 07/14/23 14:04 NT-Pro-B Natriuret Pep 3992 pg/mL (0-125) H 07/19/23 04:16 Total Protein 6.0 g/dL (6.6-8.7) L 07/19/23 04:16 Albumin 3.3 g/dL (3.5-5.2) L 07/19/23 04:16 Globulin 2.7 g/dL (1.3-4.6) 07/19/23 04:16 Procalcitonin 0.07 ng/mL (0-0.5) 07/14/23 14:04 TSH 1.00 uIU/mL (0.27-4.20) 07/15/23 06:00 Adenovirus (PCR) Not detected (NOT DETECT) 07/14/23 16:34 C. pneumoniae DNA (PCR) Not detected (NOT DETECT) 07/14/23 16:34 C. difficile Tox (PCR) Not detected (NOT DETECTED) 07/14/23 21:30 Coronavirus 229E (PCR) Not detected (NOT DETECT) 07/14/23 16:34 Human Metapneumovir PCR Not detected (NOT DETECT) 07/14/23 16:34 Influenza A (H1) PCR Not detected (NOT DETECT) 07/14/23 16:34 Influ A (H1/09) PCR Not detected (NOT DETECT) 07/14/23 16:34 Influenza A (H3) PCR Not detected (NOT DETECT) 07/14/23 16:34 Influenza Type A (PCR) Not detected (NOT DETECT) 07/14/23 16:34 Influenza Type B (PCR) Not detected (NOT DETECT) 07/14/23 16:34 M. pneumoniae (PCR) Not detected (NOT DETECT) 07/14/23 16:34 Parainfluenza 1 (PCR) Not detected (NOT DETECT) 07/14/23 16:34 Parainfluenza 2 (PCR) Not detected (NOT DETECT) 07/14/23 16:34 Parainfluenza 3 (PCR) Not detected (NOT DETECT) 07/14/23 16:34 Parainfluenza 4 (PCR) Not detected (NOT DETECT) 07/14/23 16:34 RSV Type A (PCR) Not detected (NOT DETECT) 07/14/23 16:34 RSV Type B (PCR) Not detected (NOT DETECT) 07/14/23 16:34 Entero/Rhino (PCR) Not detected (NOT DETECT) 07/14/23 16:34 SARS-CoV-2 (PCR) Not detected (NOT DETECT) 07/14/23 16:34 Vitals Last Vital Signs Temp 97.8 F 07/19/23 08:00 Pulse 71 07/19/23 08:00 Resp 14 07/19/23 08:00 BP 143/97 07/19/23 08:39 Pulse Ox 92 07/19/23 08:00 O2 Del Method Nasal Cannula 07/19/23 08:00 O2 Flow Rate 2 07/19/23 08:00 Discharge Plan Discharge Patient Disposition: Home Condition: Stable Prescriptions: New furosemide [Lasix] 40 mg tablet 40 mg PO BID 30 Days Qty: 60 0RF doxycycline hyclate 100 mg tablet 100 mg PO BID 5 Days Qty: 10 0RF magnesium L-lactate [Magtab] 84 mg Tablet Extended Release 84 mg PO DAILY 30 Days Qty: 30 0RF losartan 50 mg Tablet 50 mg PO DAILY 30 Days Qty: 30 0RF spironolactone 25 mg Tablet 25 mg PO DAILY 30 Days Qty: 30 0RF Eliquis 5 mg Tablet 5 mg PO BID@0900,2100 30 Days Qty: 60 0RF Continued simethicone [Gas-X Extra Strength] 125 mg tablet,chewable 125 mg PO BID amlodipine 10 mg tablet 10 mg PO QAM Hold Instructions: Resume on 04/27/20. pramipexole 0.125 mg tablet 0.125 mg PO BEDTIME cetirizine 10 mg tablet 10 mg PO QAM baclofen 20 mg tablet 20 mg PO TID PRN (Reason: spasms) buspirone 15 mg tablet 15 mg PO BID famotidine 40 mg tablet 40 mg PO QPM nitroglycerin 0.4 mg tablet, sublingual 0.4 mg sublingual Q5M PRN (Reason: Chest Pain) Qty: 50 3RF clopidogrel 75 mg tablet 75 mg PO QPM fluoxetine 20 mg capsule 20 mg PO QPM atorvastatin 40 mg tablet 40 mg PO QPM oxycodone-acetaminophen 7.5-325 mg tablet 1 tab PO Q8H PRN (Reason: Pain) metoprolol tartrate 100 mg Tablet 50 mg PO BID acetaminophen 500 mg Tablet 1,000 mg PO Q6H PRN (Reason: Pain) Lactaid 3,000 unit Tablet 3,000 unit PO TID donepezil 10 mg tablet 10 mg PO QAM Changed isosorbide mononitrate 30 mg tablet extended release 24 hr 60 mg PO QAM 30 Days Qty: 30 0RF potassium chloride 20 mEq tablet,ER particles/crystals 20 meq PO BID 30 Days Qty: 60 0RF Discontinued lisinopril 40 mg tablet 40 mg PO QPM furosemide [Lasix] 20 mg tablet 40 mg PO QAM Rx Instructions: (FILLED AT [facility]) aspirin 81 mg tablet,delayed release (DR/EC) 81 mg PO QPM Discharge Orders: Discharge Order (Routine); Ordered 07/19/23 Ordered By: Yamil Charles Referrals: Axel Gibson MD [Physician] - 2 weeks (We have notified your physician's clinic of the need for a follow-up appointment to be scheduled. If you have not heard from them within the next 2 business days, please call them directly. ) Mary Lerma NP [Primary Care Provider] - (Please call [facility] to schedule an follow-up appointment within 4 to 7 days. Thank you ) Discharge Diet: Cardiac Discharge Activity: Resume usual activity Patient Instructions: Spironolactone (By mouth) ([place], Karospir), Furosemide (By mouth) (Lasix), Doxycycline (By mouth), Losartan (By mouth) (Cozaar), Apixaban (By mouth) (Eliquis), Heart Failure (DC), A-fib (Atrial Fibrillation) (DC), Pulmonary Edema (DC), CHF Stoplight, Opioid Safety Activity Restrictions/Additional Instructions: - Please limit fluid intake to 1 to 2 L of fluid a day -Please take Lasix 40 mg twice daily, with potassium replacement therapy -See your primary care provider early next week for recheck kidney function and recheck potassium -Please follow-up with cardiology -We have discharged on Eliquis, which is a strong blood thinner for A-fib, if you develop bloody or black stools please go to emergency room - Discharge Attestations Time Spent in Discharge Care*: greater than 30 min Quality Metrics Clinical Quality Measures [ No reported AMI, CVA or VTE this stay] Coding Level of Care Code 64943 Total time (in minutes) for Discharge: 45 Diagnoses Chronic congestive heart failure, unspecified heart failure type I50.9 Heart failure type: unspecified Heart failure chronicity: chronic Essential hypertension I10 Hypertension type: essential hypertension Atrial fibrillation, new onset I48.91
== END 2023-07-19 16:46 | disposition home or self-care (01) | DRG 280 ==
LOC: ER 14:09 → CSU 17:12
PROVIDERS: Student in an Organized Health Care Education/Training Program; Admitting Provider Family Medicine; Emergency Provider Emergency Medicine; PCP Nurse Practitioner Family; Visit Provider Family Medicine
DX: I11.0 Hypertensive heart disease with heart failure (principal); I50.33 Acute on chronic diastolic (congestive) heart failure; I21.4 Non-ST elevation (NSTEMI) myocardial infarction; J18.9 Pneumonia, unspecified organism; J96.01 Acute respiratory failure with hypoxia; Z68.41 Body mass index [BMI] 40.0-44.9, adult; I48.91 Unspecified atrial fibrillation; G30.9 Alzheimer's disease, unspecified; F02.80 Dementia in other diseases classified elsewhere, unspecified severity, without behavioral disturbance, psychotic disturbance, mood disturbance, and anxiety; E66.01 Morbid (severe) obesity due to excess calories; E78.00 Pure hypercholesterolemia, unspecified; K21.9 Gastro-esophageal reflux disease without esophagitis; I25.10 Atherosclerotic heart disease of native coronary artery without angina pectoris; G47.10 Hypersomnia, unspecified; Z11.52 Encounter for screening for COVID-19; Z95.5 Presence of coronary angioplasty implant and graft; Z85.828 Personal history of other malignant neoplasm of skin; I25.2 Old myocardial infarction; Z85.42 Personal history of malignant neoplasm of other parts of uterus; Z90.710 Acquired absence of both cervix and uterus; Z82.3 Family history of stroke; Z82.49 Family history of ischemic heart disease and other diseases of the circulatory system; Z87.891 Personal history of nicotine dependence
CPT/HCPCS: 36415; 51702; 71045; 71275; 78452; 80053; 82803; 83605; 83735; 83880; 84100; 84145; 84443; 84484; 85025; 85610; 85730; 86140; 87040; 87486; 87493; 87581; 87633; 93005; 93017; 93306; 94664; 94760; 96372; 96374; 96375; 96376; 97110; 97116; 97161; 97530; 99285; A9500; C9113; J0456; J0696; J1650; J1940; J2785; J3475; J3480; J3490; J7050; Q0144; Q9967

== ENCOUNTER → 2023-08-26 14:22 | Outpatient (BNVA) | payer MEDICARE, SELFPAY | PROVIDERS: PCP Nurse Practitioner Family; Visit Provider Nurse Practitioner Family | DX: I25.10 Atherosclerotic heart disease of native coronary artery without angina pectoris (principal); I48.91 Unspecified atrial fibrillation; I11.0 Hypertensive heart disease with heart failure; I50.30 Unspecified diastolic (congestive) heart failure | CPT/HCPCS: 99214 ==

== ENCOUNTER → 2023-09-29 15:20 | Outpatient (BNVA) | payer MEDICARE, SELFPAY | PROVIDERS: PCP Nurse Practitioner Family; Visit Provider Internal Medicine Cardiovascular Disease | DX: I25.5 Ischemic cardiomyopathy (principal); I50.20 Unspecified systolic (congestive) heart failure; R06.02 Shortness of breath; I10 Essential (primary) hypertension; I42.0 Dilated cardiomyopathy; I48.91 Unspecified atrial fibrillation; I25.118 Atherosclerotic heart disease of native coronary artery with other forms of angina pectoris; E78.00 Pure hypercholesterolemia, unspecified | CPT/HCPCS: 36415; 80048; 83880; 99214 ==

== ENCOUNTER → 2023-11-09 11:16 | Outpatient (BNVA) | payer MEDICARE, SELFPAY | PROVIDERS: PCP Nurse Practitioner Family; Visit Provider Nurse Practitioner Family | DX: I42.0 Dilated cardiomyopathy (principal); Z87.891 Personal history of nicotine dependence | CPT/HCPCS: 99214 ==

== ENCOUNTER → 2024-03-31 16:47 | Outpatient (BNVA) | payer MEDICARE, SELFPAY | PROVIDERS: PCP Nurse Practitioner Family; Visit Provider Internal Medicine Cardiovascular Disease | DX: R06.02 Shortness of breath (principal) | CPT/HCPCS: 36415; 80048; 83880 ==

== ENCOUNTER 2024-05-12 12:17 | Outpatient (CLI) | payer MEDICARE, SELFPAY ==
[2024-05-12 13:07] LABS: Anion Gap 16.8 (5-19); Blood Urea Nitrogen 15 mg/dL (8-23); Calcium 9.7 mg/dL (8.5-10.5); Carbon Dioxide 27 mmol/L (22-29); Chloride 97 mmol/L (98-107); Glucose 103 mg/dL (65-115); NT Pro B Type Natriuretic Pept 2297 pg/mL (0-125); Osmolality Calculated 285 mOsm/kg (285-295); Potassium 3.8 mmol/L (3.5-5.1); Sodium 137 mmol/L (136-145)
== END 2024-05-12 12:18 | disposition home or self-care (01) ==
PROVIDERS: PCP Nurse Practitioner Family; Visit Provider Internal Medicine Cardiovascular Disease
DX: I10 Essential (primary) hypertension (principal); I42.9 Cardiomyopathy, unspecified; I42.0 Dilated cardiomyopathy
CPT/HCPCS: 36415; 80048; 83880; 93308

== ENCOUNTER 2024-05-31 06:00 | Outpatient (RCR) | payer MEDICARE, SELFPAY | END 2024-06-04 23:59 | disposition home or self-care (01) | LOC: WPT 06:00 | PROVIDERS: PCP Nurse Practitioner Family; Visit Provider Nurse Practitioner Family | DX: M54.59 Other low back pain (principal) | CPT/HCPCS: 97161 ==

== ENCOUNTER 2024-06-05 06:00 | Outpatient (RCR) | payer MEDICARE, SELFPAY | END 2024-07-05 23:59 | disposition home or self-care (01) | LOC: WPT 06:00 | PROVIDERS: PCP Nurse Practitioner Family; Visit Provider Nurse Practitioner Family | DX: M54.59 Other low back pain (principal) | CPT/HCPCS: 97110; 97112; 97530 ==

== ENCOUNTER 2024-07-06 06:00 | Outpatient (RCR) | payer MEDICARE, SELFPAY | END 2024-08-05 23:59 | disposition home or self-care (01) | LOC: WPT 06:00 | PROVIDERS: PCP Nurse Practitioner Family; Visit Provider Nurse Practitioner Family | DX: M54.59 Other low back pain (principal) | CPT/HCPCS: 97110; 97112; 97530 ==

== ENCOUNTER → 2024-07-12 14:31 | Outpatient (BNVA) | payer MEDICARE, SELFPAY | PROVIDERS: PCP Nurse Practitioner Family; Visit Provider Specialist | DX: R41.3 Other amnesia (principal); G30.9 Alzheimer's disease, unspecified; F02.80 Dementia in other diseases classified elsewhere, unspecified severity, without behavioral disturbance, psychotic disturbance, mood disturbance, and anxiety; G47.10 Hypersomnia, unspecified; F41.8 Other specified anxiety disorders | CPT/HCPCS: 99214 ==

== ENCOUNTER → 2024-09-29 13:53 | Outpatient (BNVA) | payer MEDICARE, SELFPAY | PROVIDERS: PCP Nurse Practitioner Family; Visit Provider Internal Medicine Cardiovascular Disease | DX: I48.91 Unspecified atrial fibrillation (principal); Z79.01 Long term (current) use of anticoagulants; I42.8 Other cardiomyopathies; I25.10 Atherosclerotic heart disease of native coronary artery without angina pectoris; I11.0 Hypertensive heart disease with heart failure; I50.33 Acute on chronic diastolic (congestive) heart failure; E78.00 Pure hypercholesterolemia, unspecified; Z87.891 Personal history of nicotine dependence; Z95.5 Presence of coronary angioplasty implant and graft; I25.2 Old myocardial infarction | CPT/HCPCS: 99214 ==

== ENCOUNTER → 2025-01-02 10:57 | Outpatient (BNVA) | payer MEDICARE, SELFPAY | PROVIDERS: PCP Nurse Practitioner Family; Visit Provider Nurse Practitioner Family | DX: I11.0 Hypertensive heart disease with heart failure (principal); I50.30 Unspecified diastolic (congestive) heart failure; I48.91 Unspecified atrial fibrillation; Z79.01 Long term (current) use of anticoagulants; I42.8 Other cardiomyopathies; I25.10 Atherosclerotic heart disease of native coronary artery without angina pectoris; E78.00 Pure hypercholesterolemia, unspecified; Z95.5 Presence of coronary angioplasty implant and graft; Z87.891 Personal history of nicotine dependence; I25.2 Old myocardial infarction | CPT/HCPCS: 36415; 80048; 83880; 85025; 99213 ==

== ENCOUNTER 2025-01-24 13:21 | Outpatient (CLI) | payer MEDICARE, SELFPAY ==
--- NOTE | 2025-01-24 13:20 | MM_ITS ---
WS: [id number] BILATERAL 3D TOMOSYNTHESIS DIGITAL SCREENING MAMMOGRAM WITH CAD CLINICAL INFORMATION: SCREENING HISTORY: Screening mammogram. No current complaints. COMPARISON: 2021 TECHNIQUE: Bilateral CC and MLO views. FINDINGS: Fatty-replaced breasts bilaterally. No suspicious focal mass, asymmetry, calcifications, or architectural distortion. No evidence of malignancy. Punctate and lucent centered calcifications. MM/MM scr tomosynthesis [id number] IMPRESSION: DENSITY: The breasts are almost entirely fatty. BI-RADS: 2 - Benign. FOLLOW UP: 1 Year Follow-up Recommend return to annual screening mammography.
== END 2025-01-24 13:22 | disposition home or self-care (01) ==
LOC: MOBLMAM 13:24
PROVIDERS: PCP Nurse Practitioner Family; Visit Provider Nurse Practitioner Family
DX: Z12.31 Encounter for screening mammogram for malignant neoplasm of breast (principal); R92.313 Mammographic fatty tissue density, bilateral breasts; R92.1 Mammographic calcification found on diagnostic imaging of breast
CPT/HCPCS: 77063; 77067

== ENCOUNTER → 2025-06-07 11:05 | Outpatient (BNVA) | payer MEDICARE, SELFPAY | PROVIDERS: PCP Nurse Practitioner Family; Visit Provider Internal Medicine Cardiovascular Disease | DX: I48.20 Chronic atrial fibrillation, unspecified (principal); Z79.02 Long term (current) use of antithrombotics/antiplatelets; I42.0 Dilated cardiomyopathy; I25.10 Atherosclerotic heart disease of native coronary artery without angina pectoris; I10 Essential (primary) hypertension; E78.00 Pure hypercholesterolemia, unspecified; Z95.5 Presence of coronary angioplasty implant and graft; Z87.891 Personal history of nicotine dependence; R07.9 Chest pain, unspecified; I48.91 Unspecified atrial fibrillation; R94.31 Abnormal electrocardiogram [ECG] [EKG]; I25.2 Old myocardial infarction; I44.4 Left anterior fascicular block | CPT/HCPCS: 93005; 99214 ==